=== PATIENT | female | born 1955 | race Caucasian/White ===

== ENCOUNTER → 2016-09-17 | Outpatient (CLI) | payer BC ==
[2016-09-17 15:25] LABS: CH 32.3; CHCM 33.4; HCT 36.3 % (34.0-46.0); HDW 2.37; Large Platelets Flag Moderate; MCH 32.2 pg (25.0-35.0); MCHC 33.1 g/dL (31.0-37.0); MCV 97.4 fL (80.0-100.0); RBC 3.72 m/uL (3.80-5.40); RDW 13.9 % (11.5-15.5); WBC 6.8 k/uL (3.8-10.6)
[2016-09-17 15:30] LABS: Appearance,Urine Cloudy (Clear); Bacteria,Urine Many /hpf; Bilirubin,Urine Negative (Negative); Glucose,Urine (UA) 1+ (Negative); Ketones,Urine Negative (Negative); Leukocyte Esterase,Urine Large (Negative); Nitrite,Urine Negative (Negative); Particle Count 1460; Protein,Urine Negative (Negative); RBC,Urine 1 /hpf (0-5); Specific Gravity,Urine 1.007 (1.001-1.035); Squamous Epithelial Cell,Urine 2 /hpf (0-4); UA Billing (MACRO vs. MICRO) MICRO; WBC,Urine 159 /hpf (0-5)
== END | disposition home or self-care (01) ==
LOC: LABWHC1 14:52
PROVIDERS: ATTEND Internal Medicine Endocrinology, Diabetes & Metabolism
DX: N30.00 Acute cystitis without hematuria (principal); E11.65 Type 2 diabetes mellitus with hyperglycemia
CPT/HCPCS: 36415; 81001; 85027; 87077; 87086; 87186

== ENCOUNTER 2016-09-21 14:11 | Emergency (ER) | payer BC ==
[2016-09-21 14:21] VITALS: PULSE 67; TEMP 97
[2016-09-21] MEDS ORDERED: SODIUM CHLORIDE 0.9% 500 ML IV STA (16:19)
[2016-09-21 16:46] LABS: Appearance,Urine Clear (Clear); Bilirubin,Urine 1+ (Negative); Glucose,Urine (UA) Negative (Negative); Ketones,Urine Negative (Negative); Leukocyte Esterase,Urine Negative (Negative); Nitrite,Urine Negative (Negative); Protein,Urine Negative (Negative); Specific Gravity,Urine 1.009 (1.001-1.035); UA Billing (MACRO vs. MICRO) CHEM
--- NOTE | 2016-09-21 16:54 | ED ---
Nausea/Vomiting/Diarrhea HPI - General Chief complaint: Nausea/Vomiting/Diarrhea Stated complaint: UTI Time Seen by Provider: 09/21/16 15:58 Source: patient, RN notes reviewed Mode of arrival: ambulatory Limitations: no limitations - History of Present Illness Initial comments: 61-year-old female presents emergency Department with multiple abdominal complaints. Patient states that the symptoms. She did this she was discharged on metformin which she was having diarrhea. Patient states that the point she was switched off the metformin and was black on her NovoLog. Patient states that recently she has been having some dysuria and was placed on ciprofloxacin for UTI. Patient states she seems there is no improvement this time she states she has abdominal discomfort and continue urination issues. Patient denies any fever, chills denies any nausea vomiting currently but states that she did have a few episodes other day no she saw her primary care physician for all this. Patient also complains of a cough which is slightly productive. - Related Data Home Medications Medication Instructions Recorded Confirmed Atenolol [Tenormin] 25 mg PO BID 01/14/15 09/21/16 Hydrochlorothiazide [Hydrodiuril] 25 mg PO DAILY 01/14/15 09/21/16 Insulin Aspart [Novolog Flexpen] 25 unit SQ AC-TID 01/14/15 09/21/16 Insulin Glargine,Hum.rec.anlog 115 unit SQ HS 01/14/15 09/21/16 [Lantus Solostar] Aspirin 81 mg PO DAILY 09/09/15 09/21/16 Insulin Glargine,Hum.rec.anlog 35 unit SQ QAM 09/09/15 09/21/16 [Lantus Solostar] Ciprofloxacin HCl [Cipro] 500 mg PO BID 09/21/16 09/21/16 Losartan Potassium 100 mg PO DAILY 09/21/16 09/21/16 Multivit-Min/Iron/Folic/Lutein 1 tab PO DAILY 09/21/16 09/21/16 [Centrum Silver Women Tablet] Previous Rx's Medication Instructions Recorded Benzonatate [Tessalon Perles] 100 mg PO TID PRN #15 capsule 09/21/16 Allergies Allergy/AdvReac Type Severity Reaction Status Date / Time Penicillins Allergy Unknown Verified 09/21/16 16:24 Childhood Review of Systems ROS Statement: Those systems with pertinent positive or pertinent negative responses have been documented in the HPI. ROS Other: All systems not noted in ROS Statement are negative. Past Medical History Past Medical History: Diabetes Mellitus, Hypertension, Skin Disorder Additional Past Medical History / Comment(s): Eczema, hx. kidney stone, neuropathy dewey feet and hands, occas lightheaded and dizziness, dewey charcot feet. History of Any Multi-Drug Resistant Organisms: None Reported Past Surgical History: Hysterectomy Additional Past Surgical History / Comment(s): kidney stone Past Anesthesia/Blood Transfusion Reactions: No Reported Reaction Past Psychological History: No Psychological Hx Reported Smoking Status: Never smoker - Past Family History Mother Family Medical History: No Reported History Father Family Medical History: No Reported History Sister(s) Family Medical History: Cancer Additional Family Medical History / Comment(s): Colon General Exam Limitations: no limitations General appearance: alert, in no apparent distress Head exam: Present: atraumatic, normocephalic, normal inspection Respiratory exam: Present: normal lung sounds bilaterally. Absent: respiratory distress, wheezes, rales, rhonchi, stridor Cardiovascular Exam: Present: regular rate, normal rhythm, normal heart sounds. Absent: systolic murmur, diastolic murmur, rubs, gallop, clicks GI/Abdominal exam: Present: soft, tenderness (Mild to moderate diffuse), normal bowel sounds. Absent: distended, guarding, rebound, rigid Back exam: Absent: CVA tenderness (R), CVA tenderness (L) Neurological exam: Present: alert, oriented X3, CN II-XII intact Skin exam: Present: warm, dry, intact, normal color. Absent: rash Course Vital Signs 09/21/16 09/21/16 14:17 18:20 Temperature 97.0 F L Pulse Rate 67 67 Respiratory 18 16 Rate Blood Pressure 101/60 130/57 O2 Sat by Pulse 98 97 Oximetry Medical Decision Making - Medical Decision Making 61-year-old female presented for multiple complaints. Patient urinalysis does not show any evidence DVT I she did have UTI a few days ago culture does show ciprofloxacin is susceptible. Patient did have mild elevation of her liver function ultrasound does not show an acute abnormality and looking through past medical history of her lab results it does show elevation of his liver functions. Patient complained of cough which x-ray does not show an acute abnormality. Patient has no evidence of leukocytosis no fever and vitals are stable. Patient be discharged with her symptoms for her cough advised follow- up with on-call GI doctor tomorrow for evaluation return parameters were discussed. - Lab Data Result diagrams: 09/21/16 17:00 09/21/16 17:00 Lab Results 09/21/16 09/21/16 09/21/16 Range/Units 16:43 17:00 17:00 WBC 7.7 (3.8-10.6) k/uL RBC 3.71 L (3.80-5.40) m/uL Hgb 12.2 (11.4-16.0) gm/dL Hct 35.8 (34.0-46.0) % MCV 96.5 (80.0-100.0) fL MCH 32.8 (25.0-35.0) pg MCHC 34.0 (31.0-37.0) g/dL RDW 14.6 (11.5-15.5) % Plt Count 125 L (150-450) k/uL Neutrophils % 75 % Lymphocytes % 14 % Monocytes % 6 % Eosinophils % 2 % Basophils % 0 % Neutrophils # 5.8 (1.3-7.7) k/uL Lymphocytes # 1.1 (1.0-4.8) k/uL Monocytes # 0.5 (0-1.0) k/uL Eosinophils # 0.2 (0-0.7) k/uL Basophils # 0.0 (0-0.2) k/uL Sodium 137 (137-145) mmol/L Potassium 3.9 (3.5-5.1) mmol/L Chloride 99 (98-107) mmol/L Carbon Dioxide 26 (22-30) mmol/L Anion Gap 12 mmol/L BUN 23 H (7-17) mg/dL Creatinine 1.00 (0.52-1.04) mg/dL Est GFR (MDRD) Af Amer >60 (>60 ml/min/1.73 sqM) Est GFR (MDRD) Non-Af 56 (>60 ml/min/1.73 sqM) Glucose 221 H (74-99) mg/dL Calcium 8.8 (8.4-10.2) mg/dL Total Bilirubin 3.1 H (0.2-1.3) mg/dL AST 75 H (14-36) U/L ALT 73 H (9-52) U/L Alkaline Phosphatase 315 H (38-126) U/L Total Protein 6.3 (6.3-8.2) g/dL Albumin 3.5 (3.5-5.0) g/dL Amylase <30 L (30-110) U/L Lipase 45 (23-300) U/L Urine Color Dark Yellow Urine Appearance Clear (Clear) Urine pH 5.0 (5.0-8.0) Ur Specific [place] 1.009 (1.001-1.035) Urine Protein Negative (Negative) Urine Glucose (UA) Negative (Negative) Urine Ketones Negative (Negative) Urine Blood Negative (Negative) Urine Nitrite Negative (Negative) Urine Bilirubin 1+ H (Negative) Urine Urobilinogen 3.0 (<2.0) mg/dL Ur Leukocyte Esterase Negative (Negative) Disposition Clinical Impression: Abdominal pain, Cough, Recent urinary tract infection Disposition: HOME SELF-CARE Condition: Stable Instructions: Abdominal Pain (ED) Additional Instructions: Please return to the Emergency Department if symptoms worsen or any other concerns. Prescriptions: Benzonatate [Tessalon Perles] 100 mg PO TID PRN #15 capsule PRN Reason: Cough Referrals: Matias Baron DO [Primary Care Provider] - 1-2 days Yolie Chahal MD [STAFF PHYSICIAN] - 1-2 days Time of Disposition: 18:33
[2016-09-21 17:16] LABS: Basophils % (A) 0 %; CH 32.6; Eosinophils # (A) 0.2 k/uL (0-0.7); Eosinophils % (A) 2 %; HCT 35.8 % (34.0-46.0); HDW 2.43; HGB 12.2 gm/dL (11.4-16.0); Large Platelets Flag Slight; Luc # (Auto) 0.13; Luc % (Auto) 2; Lymphocytes # (A) 1.1 k/uL (1.0-4.8); Lymphocytes % (A) 14 %; MCH 32.8 pg (25.0-35.0); MCV 96.5 fL (80.0-100.0); Mean Platelet Volume 11.7; Monocytes # (A) 0.5 k/uL (0-1.0); Monocytes % (A) 6 %; Neutrophils # (A) 5.8 k/uL (1.3-7.7); Neutrophils % (A) 75 %; RBC 3.71 m/uL (3.80-5.40); RDW 14.6 % (11.5-15.5); WBC 7.7 k/uL (3.8-10.6)
[2016-09-21 17:21] LABS: ALT 73 U/L (9-52); AST 75 U/L (14-36); Alkaline Phosphatase 315 U/L (38-126); Amylase <30 U/L (30-110); Anion Gap 12 mmol/L; Blood Urea Nitrogen 23 mg/dL (7-17); Calcium 8.8 mg/dL (8.4-10.2); Carbon Dioxide 26 mmol/L (22-30); Chloride 99 mmol/L (98-107); Glucose 221 mg/dL (74-99); Non-African American GFR(MDRD) 56 (>60 ml/min/1.73 sqM); Potassium 3.9 mmol/L (3.5-5.1); Sodium 137 mmol/L (137-145); Total Bilirubin 3.1 mg/dL (0.2-1.3); Total Protein 6.3 g/dL (6.3-8.2)
--- NOTE | 2016-09-21 17:34 | XR ---
EXAMINATION TYPE: XR KUB DATE OF EXAM: 09/21/2016 COMPARISON: NONE HISTORY: Vomiting TECHNIQUE: 2 views FINDINGS: There is no sign of intestinal obstruction or pneumoperitoneum. Fecal pattern is normal. Th ere are phleboliths in the pelvis. There are no pathologic calcifications over the kidneys. IMPRESSION: Nonacute abdomen.
--- NOTE | 2016-09-21 17:35 | XR ---
EXAMINATION TYPE: XR chest 2V DATE OF EXAM: 09/21/2016 COMPARISON: 01/14/2015 HISTORY: Difficulty urinating dizziness TECHNIQUE: Frontal and lateral views of the chest are obtained. FINDINGS: There is no heart failure nor confluent pneumonic infiltrate. Thoracic aorta is atheromato us. There are no hilar masses. There is no pleural effusion. Bony thorax appears intact. IMPRESSION: No active cardiopulmonary disease. There is improved inspiration compared to old exam.
[2016-09-21 18:21] VITALS: BP 130/57; RESP 16
--- NOTE | 2016-09-21 18:29 | US ---
EXAMINATION TYPE: US abdomen limited DATE OF EXAM: 09/21/2016 COMPARISON: NONE CLINICAL HISTORY: Nausea, vomiting. Difficult/limited exam due to large amount of overlying bowel gas and patient's inability to hold her breath due to her cough. EXAM MEASUREMENTS: Liver Length: 18.9 cm Gallbladder Wall: 0.2 cm CBD: 0.4 cm Right Kidney: 12.6 x 5.3 x 5.7 cm Pancreas: Obscured by bowel gas Liver: Limited visualization. Enlarged, heterogeneous Gallbladder: wnl Evidence for sonographic Preciado's sign: No CBD: wnl as visualized Right Kidney: No hydronephrosis or masses seen IMPRESSION: Negative exam. No gallstones or dilated ducts.
== END 2016-09-21 18:44 | disposition home or self-care (01) ==
LOC: EC 14:11
DX: N39.0 Urinary tract infection, site not specified (principal); R05 Cough; R19.7 Diarrhea, unspecified; I10 Essential (primary) hypertension; E11.9 Type 2 diabetes mellitus without complications; Z87.442 Personal history of urinary calculi; Z79.82 Long term (current) use of aspirin; Z79.4 Long term (current) use of insulin; Z79.899 Other long term (current) drug therapy; Z88.0 Allergy status to penicillin
CPT/HCPCS: 36415; 71020; 74000; 76705; 80053; 81003; 82150; 83690; 85025; 96360; 96361; 99284

== ENCOUNTER 2016-10-21 14:24 | Inpatient (IN) | payer BC ==
[2016-10-21] MEDS ORDERED: SODIUM CHLORIDE 0.9% 1,000 ML IV STA (15:25)
[2016-10-21] MEDS ORDERED: SODIUM CHLORIDE 0.9% 500 ML IV STA (15:25)
--- NOTE | 2016-10-21 15:37 | ED ---
Dizziness HPI - General Chief Complaint: Dizziness Stated Complaint: Dizziness. Brought from CT Time Seen by Provider: 10/21/16 14:36 Source: patient, RN notes reviewed Mode of arrival: wheelchair Limitations: no limitations - History of Present Illness Initial Comments: This is a 61-year-old female with brought in for evaluation with complaints of 2 months of nausea and vomiting. She occasionally will have bilious colored vomit. Chills weak lightheaded dizzy she also states she's been itchy. She was seen by her doctor today and sent here for evaluation. The CAT scan was performed the patient is showing nonspecific findings hepatic Jose disease is considered. Gallstones no evidence of any obstruction or gallbladder inflammation. MD Complaint: dizziness, lightheadedness, other - Related Data Home Medications Medication Instructions Recorded Confirmed Atenolol [Tenormin] 25 mg PO BID 01/14/15 10/21/16 Hydrochlorothiazide [Hydrodiuril] 25 mg PO DAILY 01/14/15 10/21/16 Insulin Aspart [Novolog Flexpen] 25 unit SQ AC-TID 01/14/15 10/21/16 Insulin Glargine,Hum.rec.anlog 80 unit SQ HS 01/14/15 10/21/16 [Lantus Solostar] Aspirin 81 mg PO DAILY 09/09/15 10/21/16 Insulin Glargine,Hum.rec.anlog 35 unit SQ QAM 09/09/15 10/21/16 [Lantus Solostar] Losartan Potassium 100 mg PO DAILY 09/21/16 10/21/16 Allergies Allergy/AdvReac Type Severity Reaction Status Date / Time Penicillins Allergy Unknown Verified 10/21/16 14:49 Childhood Review of Systems ROS Statement: Those systems with pertinent positive or pertinent negative responses have been documented in the HPI. ROS Other: All systems not noted in ROS Statement are negative. Past Medical History Past Medical History: Diabetes Mellitus, Hypertension, Skin Disorder Additional Past Medical History / Comment(s): Eczema, hx. kidney stone, neuropathy dewey feet and hands, occas lightheaded and dizziness, dewey charcot feet. History of Any Multi-Drug Resistant Organisms: None Reported Past Surgical History: Hysterectomy Additional Past Surgical History / Comment(s): kidney stone Past Anesthesia/Blood Transfusion Reactions: No Reported Reaction Past Psychological History: No Psychological Hx Reported Smoking Status: Never smoker Past Alcohol Use History: None Reported Past Drug Use History: None Reported - Past Family History Mother Family Medical History: No Reported History Father Family Medical History: No Reported History Sister(s) Family Medical History: Cancer Additional Family Medical History / Comment(s): Colon General Exam - General Exam Comments Initial Comments: This is a well-developed well-nourished awake alert oriented 3 female Limitations: no limitations General appearance: alert, in no apparent distress Head exam: Present: atraumatic, normocephalic, normal inspection Eye exam: Present: normal appearance, PERRL, EOMI. Absent: scleral icterus, conjunctival injection, periorbital swelling ENT exam: Present: mucous membranes dry Neck exam: Present: normal inspection. Absent: tenderness, meningismus, lymphadenopathy Respiratory exam: Present: normal lung sounds bilaterally. Absent: respiratory distress, wheezes, rales, rhonchi, stridor Cardiovascular Exam: Present: regular rate, normal rhythm, normal heart sounds. Absent: systolic murmur, diastolic murmur, rubs, gallop, clicks GI/Abdominal exam: Present: soft, normal bowel sounds. Absent: distended, tenderness, guarding, rebound, rigid Extremities exam: Present: normal inspection, full ROM, normal capillary refill. Absent: tenderness, pedal edema, joint swelling, calf tenderness Back exam: Present: normal inspection Neurological exam: Present: alert, oriented X3, CN II-XII intact Psychiatric exam: Present: normal affect, normal mood Skin exam: Present: warm, dry, intact, other (Icteric). Absent: rash Course Vital Signs 10/21/16 14:29 Temperature 99.0 F Pulse Rate 60 Respiratory 20 Rate Blood Pressure 128/60 O2 Sat by Pulse 98 Oximetry Medical Decision Making - Medical Decision Making I did discuss findings with patient family with Dr. Baron the patient will be admitted for evaluation of jaundice and dehydration. The GI service will be consulted. - Radiology Data Radiology results: report reviewed (I did review the imaging and report.), image reviewed Disposition Clinical Impression: Jaundice, Dehydration, Failure to thrive, Intractable vomiting Disposition: ADMITTED IP TO THIS [facility] Condition: Stable Referrals: Matias Baron DO [Primary Care Provider] - 1-2 days
[2016-10-21] MEDS ORDERED: NALOXONE 0.4 MG/ML 1 ML VIAL IV PRN (15:40)
[2016-10-21 15:58] LABS: Basophils % (A) 0 %; CH 32.3; CHCM 33.2; Eosinophils # (A) 0.2 k/uL (0-0.7); Eosinophils % (A) 2 %; HCT 34.3 % (34.0-46.0); HDW 2.26; HGB 11.8 gm/dL (11.4-16.0); Large Platelets Flag Moderate; Luc # (Auto) 0.15; Luc % (Auto) 2; Lymphocytes # (A) 1.4 k/uL (1.0-4.8); Lymphocytes % (A) 14 %; MCH 33.7 pg (25.0-35.0); MCHC 34.4 g/dL (31.0-37.0); MCV 97.8 fL (80.0-100.0); Mean Platelet Volume 11.4; Monocytes # (A) 0.5 k/uL (0-1.0); Monocytes % (A) 5 %; Neutrophils # (A) 7.4 k/uL (1.3-7.7); Neutrophils % (A) 77 %; WBC 9.7 k/uL (3.8-10.6); WBC (Perox) 9.89
[2016-10-21 16:13] LABS: ALT 99 U/L (9-52); AST 102 U/L (14-36); Alkaline Phosphatase 480 U/L (38-126); Amylase <30 U/L (30-110); Anion Gap 11 mmol/L; Blood Urea Nitrogen 18 mg/dL (7-17); Calcium 8.6 mg/dL (8.4-10.2); Carbon Dioxide 26 mmol/L (22-30); Chloride 99 mmol/L (98-107); Glucose 170 mg/dL (74-99); Non-African American GFR(MDRD) >60 (>60 ml/min/1.73 sqM); Sodium 136 mmol/L (137-145); Total Bilirubin 7.2 mg/dL (0.2-1.3); Total Protein 6.3 g/dL (6.3-8.2)
[2016-10-21 16:19] LABS: INR 1.3 (<1.2); Prothrombin Time 12.5 sec (9.0-12.0)
[2016-10-21 17:01] LABS: Hepatitis C Virus IgG Ab Negative (Negative); Hepatitis C Virus IgG Index 0.02
[2016-10-21 17:02] LABS: Hepatitis B Surface Ag Index 0.05
[2016-10-21 17:03] LABS: Hepatitis B Core IgM Index 0.01
[2016-10-21 17:30] LABS: Glucose,Whole Blood 124 mg/dL (75-99)
[2016-10-21] MEDS: INSULIN LISPRO (humaLOG) 300 UNIT/3 ML VIAL SQ SCH ×2 (17:58→22:24)
[2016-10-21] MEDS: 0.9% NACL WITH KCL 20 MEQ/L 1,000 ML IV SCH (18:00)
[2016-10-21] MEDS: ONDANSETRON 4 MG/2 ML VIAL IVP PRN (18:01)
[2016-10-21 18:08] LABS: Appearance,Urine Cloudy (Clear); Bacteria,Urine Occasional /hpf; Bilirubin,Urine 1+ (Negative); Glucose,Urine (UA) Negative (Negative); Ketones,Urine Negative (Negative); Leukocyte Esterase,Urine Large (Negative); Mucus,Urine Rare /hpf; Nitrite,Urine Negative (Negative); PH, Urine 5.5 (5.0-8.0); Particle Count 72739; Protein,Urine Negative (Negative); Specific Gravity,Urine 1.007 (1.001-1.035); Squamous Epithelial Cell,Urine 1 /hpf (0-4); UA Billing (MACRO vs. MICRO) MICRO; WBC,Urine 73 /hpf (0-5)
[2016-10-21] MEDS ORDERED: HYDROmorphone 1 MG/ML 1 ML SYRINGE IVP PRN (18:46)
[2016-10-21] MEDS: ATENOLOL 25 MG TAB PO SCH (20:28)
[2016-10-21 21:25] LABS: Glucose,Whole Blood 83 mg/dL (75-99)
[2016-10-22] MEDS: ONDANSETRON 4 MG/2 ML VIAL IVP PRN ×4 (04:51→21:54)
[2016-10-22] MEDS: 0.9% NACL WITH KCL 20 MEQ/L 1,000 ML IV SCH ×3 (04:55→21:55)
[2016-10-22 07:43] LABS: Glucose,Whole Blood 96 mg/dL (75-99)
[2016-10-22] MEDS: INSULIN LISPRO (humaLOG) 300 UNIT/3 ML VIAL SQ SCH ×6 (08:18→21:55)
[2016-10-22] MEDS: LEVOFLOXACIN 250MG-D5W PMX 250 MG in DEXTROSE/WATER 1 50ML.BAG IVPB SCH (08:39)
--- NOTE | 2016-10-22 09:51 | P.CONS ---
History of Present Illness - Reason for Consult Consult date: 10/22/16 jaundice nausea vomiting Requesting physician: Matias Baron - History of Present Illness 61-year-old female history of diabetes 35 years, hypertension eczema recent E. coli UTI August 2016 presents with pruritus, intractable nausea and nonbloody bilious vomiting 2 months with right-sided abdominal pain and new onset of jaundice. Consultation requested for jaundice nausea and vomiting. Admission total bilirubin 7.2. AST 102. ALT 99. Alkaline phosphates 480. Lipase 59. Amylase less than 30. INR 1.3. White count 9.7. Hemoglobin 11.8. Platelet 131. MCV 97. Hepatitis screen negative. Patient has noticed darker colored urine for the last 2 months but exacerbated over the last week. Noticed jaundice skin color over the last week. No changes in medications. No history of alcoholism, hepatitis or known liver disorders. Conjugated bilirubin 3.0. Unconjugated 1.3. Delta 3.3. Her chemistries 09/21/2016 total bilirubin 3.1. AST 75. ALT 73. Alkaline phosphatase 315. Liver enzymes normal February 2016. Iron indices June 2016; iron 192. TIBC to 212. Iron saturation 90%. Medications losartan, insulin, hydro-diarrheal, Tenormin, and aspirin. 10/21/16 CT abdomen and liver small in size lobulated and contour suspicious for underlying cirrhosis with gallstones/sludge. Pancreas spleen normal. No ascites. 09/21/16 ultrasound abdomen liver 18.9 cm. Gallbladder wall 0.2cm. CBD 0.4 cm with no evidence of gallstones or dilated ducts. Review of Systems Constitutional: Denies fever, chills, sweats, weight gain, or loss. HEENT: Negative for migraines, blurred vision or loss, earaches, drainage, tinnitus, oral mucosal lesions, dysphagia, or odynophagia. CARDIAC: Hypertension. Negative for chest pain, arrhythmias, or palpitation. RESPIRATORY: Negative for shortness of breath, hemoptysis, cough, or sputum production. GI: See HPI for pertinent findings. : Negative for hematuria, urgency, frequency, polyuria, or dysuria. GYNc: Denies possibility of . Negative vaginal discharge. MUSCULOSKELETAL: Negative for muscle aches, swelling, arthritis, and arthralgias. NEUROLOGIC: Negative for stroke or TIA. ENDOCRINE: Diabetes mellitus. Negative for thyroid problems. SKIN: Eczema. PSYCHIATRIC: Negative history for depression and anxiety All systems: negative (See HPI) Past Medical History Past Medical History: Diabetes Mellitus, Hypertension, Skin Disorder Additional Past Medical History / Comment(s): Eczema, hx. kidney stone, neuropathy dewey feet and hands, occas lightheaded and dizziness, dewey charcot feet.uti-ecoli 09-17-16, "iritis", had pne vaccine approx 2 years ago not sure of date History of Any Multi-Drug Resistant Organisms: None Reported Past Surgical History: Hysterectomy, Tubal Ligation Additional Past Surgical History / Comment(s): kidney stone, dewye cataracts Past Anesthesia/Blood Transfusion Reactions: No Reported Reaction Smoking Status: Never smoker - Past Family History Mother Family Medical History: No Reported History Father Family Medical History: No Reported History Sister(s) Family Medical History: Cancer Additional Family Medical History / Comment(s): Colon Medications and Allergies Home Medications Medication Instructions Recorded Confirmed Type Atenolol [Tenormin] 25 mg PO BID 01/14/15 10/21/16 History Hydrochlorothiazide [Hydrodiuril] 25 mg PO DAILY 01/14/15 10/21/16 History Insulin Aspart [Novolog Flexpen] 25 unit SQ AC-TID 01/14/15 10/21/16 History Insulin Glargine,Hum.rec.anlog 80 unit SQ HS 01/14/15 10/21/16 History [Lantus Solostar] Aspirin 81 mg PO DAILY 09/09/15 10/21/16 History Insulin Glargine,Hum.rec.anlog 35 unit SQ QAM 09/09/15 10/21/16 History [Lantus Solostar] Losartan Potassium 100 mg PO DAILY 09/21/16 10/21/16 History Allergies Allergy/AdvReac Type Severity Reaction Status Date / Time Penicillins Allergy Unknown Verified 10/21/16 14:49 Childhood Physical Exam Vitals: Vital Signs Temp Pulse Pulse Pulse Resp BP BP 10/21/16 23:00 97.6 F 77 20 114/60 10/21/16 20:27 66 136/63 10/21/16 18:57 98.4 F 67 18 143/62 10/21/16 16:37 98.4 F 64 18 145/78 10/21/16 15:39 63 16 144/64 10/21/16 14:29 99.0 F 60 20 128/60 Pulse Ox 10/21/16 23:00 93 L 10/21/16 20:27 95 10/21/16 18:57 97 10/21/16 16:37 98 10/21/16 15:39 97 10/21/16 14:29 98 Intake and Output 10/21/16 10/22/16 10/22/16 22:59 06:59 14:59 Intake Total 1000 100 Balance 1000 100 Intake: Oral 1000 100 Other: Voiding Method Bedside Commode Bedside Commode # Voids 1 1 General appearance: The patient is alert, oriented, in no acute distress. Jaundice. HET: Head is normocephalic and atraumatic. Pupils are equal and reactive. Sclerae icterus. Oropharynx is clear without lesions. Neck: Supple without lymphadenopathy. Trachea midline. Heart: S1 S2. Regular rate and rhythm. Lungs: No crackles or wheezes are heard. Abdomen: Soft, mild tenderness to the right mid quadrant, nondistended with bowel sounds. No peritoneal signs. No palpable organomegaly or masses. Extremities: Normal skin color and turgor. No cyanosis, rash, ulceration, clubbing, or edema. Radial and pedal pulses are 2/4 bilaterally. Neurological: No focal deficits. Strength and sensation are grossly intact. Results CBC & Chem 7: 10/23/16 07:59 10/23/16 07:59 Labs: Abnormal Lab Results - Last 24 Hours (Table) 10/21/16 10/21/16 10/21/16 Range/Units 15:40 15:40 15:40 RBC 3.50 L (3.80-5.40) m/uL Plt Count 131 L (150-450) k/uL PT 12.5 H (9.0-12.0) sec INR 1.3 H (<1.2) Sodium 136 L (137-145) mmol/L BUN 18 H (7-17) mg/dL Glucose 170 H (74-99) mg/dL POC Glucose (mg/dL) (75-99) mg/dL Hemoglobin A1c (4.2-6.1) % Total Bilirubin 7.2 H (0.2-1.3) mg/dL AST 102 H (14-36) U/L ALT 99 H (9-52) U/L Alkaline Phosphatase 480 H (38-126) U/L Albumin 3.1 L (3.5-5.0) g/dL Amylase <30 L (30-110) U/L Urine Appearance (Clear) Urine Bilirubin (Negative) Ur Leukocyte Esterase (Negative) Urine WBC (0-5) /hpf Urine Bacteria (None) /hpf Urine Mucus (None) /hpf 10/21/16 10/21/16 10/21/16 Range/Units 15:40 17:27 18:02 RBC (3.80-5.40) m/uL Plt Count (150-450) k/uL PT (9.0-12.0) sec INR (<1.2) Sodium (137-145) mmol/L BUN (7-17) mg/dL Glucose (74-99) mg/dL POC Glucose (mg/dL) 124 H (75-99) mg/dL Hemoglobin A1c 7.0 H (4.2-6.1) % Total Bilirubin (0.2-1.3) mg/dL AST (14-36) U/L ALT (9-52) U/L Alkaline Phosphatase (38-126) U/L Albumin (3.5-5.0) g/dL Amylase (30-110) U/L Urine Appearance Cloudy H (Clear) Urine Bilirubin 1+ H (Negative) Ur Leukocyte Esterase Large H (Negative) Urine WBC 73 H (0-5) /hpf Urine Bacteria Occasional H (None) /hpf Urine Mucus Rare H (None) /hpf CT scan - abdomen: report reviewed (Dr. Hansen) US - abdomen: report reviewed (Dr. Hansen) Assessment and Plan (1) Jaundice Narrative/Plan: Cholestatic jaundice. Possible extrahepatic jaundice. 61-year-old female with a history of right-sided abdominal pain new-onset of jaundice elevated LFTs radiographic imaging suggestive of gallstones and possible underlying cirrhosis suspect choledocholithiasis possible underlying chronic liver disease, infiltrative autoimmune liver disease. Status: Acute (2) Cholelithiasis Status: Acute (3) Cirrhosis of liver Narrative/Plan: Possible cirrhosis of the liver per CT imaging Status: Acute Plan: 1. ERCP. 2. Srologic workup for chronic liver disease. 3. Avoid hepatotoxic medications. The vacuum extractor operator has discussed the risks, benefits and alternative therapies for the above-mentioned procedure and for both sedation/analgesia as well as necessary blood product administration, if indicated, as they pertain to this patient. The patient has indicated understanding and acceptance of the risks and procedures discussed. Thank you for this kind referral and the opportunity to participate in the care of your patient. This consultation was discussed with Dr. Hansen. The impression and plan of care have been directed as dictated.
[2016-10-22 09:53] VITALS: BMI 36.0
[2016-10-22] MEDS: INSULIN GLARGINE 100 UNIT/ML 10 ML VIAL SQ SCH ×2 (10:36→21:54)
[2016-10-22] MEDS: ATENOLOL 25 MG TAB PO SCH ×2 (10:56→21:54)
[2016-10-22 12:17] LABS: Glucose,Whole Blood 110 mg/dL (75-99)
--- NOTE | 2016-10-22 12:35 | P.HPIM ---
History of Present Illness H&P Date: 10/22/16 Chief Complaint: Jaundice, Nausea 61-year-old female who originally presented to her primary care office on 2016 with a chief complaint jaundice, and 3 weeks of nausea and vomiting that is worsening. The patient was also feeling weak, lightheaded, and dizzy and also complained of itching. The patient is also been experiencing darker colored urine and jenifer-colored stools recently. The patient denies history of alcohol consumption. The patient has a history of essential hypertension and diabetes A CT of the abdomen was performed showed liver small in size lobulated and contour suspicious for underlying cirrhosis with gallstones and sludge. Pancreas and spleen was normal. No ascites was present. The patient was admitted to the hospital and started on IV hydration. GI service was consulted Review of Systems GENERAL: Patient denies fever, chills, weight gain, or weight loss. RESPIRATORY: Denies dyspnea, cough, sputum production, or hemoptysis. CARDIOVASCULAR: Denies chest pain, pressure, palpitations, claudication, or arrhythmias. GI: Positive for abdominal pain, jenifer-colored stools, nausea, vomiting. Denies any blood in the stool : positive for concentrated / dark urine. Denies urinary frequency, burning, dysuria, or cloudy urine. Denies blood in the urine. MUSCULOSKELETAL: Denies pain or tenderness. Denies cramps, swelling, or decreased range of motion. Past Medical History Past Medical History: Diabetes Mellitus, Hypertension, Skin Disorder Additional Past Medical History / Comment(s): Eczema, hx. kidney stone, neuropathy dewey feet and hands, occas lightheaded and dizziness, dewey charcot feet.uti-ecoli 09-17-16, "iritis", had pne vaccine approx 2 years ago not sure of date History of Any Multi-Drug Resistant Organisms: None Reported Past Surgical History: Hysterectomy, Tubal Ligation Additional Past Surgical History / Comment(s): kidney stone, dewey cataracts Past Anesthesia/Blood Transfusion Reactions: No Reported Reaction Past Psychological History: No Psychological Hx Reported Smoking Status: Never smoker Past Alcohol Use History: None Reported Additional Past Alcohol Use History / Comment(s): pt lives at home with her spouse samantha. pt uses cane/walker/w/c also has glucometer Past Drug Use History: None Reported - Past Family History Mother Family Medical History: No Reported History Father Family Medical History: No Reported History Sister(s) Family Medical History: Cancer Additional Family Medical History / Comment(s): Colon Medications and Allergies Home Medications Medication Instructions Recorded Confirmed Type Atenolol [Tenormin] 25 mg PO BID 01/14/15 10/21/16 History Hydrochlorothiazide [Hydrodiuril] 25 mg PO DAILY 01/14/15 10/21/16 History Insulin Aspart [Novolog Flexpen] 25 unit SQ AC-TID 01/14/15 10/21/16 History Insulin Glargine,Hum.rec.anlog 80 unit SQ HS 01/14/15 10/21/16 History [Lantus Solostar] Aspirin 81 mg PO DAILY 09/09/15 10/21/16 History Insulin Glargine,Hum.rec.anlog 35 unit SQ QAM 09/09/15 10/21/16 History [Lantus Solostar] Losartan Potassium 100 mg PO DAILY 09/21/16 10/21/16 History Allergies Allergy/AdvReac Type Severity Reaction Status Date / Time Penicillins Allergy Unknown Verified 10/21/16 14:49 Childhood Physical Exam Vitals: Vital Signs Temp Pulse Pulse Pulse Resp BP BP 10/22/16 09:27 97.9 F 77 16 132/83 10/22/16 08:00 20 10/22/16 07:00 97.9 F 77 16 132/83 10/21/16 23:00 97.6 F 77 20 114/60 10/21/16 20:27 66 136/63 10/21/16 18:57 98.4 F 67 18 143/62 10/21/16 16:37 98.4 F 64 18 145/78 10/21/16 15:39 63 16 144/64 10/21/16 14:29 99.0 F 60 20 128/60 Pulse Ox 10/22/16 09:27 95 10/22/16 08:00 10/22/16 07:00 97 10/21/16 23:00 93 L 10/21/16 20:27 95 10/21/16 18:57 97 10/21/16 16:37 98 10/21/16 15:39 97 10/21/16 14:29 98 Intake and Output 10/21/16 10/22/16 10/22/16 22:59 06:59 14:59 Intake Total 1000 100 Balance 1000 100 Intake: Oral 1000 100 Other: Voiding Method Bedside Commode Bedside Commode Bedside Commode # Voids 1 1 1 Weight 107.501 kg Patient Weight 10/23/16 06:59 Weight 107.501 kg GENERAL: Jaundiced, improving. Alert and oriented. Appears in no acute distress. Pleasant. RESPIRATORY: Lungs clear bilaterally, diminished at bases No use of accessory muscles. Patient maintaining oxygen saturation greater than 92%. CARDIOVASCULAR: S1 and S2 noted. No murmurs auscultated. No JVD noted. EXTREMITIES: No edema noted. Palpable pedal pulses +2. ABDOMEN: Obese, pain and tenderness noted upon palpation of right upper quadrant. Normal active bowel sounds auscultated 4 quadrants. Results CBC & Chem 7: 10/21/16 15:40 10/21/16 15:40 Labs: Abnormal Lab Results - Last 24 Hours (Table) 10/21/16 10/21/16 10/21/16 Range/Units 15:40 15:40 15:40 RBC 3.50 L (3.80-5.40) m/uL Plt Count 131 L (150-450) k/uL PT 12.5 H (9.0-12.0) sec INR 1.3 H (<1.2) Sodium 136 L (137-145) mmol/L BUN 18 H (7-17) mg/dL Glucose 170 H (74-99) mg/dL POC Glucose (mg/dL) (75-99) mg/dL Hemoglobin A1c (4.2-6.1) % Total Bilirubin 7.2 H (0.2-1.3) mg/dL AST 102 H (14-36) U/L ALT 99 H (9-52) U/L Alkaline Phosphatase 480 H (38-126) U/L Albumin 3.1 L (3.5-5.0) g/dL Amylase <30 L (30-110) U/L Urine Appearance (Clear) Urine Bilirubin (Negative) Ur Leukocyte Esterase (Negative) Urine WBC (0-5) /hpf Urine Bacteria (None) /hpf Urine Mucus (None) /hpf 10/21/16 10/21/16 10/21/16 Range/Units 15:40 17:27 18:02 RBC (3.80-5.40) m/uL Plt Count (150-450) k/uL PT (9.0-12.0) sec INR (<1.2) Sodium (137-145) mmol/L BUN (7-17) mg/dL Glucose (74-99) mg/dL POC Glucose (mg/dL) 124 H (75-99) mg/dL Hemoglobin A1c 7.0 H (4.2-6.1) % Total Bilirubin (0.2-1.3) mg/dL AST (14-36) U/L ALT (9-52) U/L Alkaline Phosphatase (38-126) U/L Albumin (3.5-5.0) g/dL Amylase (30-110) U/L Urine Appearance Cloudy H (Clear) Urine Bilirubin 1+ H (Negative) Ur Leukocyte Esterase Large H (Negative) Urine WBC 73 H (0-5) /hpf Urine Bacteria Occasional H (None) /hpf Urine Mucus Rare H (None) /hpf Thrombosis Risk Factor Assmnt - Choose All That Apply Any of the Below Risk Factors Present?: Yes Each Factor Represents 1 point: Obesity (BMI >25) Other Risk Factors: Yes Each Risk Factor Represents 2 Points: Age 61-74 years Other congenital or acquired thrombophilia - If yes, enter type in comment: No Thrombosis Risk Factor Assessment Total Risk Factor Score: 3 Thrombosis Risk Factor Assessment Level: Moderate Risk Assessment and Plan Plan: ASSESSMENT: 1. Abdominal pain, present on admission, possibly related to gallstones and possible liver cirrhosis 2. Jaundice, present on admission, related to elevated LFTs 3. Elevated LFTs, possibly related to gallstones and possible liver cirrhosis 4. History of essential hypertension 5. History of diabetes mellitus, type II 6. Urinary tract infection, present on admission, hemoglobin A1c 7.0 PLAN: -GI consulted, Await further recommendations from GI service -Continue levaquin for UTI -Continue IV hydration -Monitor labs -Resume home meds -Monitor capillary blood glucose and address as indicated -Monitor vital signs and address as appropriate -GI prophylaxis: Patient on Protonix 40 mg daily -DVT prophylaxis: on hold due to possible procedures to be performed by GI service The above impression and plan of care have been discussed and directed by signing physician. Faith Peña, nurse practitioner, acting as scribe for signing physician.
[2016-10-22] MEDS ORDERED: INDOMETHACIN 50MG SUPPOSITORY RECTAL ONE (13:00)
[2016-10-22] MEDS ORDERED: LEVOFLOXACIN 500MG-D5W PMX 500 MG in DEXTROSE/WATER 1 100ML.BAG IVPB ONE (13:00)
[2016-10-22] MEDS ORDERED: GLYCOPYRROLATE 0.2 MG/ML 2 ML VIAL ONE (16:07)
[2016-10-22] MEDS ORDERED: PROPOFOL 10 MG/ML 20 ML VIAL IV ONE (16:07)
[2016-10-22] MEDS ORDERED: LIDOCAINE 1% INJ 10MG/ML (20 ML MDV) ONE (16:07)
[2016-10-22] MEDS ORDERED: IV FLUID CONTINUATION 400 ML IV ONE (16:11)
[2016-10-22] MEDS ORDERED: LACTATED RINGERS 1,000 ML IV ONE (16:30)
[2016-10-22] MEDS ORDERED: IOHEXOL 300 MG/ML 50 ML BOTTLE MISCELLANE ONE (16:32)
--- NOTE | 2016-10-22 17:00 | P.PCN ---
Date of Procedure: 10/22/16 Preoperative Diagnosis: Postoperative Diagnosis: Procedure(s) Performed: Procedure: Endoscopic retrograde cholangiography. Preoperative diagnosis: Chronic nausea and vomiting, cholelithiasis and jaundice. Postoperative diagnosis: Normal cholangiogram with no evidence of retained common bile duct stone. Preparation sedation: Was provided by anesthesia. Brief clinical history: The patient is a 61-year-old female with history of diabetes 35 years, hypertension, eczema, recent E. coli UTI August 2016 who presented with pruritus, intractable nausea and nonbloody bilious vomiting 2 months with right-sided abdominal pain and new onset of jaundice. Admission total bilirubin 7.2. AST 102. ALT 99. Alkaline phosphates 480. Lipase 59. Amylase less than 30. INR 1.3. White count 9.7. Hemoglobin 11.8. Platelet 131. MCV 97. Hepatitis screen negative. Her chemistries 09/21/2016 showed total bilirubin 3.1. AST 75. ALT 73. Alkaline phosphatase 315. Liver enzymes normal February 2016. Medications losartan, insulin, hydro-diarrheal, Tenormin, and aspirin. 10/21/16 CT abdomen showed liver small in size lobulated in contour suspicious for underlying cirrhosis with gallstones/sludge. Pancreas spleen normal. No ascites. 09/21/16 ultrasound abdomen liver 18.9 cm. Gallbladder wall 0.2cm. CBD 0.4 cm with no evidence of gallstones or dilated ducts. The details are summarized in the history and physical and dictated consultation and progress notes. This evaluation is to assess for common bile duct stone. Procedure: With the patient in the prone position and after informed consent and adequate sedation, I passed the Olympus video duodenoscope down the esophagus into the stomach then I passed it through the pylorus into the duodenum and brought the papilla into view. No obvious abnormalities were seen in the distal esophagus stomach or duodenum. Initial cannulation and injection with dye resulted in opacification of the common bile duct and biliary tree. The cystic duct appeared patent. The common bile duct was slightly dilated but there were no filling defects to suggest retained common bile duct stone at this time. No sphincterotomy was performed then the endoscope was withdrawn. The patient tolerated the procedure well. Plan: The patient was reassured. Its possible that she passed a stone spontaneously. The other possibility would be that we are dealing with steatohepatitis or other cause of liver inflammation on top of chronic liver disease. We will follow her liver enzymes and plan accordingly. Contingency liver biopsy. Implants: Indications for Procedure: Operative Findings: Description of Procedure:
[2016-10-22 17:17] LABS: Glucose,Whole Blood 125 mg/dL (75-99)
[2016-10-22] MEDS: ASPIRIN 81 MG CHEW PO SCH (17:27)
[2016-10-22] MEDS: HYDROCHLOROTHIAZIDE 25 MG TAB PO SCH (17:27)
[2016-10-22] MEDS: LOSARTAN 50 MG TAB PO SCH (17:27)
[2016-10-22 21:01] LABS: Glucose,Whole Blood 120 mg/dL (75-99)
[2016-10-23] MEDS: ONDANSETRON 4 MG/2 ML VIAL IVP PRN ×2 (03:39→11:15)
--- NOTE | 2016-10-23 07:46 | FL ---
EXAMINATION TYPE: FL ERCP DATE OF EXAM: 10/22/2016 CLINICAL HISTORY: Jaundice TECHNIQUE: Fluoroscopy. COMPARISON: CT abdomen from yesterday FINDINGS: Fluoroscopic guidance was provided during ERCP procedure performed by Dr. Hansen. A total o f 1 minute 45 seconds of fluoroscopic time was utilized during the procedure and one spot image is ac quired. Single image acquired shows opacification of extrahepatic biliary system without suspicious d ilatation or focal defect. Please refer to procedure note for further details as I was not present no r performed procedure. IMPRESSION: As Above.
[2016-10-23 08:12] LABS: Glucose,Whole Blood 198 mg/dL (75-99)
[2016-10-23 08:14] LABS: CH 33.4; CHCM 32.9; HCT 34.1 % (34.0-46.0); HDW 2.29; HGB 11.2 gm/dL (11.4-16.0); MCH 33.6 pg (25.0-35.0); MCHC 32.8 g/dL (31.0-37.0); MCV 102.4 fL (80.0-100.0); Macrocytosis Slight; Mean Platelet Volume 11.6; RBC 3.33 m/uL (3.80-5.40); RDW 14.3 % (11.5-15.5)
[2016-10-23] MEDS: INSULIN LISPRO (humaLOG) 300 UNIT/3 ML VIAL SQ SCH ×7 (08:18→21:52)
[2016-10-23] MEDS: LEVOFLOXACIN 250MG-D5W PMX 250 MG in DEXTROSE/WATER 1 50ML.BAG IVPB SCH (08:19)
[2016-10-23] MEDS: ASPIRIN 81 MG CHEW PO SCH (08:24)
[2016-10-23] MEDS: INSULIN GLARGINE 100 UNIT/ML 10 ML VIAL SQ SCH ×2 (08:24→21:52)
[2016-10-23] MEDS: LOSARTAN 50 MG TAB PO SCH (08:24)
[2016-10-23] MEDS: ATENOLOL 25 MG TAB PO SCH ×2 (08:24→20:46)
[2016-10-23 08:27] LABS: INR 1.3 (<1.2); Partial Thromboplastin Time 23.8 sec (22.0-30.0); Prothrombin Time 12.9 sec (9.0-12.0)
[2016-10-23 09:18] LABS: Calcium 8.2 mg/dL (8.4-10.2); Potassium 4.3 mmol/L (3.5-5.1); Total Bilirubin 6.4 mg/dL (0.2-1.3); Total Protein 6.2 g/dL (6.3-8.2)
--- NOTE | 2016-10-23 09:24 | P.PN ---
Subjective Principal diagnosis: 61-year-old female seen examined this morning in rounds with Dr. Baron. The patient originally presented to her primary care office on 10/21/2016 with a chief complaint of jaundice and 3 weeks of nausea and vomiting and it was recommended the patient come to the hospital for evaluation. GI service was consulted. The patient underwent an ERCP on 10/22/2016 which reviewed a normal cholangiogram with no evidence of retained common bile duct stone. GI recommends to follow her liver enzymes in the patient may need a liver biopsy in the future. The patient states she is not feeling well this morning. The patient appears to be more jaundiced today. She continues to complain of nausea and vomiting and has been dry heaving this morning. She denies any shortness of breath or chest pain. Her vital signs have been stable and she remains afebrile. Objective - Vital Signs Vital signs: Vital Signs Temp 97.4 F L 10/23/16 07:00 Pulse 66 10/23/16 07:00 Resp 18 10/23/16 07:00 BP 123/64 10/23/16 07:00 Pulse Ox 93 L 10/23/16 07:00 Intake & Output 10/22/16 10/23/16 10/23/16 18:59 06:59 18:59 Intake Total 200 500 Output Total 400 Balance 200 100 Weight 107.501 kg Intake: IV 200 Oral 500 Output: Emesis 400 Other: Voiding Method Bedside Commode Toilet # Voids 1 2 1 # Emeses 1 - Exam GENERAL: Jaundiced. Alert and oriented. Appears in no acute distress. Pleasant. RESPIRATORY: Lungs clear bilaterally, diminished at bases No use of accessory muscles. Patient maintaining oxygen saturation greater than 92%. CARDIOVASCULAR: S1 and S2 noted. No murmurs auscultated. No JVD noted. EXTREMITIES: No edema noted. Palpable pedal pulses +2. ABDOMEN: Obese, pain and tenderness noted upon palpation of right upper quadrant. Normal active bowel sounds auscultated 4 quadrants. - Labs CBC & Chem 7: 10/23/16 07:59 10/21/16 15:40 Labs: Abnormal Lab Results - Last 24 Hours (Table) 10/22/16 10/22/16 10/22/16 Range/Units 11:58 17:15 20:55 RBC (3.80-5.40) m/uL Hgb (11.4-16.0) gm/dL MCV (80.0-100.0) fL Plt Count (150-450) k/uL PT (9.0-12.0) sec INR (<1.2) POC Glucose (mg/dL) 110 H 125 H 120 H (75-99) mg/dL 10/23/16 10/23/16 10/23/16 Range/Units 07:59 07:59 08:01 RBC 3.33 L (3.80-5.40) m/uL Hgb 11.2 L (11.4-16.0) gm/dL MCV 102.4 H (80.0-100.0) fL Plt Count 145 L (150-450) k/uL PT 12.9 H (9.0-12.0) sec INR 1.3 H (<1.2) POC Glucose (mg/dL) 198 H (75-99) mg/dL Assessment and Plan Plan: ASSESSMENT: 1. Abdominal pain, present on admission, ERCP ruled out gallstones, patient may need liver biopsy in the future 2. Jaundice, present on admission, related to elevated LFTs 3. Elevated LFTs, due to possible liver cirrhosis, trending downward 4. History of essential hypertension 5. History of diabetes mellitus, type II, hemoglobin A1c 7.0 6. Urinary tract infection, present on admission PLAN: -GI on consult. Appreciate recommendations and input. -Continue to monitor LFTs. Trending downward -Continue Zofran for nausea. Will add PO Compazine per Dr. Baron -Creatinine slightly increased this morning. Will increase IV fluids to 125cc/ hr -Continue levaquin for UTI -Monitor labs -Monitor capillary blood glucose and address as indicated -Monitor vital signs and address as appropriate -GI prophylaxis: Patient on Protonix 40 mg daily -DVT prophylaxis: heparin 5000 units q 12 hours The above impression and plan of care have been discussed and directed by signing physician. Faith Peña, nurse practitioner, acting as scribe for signing physician.
[2016-10-23] MEDS: 0.9% NACL WITH KCL 20 MEQ/L 1,000 ML IV SCH ×5 (09:32→21:52)
[2016-10-23] MEDS: PROCHLORPERAZINE 10 MG TAB PO PRN ×2 (09:33→18:11)
[2016-10-23] MEDS: HYDROCHLOROTHIAZIDE 25 MG TAB PO SCH (09:33)
--- NOTE | 2016-10-23 10:43 | P.PN ---
Subjective Principal diagnosis: Jaundice 61-year-old female admitted with 2 month history of nausea vomiting right-sided abdominal pain new-onset of jaundice and elevated liver enzymes. CT reported gallstones. She underwent ERCP yesterday with no evidence of filling defect. Total bilirubin slightly improved to 6 today. Hepatitis screen negative. Additional serologic workup for chronic liver disease still in process. 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 Presently still reporting nausea and right -sided discomfort. Tolerating small amounts of clear liquids. Afebrile. Objective - Vital Signs Vital signs: Vital Signs Temp 97.4 F L 10/23/16 07:00 Pulse 66 10/23/16 07:00 Resp 18 10/23/16 07:00 BP 123/64 10/23/16 07:00 Pulse Ox 93 L 10/23/16 07:00 Intake & Output 10/22/16 10/23/16 10/23/16 18:59 06:59 18:59 Intake Total 200 500 Output Total 400 Balance 200 100 Weight 107.501 kg Intake: IV 200 Oral 500 Output: Emesis 400 Other: Voiding Method Bedside Commode Toilet # Voids 1 2 1 # Emeses 1 - Exam General appearance: The patient is alert, oriented, in no acute distress. Jaundice. HET: Head is normocephalic and atraumatic. Pupils are equal and reactive. Sclerae icterus. Oropharynx is clear without lesions. Neck: Supple without lymphadenopathy. Trachea midline. Heart: S1 S2. Regular rate and rhythm. Lungs: No crackles or wheezes are heard. Abdomen: Soft, tenderness to the right upper quadrant, nondistended with bowel sounds. No peritoneal signs. No palpable organomegaly or masses. Extremities: Normal skin color and turgor. No cyanosis, rash, ulceration, clubbing, or edema. Radial and pedal pulses are 2/4 bilaterally. Neurological: No focal deficits. Strength and sensation are grossly intact. - Labs CBC & Chem 7: 10/23/16 07:59 10/23/16 07:59 Labs: Abnormal Lab Results - Last 24 Hours (Table) 10/22/16 10/22/16 10/22/16 Range/Units 11:58 17:15 20:55 RBC (3.80-5.40) m/uL Hgb (11.4-16.0) gm/dL MCV (80.0-100.0) fL Plt Count (150-450) k/uL PT (9.0-12.0) sec INR (<1.2) BUN (7-17) mg/dL Creatinine (0.52-1.04) mg/dL Glucose (74-99) mg/dL POC Glucose (mg/dL) 110 H 125 H 120 H (75-99) mg/dL Calcium (8.4-10.2) mg/dL Total Bilirubin (0.2-1.3) mg/dL AST (14-36) U/L ALT (9-52) U/L Alkaline Phosphatase (38-126) U/L Total Protein (6.3-8.2) g/dL Albumin (3.5-5.0) g/dL 10/23/16 10/23/16 10/23/16 Range/Units 07:59 07:59 07:59 RBC 3.33 L (3.80-5.40) m/uL Hgb 11.2 L (11.4-16.0) gm/dL MCV 102.4 H (80.0-100.0) fL Plt Count 145 L (150-450) k/uL PT 12.9 H (9.0-12.0) sec INR 1.3 H (<1.2) BUN 23 H (7-17) mg/dL Creatinine 1.16 H (0.52-1.04) mg/dL Glucose 218 H (74-99) mg/dL POC Glucose (mg/dL) (75-99) mg/dL Calcium 8.2 L (8.4-10.2) mg/dL Total Bilirubin 6.4 H (0.2-1.3) mg/dL AST 62 H (14-36) U/L ALT 67 H (9-52) U/L Alkaline Phosphatase 422 H (38-126) U/L Total Protein 6.2 L (6.3-8.2) g/dL Albumin 3.1 L (3.5-5.0) g/dL 10/23/16 Range/Units 08:01 RBC (3.80-5.40) m/uL Hgb (11.4-16.0) gm/dL MCV (80.0-100.0) fL Plt Count (150-450) k/uL PT (9.0-12.0) sec INR (<1.2) BUN (7-17) mg/dL Creatinine (0.52-1.04) mg/dL Glucose (74-99) mg/dL POC Glucose (mg/dL) 198 H (75-99) mg/dL Calcium (8.4-10.2) mg/dL Total Bilirubin (0.2-1.3) mg/dL AST (14-36) U/L ALT (9-52) U/L Alkaline Phosphatase (38-126) U/L Total Protein (6.3-8.2) g/dL Albumin (3.5-5.0) g/dL Assessment and Plan (1) Jaundice Narrative/Plan: Cholestatic jaundice. Status post ERCP with no evidence of filling defect which raises the possibility of underlying chronic liver disease autoimmune or infiltrative liver disease. Reported history of uveitis diagnosed more than 20 years ago with no further workup and familial history of lung sarcoidosis. Status: Acute (2) Cholelithiasis Status: Acute (3) Cirrhosis of liver Narrative/Plan: Possible cirrhosis of the liver per CT imaging Status: Acute Plan: 1. Recommend liver biopsy however patient received a dose of aspirin this morning therefore patient needs to be off of NSAIDs aspirin and blood thinners for 7 days. We'll schedule outpatient liver biopsy for Wednesday, November 03. 2. Continue supportive measures. Await additional results of serologic workup for chronic liver disease. We'll follow closely with you. Repeat liver chemistries PT/INR in the a.m. Assessment and plan a care discussed with Dr. Chahal
[2016-10-23 12:07] LABS: Glucose,Whole Blood 250 mg/dL (75-99)
[2016-10-23 13:39] LABS: % Iron Saturation 83.7 % (20-50)
[2016-10-23 16:56] LABS: Glucose,Whole Blood 51 mg/dL (75-99)
[2016-10-23 17:09] LABS: Glucose,Whole Blood 54 mg/dL (75-99)
[2016-10-23 17:27] LABS: Glucose,Whole Blood 80 mg/dL (75-99)
[2016-10-23] MEDS: HEPARIN SODIUM,PORCINE 5,000 UNIT/ML 1 ML VIAL SQ SCH (20:46)
[2016-10-23 21:02] LABS: Glucose,Whole Blood 198 mg/dL (75-99)
[2016-10-24 07:43] LABS: Glucose,Whole Blood 143 mg/dL (75-99)
[2016-10-24] MEDS: INSULIN GLARGINE 100 UNIT/ML 10 ML VIAL SQ SCH (08:27)
[2016-10-24] MEDS: 0.9% NACL WITH KCL 20 MEQ/L 1,000 ML IV SCH (08:28)
[2016-10-24] MEDS: INSULIN LISPRO (humaLOG) 300 UNIT/3 ML VIAL SQ SCH ×4 (08:28→13:08)
[2016-10-24] MEDS: ATENOLOL 25 MG TAB PO SCH (08:28)
[2016-10-24] MEDS: HEPARIN SODIUM,PORCINE 5,000 UNIT/ML 1 ML VIAL SQ SCH (08:28)
[2016-10-24] MEDS: LEVOFLOXACIN 250MG-D5W PMX 250 MG in DEXTROSE/WATER 1 50ML.BAG IVPB SCH (08:28)
[2016-10-24] MEDS: HYDROCHLOROTHIAZIDE 25 MG TAB PO SCH (08:29)
[2016-10-24] MEDS: LOSARTAN 50 MG TAB PO SCH (08:29)
[2016-10-24] MEDS: ONDANSETRON 4 MG/2 ML VIAL IVP PRN (11:54)
[2016-10-24 12:31] LABS: Glucose,Whole Blood 239 mg/dL (75-99)
[2016-10-24 14:09] VITALS: BP 128/60; PULSE 77; RESP 18; TEMP 98.7
--- NOTE | 2016-10-24 14:56 | PN ---
PROGRESS NOTE DATE OF SERVICE: 10/24/2016 The patient is a 51-year-old pleasant white female admitted to the hospital with abdominal pain, elevated LFTs and jaundice for the last few days duration. Upon initial presentation, she had a CT of the abdomen done that showed evidence of gallstones and she had an ERCP by Dr. Hansen three days ago that did not show any evidence of biliary ductal dilation or biliary stricture or any filling defects. She continued to have worsening bilirubin up to 7 with elevated serum transaminases. Hepatitis serology so far has been negative. Upon review of her records it appears that she has been having elevated LFTs since June of this year and since then has been having some vague right upper quadrant abdominal pain associated with nausea and vomiting. No recent new medications that she recalls except she was started on metformin by Dr. Ram, her slot operations manager. She denies any recent travel history. No fevers, chills or night sweats. She lost about 18 pounds in the last 6 months duration. Her sister was diagnosed with lung sarcoidosis. She does have diabetes mellitus for close to 30 years. Supposed to be. PHYSICAL EXAMINATION: She appears comfortable, in no apparent distress. VITAL SIGNS: Stable. Blood pressure is 107/53, pulse rate 58, temperature 98. HEENT: Unremarkable. Conjunctivae pink. Sclerae anicteric. Oral cavity, no lesions. NECK: No JVD or lymph node enlargement. CHEST: Clear to auscultation. HEART: Regular rate and rhythm. ABDOMEN: Soft.. She was obese. Bowl sounds are positive. No organomegaly. EXTREMITIES: No pedal edema. SKIN: No rashes. NEURO: She is alert and oriented x3. No focal deficits. LAB: Done yesterday: AST is 62, ALT 67, alkaline phosphatase 422, T bili 6.4. Serum iron 144, TIBC 172, iron saturation 93%, ferritin is 1093. Hepatitis serology for A, B, and C negative. Alpha fetoprotein is normal. ROXANN is negative. Repeat labs from this morning pending. IMPRESSION: This is a lady who presented with mild elevation in serum transaminase but elevated alkaline phosphatase and T bilirubin and the picture is consistent with intrahepatic cholestasis. Recent ERCP was negative. Hepatitis serology for A, B, and C are negative. ROXANN is negative. The rest of the workup is still pending. Serum ferritin is elevated most likely because of acute phase reactant. At this time most likely dealing with infiltrative liver disease such sarcoidosis or amyloidosis, lymphoma, etc and also primary biliary cirrhosis needs to be considered. RECOMMENDATIONS: 1. Await the rest of the workup. 2. We will schedule her for a liver biopsy but because the patient has been on aspirin this has been postponed to this coming Wednesday. 3. For now we will continue to follow her labs closely. The plan was discussed with the patient and she is agreeable to it. MMODL / IJN: [id number] /
--- NOTE | 2016-10-24 20:42 | DS ---
DISCHARGE SUMMARY HOSPITAL COURSE: This is a 61-year-old male female who comes in the hospital with losing a significant amount of weight over the last few months. The patient has a history of diabetes mellitus. The patient has been having intractable episodes of nausea, vomiting. The patient comes to the hospital, was noted to have elevated transaminases with alkaline phosphatase. The patient underwent an ERCP. However, there were no significant lesions that were noted. Thereafter, due to patient's symptomatology, a liver biopsy was recommended. The patient was on aspirin, hence was held off for further date on an outpatient basis. Today, patient was seen in cross coverage for Dr. Baron. The patient is concerned about her glucose levels, however, is well educated in regards to changing her basal insulin. The patient did have some immunological workup which so far has been negative. DISCHARGE DIAGNOSES: 1. Intractable nausea, vomiting, which is improved, he is tolerating some liquids. 2. Diabetes mellitus type 2. Labile. 3. Acute hepatitis of unknown etiology. Liver biopsy needs to be done. There is a ferritin elevation. Differential diagnosis including PBC with significant elevation in ferritin. 4. Other infiltrative disorders need to be evaluated. The patient's family member does have sarcoidosis. Hepatic sarcoid is to be evaluated. However, it is rare. The patient was anxious and stated she would like to diagnose. I did discuss at length regarding the timing of the biopsy being deferred according to the damage adjuster note. I did discuss once the biopsy is done it would take almost 7 days prior to obtaining an answer and thereafter needing treatment depending on underlying condition. The patient verbalized understanding of this and we did question the need for home care as well. Patient stated that she would have her sister stay with her and verbalized to go home. PHYSICAL EXAM: On the day of discharge: ABDOMEN: Soft, nontender. No organomegaly. Heart S1, S2 heard. No murmurs appreciated. No real change in her home medications except for metformin which was discontinued. also needs to be an additional differential diagnosis. The patient is discharged home. Recommend followup with Gastroenterology and Dr. Baron. If the patient's symptoms worsen, was recommended to come back to the hospital. MMODL / IJN: [id number] /
== END 2016-10-24 16:26 | disposition home or self-care (01) | DRG 392 ==
LOC: EC 14:24 → 4MS4W 15:40
PROVIDERS: ADMIT Family Medicine; ATTEND Family Medicine
PROC: 0FJB8ZZ Inspection of Hepatobiliary Duct, Via Natural or Artificial Opening Endoscopic (ICD-10-PCS; principal; 2016-10-21)
PROC: BF10YZZ Fluoroscopy of Bile Ducts using Other Contrast (ICD-10-PCS; 2016-10-21)
DX: R11.2 Nausea with vomiting, unspecified (principal); E11.610 Type 2 diabetes mellitus with diabetic neuropathic arthropathy; N39.0 Urinary tract infection, site not specified; R17 Unspecified jaundice; I10 Essential (primary) hypertension; L29.9 Pruritus, unspecified; E86.0 Dehydration; R62.7 Adult failure to thrive; R63.4 Abnormal weight loss; R74.0 Nonspecific elevation of levels of transaminase and lactic acid dehydrogenase [LDH]; Z87.2 Personal history of diseases of the skin and subcutaneous tissue; Z98.49 Cataract extraction status, unspecified eye; Z90.710 Acquired absence of both cervix and uterus; Z87.442 Personal history of urinary calculi; Z79.899 Other long term (current) drug therapy; Z79.82 Long term (current) use of aspirin; Z79.4 Long term (current) use of insulin; Z80.0 Family history of malignant neoplasm of digestive organs; Z88.0 Allergy status to penicillin
CPT/HCPCS: 36415; 43260; 74330; 80053; 80074; 81001; 82103; 82105; 82150; 82390; 82728; 83036; 83516; 83540; 83550; 83690; 84165; 85025; 85027; 85610; 85730; 86038; 96361; 96374; 99285

== ENCOUNTER → 2016-10-21 | Outpatient (CLI) | payer BC ==
--- NOTE | 2016-10-21 13:49 | CT ---
EXAMINATION TYPE: CT abdomen wo con DATE OF EXAM: 10/21/2016 HISTORY: Jaundice with vomiting since July 2016 CT DLP: 810 mGycm. Automated Exposure Control for Dose Reduction was Utilized. TECHNIQUE: CT scan of the abdomen is performed without oral or IV contrast. COMPARISON: NONE FINDINGS: Within the limitations of a non-contrast study, the following observations are made. LUNG BASES: No significant abnormality is appreciated. LIVER/GB: Liver is small in size and lobulated in contour suspicious for underlying cirrhosis. There is dependent 6 mm density in gallbladder on axial image 28 felt to reflect small stone. There is gloria tional small stones or sludge in gallbladder seen best coronal image 35. PANCREAS: No significant abnormality is seen. SPLEEN: Spleen is not enlarged. ADRENALS: Slight low dense thickening to left adrenal gland is felt to reflect benign hyperplasia, cl inical correlation advised. KIDNEYS: No renal stones or hydronephrosis is evident bilaterally. BOWEL: No significant abnormality is seen. LYMPH NODES: No greater than 1cm abdominal lymph nodes are appreciated. OSSEOUS STRUCTURES: Mild multilevel spurring in visualized thoracic spine is present. OTHER: No significant additional abnormality is seen. IMPRESSION: Slightly small lobulated liver suspicious for underlying cirrhosis. Clinical and liver la b correlation advised. Gallstones without CT evidence for acute cholecystitis. No ascites is present. No bowel obstruction is seen.
[2016-10-21 13:52] LABS: CH 32.3; CHCM 32.6; HCT 33.3 % (34.0-46.0); HDW 2.26; HGB 11.3 gm/dL (11.4-16.0); Large Platelets Flag Moderate; MCH 33.9 pg (25.0-35.0); MCV 99.6 fL (80.0-100.0); Mean Platelet Volume 11.7; RBC 3.34 m/uL (3.80-5.40); RDW 13.9 % (11.5-15.5); WBC 9.8 k/uL (3.8-10.6)
[2016-10-21 14:02] LABS: ALT 101 U/L (9-52); AST 107 U/L (14-36); Alkaline Phosphatase 500 U/L (38-126); Amylase <30 U/L (30-110); Anion Gap 11 mmol/L; Bilirubin, Delta 3.3 mg/dL (0.0-0.2); Blood Urea Nitrogen 18 mg/dL (7-17); Calcium 8.5 mg/dL (8.4-10.2); Carbon Dioxide 28 mmol/L (22-30); Chloride 98 mmol/L (98-107); Glucose 220 mg/dL (74-99); Non-African American GFR(MDRD) >60 (>60 ml/min/1.73 sqM); Potassium 3.9 mmol/L (3.5-5.1); Sodium 137 mmol/L (137-145); Total Bilirubin 7.6 mg/dL (0.2-1.3); Total Protein 6.4 g/dL (6.3-8.2)
== END | disposition home or self-care (01) ==
LOC: RADCTMAIN 13:03
PROVIDERS: ATTEND Family Medicine
DX: K80.20 Calculus of gallbladder without cholecystitis without obstruction (principal); K76.89 Other specified diseases of liver
CPT/HCPCS: 74150; 80053; 82150; 82248; 83690; 85027

== ENCOUNTER → 2016-11-03 | Day surgery (SDC) | payer BC ==
[~2016-11-03] MED LIST: ALPRAZolam 0.5 MG TAB PO STA; HYDROmorphone 1 MG/ML 1 ML SYRINGE IVP PRN
[2016-11-03 08:33] LABS: Large Platelets Flag Slight; Mean Platelet Volume 11.1
[2016-11-03 08:37] LABS: INR 1.2 (<1.2); Prothrombin Time 12.4 sec (9.0-12.0)
[2016-11-03 08:38] VITALS: TEMP 98.1
[2016-11-03 14:13] VITALS: BP 145/69; PULSE 94; RESP 18
--- NOTE | 2016-11-03 14:18 | US ---
EXAMINATION TYPE: US biopsy liver DATE OF EXAM: 11/03/2016 HISTORY: jaundice. PROCEDURE: Maximal barrier technique was utilized. After informed consent, the skin overlying a suit able path to the right lobe of liver was localized using ultrasound, the skin was prepped and draped . Ultrasound was utilized with sterile technique. Lidocaine was used for local anesthesia. A skin ni ck made with a scalpel. Under direct ultrasound guidance, an 18-gauge needle was advanced into the r ight lobe of the liver and core biopsy obtained. Hemostasis was achieved. There was no immediate co mplication and patient remained in stable condition. Specimen submitted in formalin to Pathology. IMPRESSION: STATUS POST ULTRASOUND GUIDED CORE BIOPSY OF THE LEFT LOBE OF THE LIVER, PATHOLOGY GELACIO Franklin PERFORMED BY THE UNDERSIGNED.
== END ==
LOC: RADPROMAIN 07:42
DX: K74.60 Unspecified cirrhosis of liver (principal); J63.4 Siderosis; K83.1 Obstruction of bile duct
CPT/HCPCS: 85049; 85610; 88313; 88307; 96374; 36415; 47000; 76942; J1170

== ENCOUNTER → 2016-11-09 | Outpatient (CLI) | payer BC ==
[2016-11-09 13:31] LABS: ALT 81 U/L (9-52); AST 94 U/L (14-36); Alkaline Phosphatase 452 U/L (38-126); Anion Gap 8 mmol/L; Bilirubin, Delta 2.3 mg/dL (0.0-0.2); Blood Urea Nitrogen 16 mg/dL (7-17); Carbon Dioxide 25 mmol/L (22-30); Chloride 100 mmol/L (98-107); Glucose 294 mg/dL (74-99); Non-African American GFR(MDRD) >60 (>60 ml/min/1.73 sqM); Potassium 4.4 mmol/L (3.5-5.1); Sodium 133 mmol/L (137-145); Total Protein 6.3 g/dL (6.3-8.2)
[2016-11-09 13:47] LABS: INR 1.2 (<1.2); Prothrombin Time 12.2 sec (9.0-12.0)
[2016-11-09 13:49] LABS: Basophils % (A) 1 %; CH 33.2; CHCM 32.8; Eosinophils # (A) 0.1 k/uL (0-0.7); Eosinophils % (A) 1 %; HCT 35.7 % (34.0-46.0); HDW 2.24; HGB 12.1 gm/dL (11.4-16.0); Large Platelets Flag Moderate; Luc # (Auto) 0.09; Luc % (Auto) 1; Lymphocytes # (A) 0.9 k/uL (1.0-4.8); Lymphocytes % (A) 13 %; MCH 34.2 pg (25.0-35.0); MCHC 33.7 g/dL (31.0-37.0); MCV 101.5 fL (80.0-100.0); Macrocytosis Slight; Mean Platelet Volume 12.1; Monocytes # (A) 0.3 k/uL (0-1.0); Monocytes % (A) 5 %; Neutrophils # (A) 5.3 k/uL (1.3-7.7); Neutrophils % (A) 79 %; RBC 3.52 m/uL (3.80-5.40); RDW 13.5 % (11.5-15.5); WBC 6.7 k/uL (3.8-10.6); WBC (Perox) 6.85
[2016-11-09 14:42] LABS: Polychromasia Present
== END | disposition home or self-care (01) ==
LOC: LABWHC1 11:34
PROVIDERS: ATTEND Physician Assistant
DX: K74.60 Unspecified cirrhosis of liver (principal)
CPT/HCPCS: 36415; 80053; 82105; 82248; 85025; 85610

== ENCOUNTER → 2016-11-25 | Outpatient (CLI) | payer BC ==
[2016-11-25 17:03] LABS: Basophils % (A) 0 %; CH 32.9; CHCM 31.2; Eosinophils # (A) 0.1 k/uL (0-0.7); Eosinophils % (A) 1 %; HCT 40.2 % (34.0-46.0); HDW 2.05; HGB 12.7 gm/dL (11.4-16.0); Large Platelets Flag Slight; Luc # (Auto) 0.16; Luc % (Auto) 2; Lymphocytes # (A) 0.9 k/uL (1.0-4.8); Lymphocytes % (A) 11 %; MCH 33.4 pg (25.0-35.0); MCHC 31.5 g/dL (31.0-37.0); Macrocytosis Moderate; Mean Platelet Volume 10.9; Monocytes # (A) 0.4 k/uL (0-1.0); Monocytes % (A) 5 %; Neutrophils # (A) 6.4 k/uL (1.3-7.7); Neutrophils % (A) 81 %; RBC 3.79 m/uL (3.80-5.40); RDW 13.1 % (11.5-15.5); WBC 7.9 k/uL (3.8-10.6); WBC (Perox) 8.07
[2016-11-26 01:32] LABS: Iron Saturation 77.07 (12.00-45.00)
== END | disposition home or self-care (01) ==
LOC: LABWHC1 16:07
PROVIDERS: ATTEND Internal Medicine Gastroenterology
DX: E83.110 Hereditary hemochromatosis (principal)
CPT/HCPCS: 36415; 82728; 83540; 83550; 85025

== ENCOUNTER 2016-12-04 07:18 | Day surgery (SDC) | payer BC ==
[2016-12-01 17:02] VITALS: BMI 34.9
[~2016-12-04 07:18] MED LIST changes: -ALPRAZolam 0.5 MG TAB PO STA; -HYDROmorphone 1 MG/ML 1 ML SYRINGE IVP PRN; +LACTATED RINGERS 1,000 ML IV SCH
[2016-12-04 07:32] VITALS: TEMP 98
[2016-12-04] MEDS ORDERED: LACTATED RINGERS 1,000 ML IV ONE (07:32)
[2016-12-04] MEDS ORDERED: LIDOCAINE 1% 20 ML VIAL (10MG/ML) FOR IV START INTRADERMA ONE (07:32)
[2016-12-04 07:44] LABS: Glucose,Whole Blood 152 mg/dL (75-99)
[2016-12-04] MEDS ORDERED: LIDOCAINE 1% INJ 10MG/ML (20 ML MDV) ONE (08:04)
[2016-12-04] MEDS ORDERED: PROPOFOL 10 MG/ML 20 ML VIAL IV ONE (08:04)
--- NOTE | 2016-12-04 08:15 | P.PCN ---
Date of Procedure: 12/04/16 Procedure(s) Performed: BRIEF HISTORY: Patient is a 61-year-old, pleasant, female, scheduled for an upper endoscopy as part of evaluation of chronic persistent nausea vomiting for the last 6 months duration. She has these episodes once or twice a week. He has associated epigastric discomfort. Has been on PPI with no relief. She was recently diagnosed with hereditary hemochromatosis/cirrhosis of the liver about 2 months ago. She is hence scheduled for an upper endoscopy to evaluate further PROCEDURE PERFORMED: Esophagogastroduodenoscopy with biopsy. PREOPERATIVE DIAGNOSIS: Chronic persistent nausea vomiting of 6 months duration , cirrhosis of the liver screening for esophageal varices. IV sedation per anesthesia. PROCEDURE: After informed consent was obtained, the patient was brought into the endoscopy unit. IV sedation was administered by Anesthesia under continuous monitoring. Initially the Olympus GIF-140 video endoscope was inserted into the mouth. Esophagus intubated without any difficulty. It was gradually advanced into the stomach and duodenum and carefully examined. The bulb and the second part of the duodenum appeared normal. The scope at this time was withdrawn to the stomach, adequately insufflated with air, and upon careful examination, mucosa of the antrum had scattered erosions seen and biopsies were done from this area. The body, cardia and the fundus had mild changes of portal hypertensive gastropathy The scope was then withdrawn into the esophagus. The GE junction was located at 39 cm from the incisors. There were small esophageal varices seen. The mucosa of esophagus appeared normal. There were no erosions or ulcerations seen and the patient tolerated the procedure well. IMPRESSION: 1. Small esophageal varices but no evidence of gastric varices. 2. Mild portal hypertensive gastropathy 3. Scattered erosions in the antrum. RECOMMENDATIONS: The findings of this examination were discussed with the patient as well as a family. She was advised to follow with the biopsy results. She will continue Zofran as needed. Given the presence of small esophageal varices, I recommended her to have a repeat screening colonoscopy in 3 years.
[2016-12-04 08:57] VITALS: BP 128/63; PULSE 85; RESP 18
== END 2016-12-04 09:09 | disposition home or self-care (01) ==
LOC: ORWHC2ENDO 07:18
PROVIDERS: ATTEND Internal Medicine Gastroenterology
DX: K29.50 Unspecified chronic gastritis without bleeding (principal); B96.81 Helicobacter pylori [H. pylori] as the cause of diseases classified elsewhere; I85.00 Esophageal varices without bleeding; K74.60 Unspecified cirrhosis of liver; K76.6 Portal hypertension; K31.89 Other diseases of stomach and duodenum; E83.119 Hemochromatosis, unspecified; K25.9 Gastric ulcer, unspecified as acute or chronic, without hemorrhage or perforation; I10 Essential (primary) hypertension; E11.9 Type 2 diabetes mellitus without complications; Z79.4 Long term (current) use of insulin; Z87.442 Personal history of urinary calculi; Z79.82 Long term (current) use of aspirin; Z79.899 Other long term (current) drug therapy; Z88.0 Allergy status to penicillin
CPT/HCPCS: 88305; 88342; 43239; J2001; J2704

== ENCOUNTER 2017-04-16 16:54 | Emergency (ER) | payer BC ==
[2017-04-16] MEDS ORDERED: SODIUM CHLORIDE 0.9% 1,000 ML IV STA (17:33)
--- NOTE | 2017-04-16 17:35 | ED ---
General Adult HPI - General Chief complaint: Weakness Stated complaint: SOB, Weakness Time Seen by Provider: 04/16/17 17:12 Source: patient, family, RN notes reviewed, old records reviewed Mode of arrival: wheelchair Limitations: no limitations - History of Present Illness Initial comments: 61-year-old female history of hemochromatosis currently in liver failure presents with chief complaint of generalized weakness. Patient also reports some moderate dyspnea. Denies current cough. Denies current fever, states she did have a fever several weeks ago. Patient does report some constipation, she has not been moving her bowels normally. Denies any hematochezia. Denies nausea or vomiting. Denies chest pain. Patient is currently on the liver transplant list at [facility]. She was encouraged by her transplant physician to present to the emergency department for evaluation. Denies focal weakness. Denies headache or vision changes. - Related Data Home Medications Medication Instructions Recorded Confirmed Insulin Aspart [NovoLOG Flexpen] See Protocol SQ AC-TID 01/14/15 04/16/17 Aspirin 81 mg PO DAILY 09/09/15 04/16/17 Insulin Glargine,Hum.rec.anlog 30 unit SQ BID 10/28/16 04/16/17 [Lantus Solostar] Ondansetron [Zofran] 4 mg PO Q6HR PRN 11/03/16 04/16/17 Furosemide [Lasix] 80 mg PO DAILY 04/16/17 04/16/17 Omeprazole 20 mg PO DAILY 04/16/17 04/16/17 Spironolactone 100 mg PO DAILY 04/16/17 04/16/17 Allergies Allergy/AdvReac Type Severity Reaction Status Date / Time Penicillins Allergy Unknown Verified 04/16/17 17:35 Childhood Review of Systems ROS Statement: Those systems with pertinent positive or pertinent negative responses have been documented in the HPI. ROS Other: All systems not noted in ROS Statement are negative. Past Medical History Past Medical History: Blood Disorder, Diabetes Mellitus, Hypertension, Skin Disorder Additional Past Medical History / Comment(s): Eczema, hx. kidney stone, neuropathy dewey feet and hands, occas lightheaded and dizziness, dewey charcot feet.uti-ecoli 7-27-17, , jaundice, nausea and vomiting,. Hemochromatosis, liver failure History of Any Multi-Drug Resistant Organisms: None Reported Past Surgical History: Heart Catheterization, Hysterectomy, Tubal Ligation Additional Past Surgical History / Comment(s): kidney stone, dewey cataracts, ERCP Past Anesthesia/Blood Transfusion Reactions: No Reported Reaction Past Psychological History: No Psychological Hx Reported Smoking Status: Never smoker Past Alcohol Use History: None Reported Past Drug Use History: None Reported - Past Family History Mother Family Medical History: No Reported History Father Family Medical History: No Reported History Sister(s) Family Medical History: Cancer Additional Family Medical History / Comment(s): Colon General Exam Limitations: no limitations General appearance: alert, in no apparent distress Head exam: Present: atraumatic, normocephalic Eye exam: Present: normal appearance, PERRL. Absent: scleral icterus ENT exam: Present: mucous membranes dry Neck exam: Present: normal inspection. Absent: tenderness, meningismus Respiratory exam: Present: decreased breath sounds (At the lung bases). Absent : respiratory distress Cardiovascular Exam: Present: regular rate, normal rhythm GI/Abdominal exam: Present: soft, distended. Absent: tenderness Extremities exam: Present: normal inspection, normal capillary refill, pedal edema (trace) Neurological exam: Present: alert, oriented X3. Absent: motor sensory deficit Psychiatric exam: Present: normal affect, normal mood Skin exam: Present: warm, dry, intact. Absent: cyanosis, diaphoretic Course Vital Signs 04/16/17 04/16/17 17:03 19:08 Temperature 97.9 F Pulse Rate 83 82 Respiratory 18 20 Rate Blood Pressure 131/61 133/56 O2 Sat by Pulse 98 99 Oximetry EKG Findings - EKG Comments: EKG Findings:: EKG shows normal sinus rhythm, no signs of ischemia, ventricular rate 87, AK interval 146, castration 86, QTC 452 Medical Decision Making - Medical Decision Making 61-year-old female history of hemachromatosis presenting with generalized weakness. Chest x-rays obtained, negative for acute disease. Laboratory studies reveal normal white blood cell count, stable hemoglobin, INR mildly elevated 1.2, sodium 135, magnesium 1.5, normal lactic acid, glucose elevated AST and LTR within normal limits. Troponin negative, EKG nonischemic. Ammonia is pending. Patient has no signs of encephalopathy. While in the emergency department, her transplant physicians staff does contact her with a trial of 2 medications for increased ammonia including lactulose. Patient is comfortable initiating these medications today and following up as an outpatient. She will return with any worsening or changing symptoms. She is offered observation, she declined stating she would rather be discharged home. - Lab Data Result diagrams: 04/16/17 18:00 04/16/17 18:00 Lab Results 04/16/17 04/16/17 04/16/17 Range/Units 18:00 18:00 18:00 WBC 8.4 (3.8-10.6) k/uL RBC 4.01 (3.80-5.40) m/uL Hgb 12.2 (11.4-16.0) gm/dL Hct 37.8 (34.0-46.0) % MCV 94.1 (80.0-100.0) fL MCH 30.3 (25.0-35.0) pg MCHC 32.2 (31.0-37.0) g/dL RDW 13.5 (11.5-15.5) % Plt Count 142 L (150-450) k/uL Neutrophils % 81 % Lymphocytes % 10 % Monocytes % 7 % Eosinophils % 1 % Basophils % 0 % Neutrophils # 6.8 (1.3-7.7) k/uL Lymphocytes # 0.9 L (1.0-4.8) k/uL Monocytes # 0.6 (0-1.0) k/uL Eosinophils # 0.1 (0-0.7) k/uL Basophils # 0.0 (0-0.2) k/uL PT (9.0-12.0) sec INR (<1.2) APTT (22.0-30.0) sec Sodium 135 L (137-145) mmol/L Potassium 4.7 (3.5-5.1) mmol/L Chloride 94 L (98-107) mmol/L Carbon Dioxide 28 (22-30) mmol/L Anion Gap 13 mmol/L BUN 19 H (7-17) mg/dL Creatinine 0.80 (0.52-1.04) mg/dL Est GFR (MDRD) Af Amer >60 (>60 ml/min/1.73 sqM) Est GFR (MDRD) Non-Af >60 (>60 ml/min/1.73 sqM) Glucose 282 H (74-99) mg/dL Plasma Lactic Acid Gilbert (0.7-2.0) mmol/L Calcium 9.7 (8.4-10.2) mg/dL Magnesium 1.5 L (1.6-2.3) mg/dL Total Bilirubin 1.2 (0.2-1.3) mg/dL AST 24 (14-36) U/L ALT 20 (9-52) U/L Alkaline Phosphatase 114 (38-126) U/L Total Creatine Kinase 25 L (30-135) U/L CK-MB (CK-2) 0.5 (0.0-2.4) ng/mL CK-MB (CK-2) Rel Index 2.0 Troponin I <0.012 (0.000-0.034) ng/mL Total Protein 6.9 (6.3-8.2) g/dL Albumin 3.6 (3.5-5.0) g/dL 04/16/17 04/16/17 Range/Units 18:00 18:00 WBC (3.8-10.6) k/uL RBC (3.80-5.40) m/uL Hgb (11.4-16.0) gm/dL Hct (34.0-46.0) % MCV (80.0-100.0) fL MCH (25.0-35.0) pg MCHC (31.0-37.0) g/dL RDW (11.5-15.5) % Plt Count (150-450) k/uL Neutrophils % % Lymphocytes % % Monocytes % % Eosinophils % % Basophils % % Neutrophils # (1.3-7.7) k/uL Lymphocytes # (1.0-4.8) k/uL Monocytes # (0-1.0) k/uL Eosinophils # (0-0.7) k/uL Basophils # (0-0.2) k/uL PT 11.9 (9.0-12.0) sec INR 1.2 H (<1.2) APTT 24.7 (22.0-30.0) sec Sodium (137-145) mmol/L Potassium (3.5-5.1) mmol/L Chloride (98-107) mmol/L Carbon Dioxide (22-30) mmol/L Anion Gap mmol/L BUN (7-17) mg/dL Creatinine (0.52-1.04) mg/dL Est GFR (MDRD) Af Amer (>60 ml/min/1.73 sqM) Est GFR (MDRD) Non-Af (>60 ml/min/1.73 sqM) Glucose (74-99) mg/dL Plasma Lactic Acid Gilbert 2.0 (0.7-2.0) mmol/L Calcium (8.4-10.2) mg/dL Magnesium (1.6-2.3) mg/dL Total Bilirubin (0.2-1.3) mg/dL AST (14-36) U/L ALT (9-52) U/L Alkaline Phosphatase (38-126) U/L Total Creatine Kinase (30-135) U/L CK-MB (CK-2) (0.0-2.4) ng/mL CK-MB (CK-2) Rel Index Troponin I (0.000-0.034) ng/mL Total Protein (6.3-8.2) g/dL Albumin (3.5-5.0) g/dL Disposition Clinical Impression: Cirrhosis of liver, Liver failure Disposition: HOME SELF-CARE Condition: Fair Instructions: Cirrhosis (ED) Additional Instructions: Please follow up with your transplant physician, return with any worsening or changing symptoms. Referrals: Matias Baron DO [Primary Care Provider] - 1-2 days Time of Disposition: 19:30
[2017-04-16 18:17] LABS: Basophils % (A) 0 %; Eosinophils # (A) 0.1 k/uL (0-0.7); Eosinophils % (A) 1 %; HCT 37.8 % (34.0-46.0); HGB 12.2 gm/dL (11.4-16.0); Lymphocytes # (A) 0.9 k/uL (1.0-4.8); Lymphocytes % (A) 10 %; MCH 30.3 pg (25.0-35.0); MCHC 32.2 g/dL (31.0-37.0); MCV 94.1 fL (80.0-100.0); Mean Platelet Volume 8.6; Monocytes # (A) 0.6 k/uL (0-1.0); Monocytes % (A) 7 %; Neutrophils # (A) 6.8 k/uL (1.3-7.7); Neutrophils % (A) 81 %; Platelet Count 142 k/uL (150-450); RBC 4.01 m/uL (3.80-5.40); RDW 13.5 % (11.5-15.5); WBC 8.4 k/uL (3.8-10.6)
[2017-04-16 18:26] LABS: INR 1.2 (<1.2); Partial Thromboplastin Time 24.7 sec (22.0-30.0); Prothrombin Time 11.9 sec (9.0-12.0)
[2017-04-16 18:29] LABS: ALT 20 U/L (9-52); AST 24 U/L (14-36); Albumin 3.6 g/dL (3.5-5.0); Alkaline Phosphatase 114 U/L (38-126); Anion Gap 13 mmol/L; Blood Urea Nitrogen 19 mg/dL (7-17); Calcium 9.7 mg/dL (8.4-10.2); Carbon Dioxide 28 mmol/L (22-30); Chloride 94 mmol/L (98-107); Glucose 282 mg/dL (74-99); Magnesium 1.5 mg/dL (1.6-2.3); Potassium 4.7 mmol/L (3.5-5.1); Sodium 135 mmol/L (137-145); Total Bilirubin 1.2 mg/dL (0.2-1.3); Total Protein 6.9 g/dL (6.3-8.2)
--- NOTE | 2017-04-16 18:29 | XR ---
EXAMINATION: XR chest 2V DATE AND TIME: 04/16/2017 6:22 PM ORDERING PROVIDER: Syd Bello MD CLINICAL INDICATION: Weakness . Dyspnea. Fall last night. TECHNIQUE: PA and lateral COMPARISON: 09/21/2016 DESCRIPTION: The lungs are clear. The pleural spaces are negative. The cardiac silhouette is not enlarged. The mediastinal and pleural silhouettes are unremarkable. The skeletal structures are intact without focal findings. The soft tissues are unremarkable. IMPRESSION: NO ACUTE PROCESS.
[2017-04-16 18:31] LABS: Creatine Kinase 25 U/L (30-135)
[2017-04-16 18:44] LABS: Creatine Kinase MB 0.5 ng/mL (0.0-2.4); Troponin I <0.012 ng/mL (0.000-0.034)
[2017-04-16 19:16] VITALS: BP 133/56; RESP 20
[2017-04-16 20:06] VITALS: PULSE 92; TEMP 98
== END 2017-04-16 20:00 | disposition home or self-care (01) ==
LOC: EC 16:54
DX: K74.60 Unspecified cirrhosis of liver (principal); K72.90 Hepatic failure, unspecified without coma; E11.40 Type 2 diabetes mellitus with diabetic neuropathy, unspecified; I10 Essential (primary) hypertension; Z88.0 Allergy status to penicillin; Z79.4 Long term (current) use of insulin; Z79.82 Long term (current) use of aspirin; Z79.899 Other long term (current) drug therapy
CPT/HCPCS: 36415; 71046; 80053; 82140; 82550; 82553; 83605; 83735; 84484; 85025; 85610; 85730; 93005; 99285

== ENCOUNTER 2017-06-09 16:45 | Emergency (ER) | payer BC ==
[2017-06-09] MEDS ORDERED: SODIUM CHLORIDE 0.9% 500 ML IV ONE (19:15)
--- NOTE | 2017-06-09 19:37 | ED ---
General Adult HPI - General Chief complaint: Abdominal Pain Stated complaint: CONSTIPATION X 8 DAYS, HAS LIVER DISEASE Time Seen by Provider: 06/09/17 18:57 Source: patient, family Mode of arrival: wheelchair Limitations: no limitations - History of Present Illness Initial comments: 61-year-old female patient with a past medical history significant for liver disease currently awaiting transplant presents to the emergency department today for complaints of abdominal discomfort and constipation. Patient states that she has not had a bowel movement for the last 8 days. States that she does take lactulose and MiraLAX for this however it is not helping. Patient states also that she has been very fatigued and sleeping more than usual. States that she is feeling generally weak. States that she has decreased appetite but has been able to tolerate small meals and fluids. Patient denies any recent rash, fever, chills, shortness breath, chest pain, nausea, vomiting, back pain, numbness, tingling, dizziness, weakness, hematuria, dysuria, urinary urgency, urinary frequency, headache, visual changes, or any other complaints. - Related Data Home Medications Medication Instructions Recorded Confirmed Insulin Aspart [NovoLOG Flexpen] See Protocol SQ AC-TID 01/14/15 04/16/17 Aspirin 81 mg PO DAILY 09/09/15 04/16/17 Insulin Glargine,Hum.rec.anlog 30 unit SQ BID 10/28/16 04/16/17 [Lantus Solostar] Ondansetron [Zofran] 4 mg PO Q6HR PRN 11/03/16 04/16/17 Furosemide [Lasix] 80 mg PO DAILY 04/16/17 04/16/17 Omeprazole 20 mg PO DAILY 04/16/17 04/16/17 Spironolactone 100 mg PO DAILY 04/16/17 04/16/17 Allergies Allergy/AdvReac Type Severity Reaction Status Date / Time Penicillins Allergy Unknown Verified 06/09/17 17:29 Childhood Review of Systems ROS Statement: Those systems with pertinent positive or pertinent negative responses have been documented in the HPI. ROS Other: All systems not noted in ROS Statement are negative. Past Medical History Past Medical History: Blood Disorder, Diabetes Mellitus, Hypertension, Skin Disorder Additional Past Medical History / Comment(s): Eczema, hx. kidney stone, neuropathy dewey feet and hands, occas lightheaded and dizziness, dewey charcot feet.uti-ecoli 7-27-17, , jaundice, nausea and vomiting,. Hemochromatosis, liver failure History of Any Multi-Drug Resistant Organisms: None Reported Past Surgical History: Heart Catheterization, Hysterectomy, Tubal Ligation Additional Past Surgical History / Comment(s): kidney stone, dewey cataracts, ERCP Past Anesthesia/Blood Transfusion Reactions: No Reported Reaction Past Psychological History: No Psychological Hx Reported Smoking Status: Never smoker Past Alcohol Use History: None Reported Past Drug Use History: None Reported - Past Family History Mother Family Medical History: No Reported History Father Family Medical History: No Reported History Sister(s) Family Medical History: Cancer Additional Family Medical History / Comment(s): Colon General Exam Limitations: no limitations General appearance: alert, in no apparent distress, other (This is a well- developed, thin appearing adult female patient in no acute distress. Vital signs upon presentation are temperature 98.6F, pulse 82, respirations 20, blood pressure 132/60, pulse ox 98% on room air.) Eye exam: Present: normal appearance, PERRL, EOMI. Absent: scleral icterus, conjunctival injection, periorbital swelling ENT exam: Present: normal exam, normal oropharynx, mucous membranes moist Respiratory exam: Present: normal lung sounds bilaterally. Absent: respiratory distress, wheezes, rales, rhonchi, stridor Cardiovascular Exam: Present: regular rate, normal rhythm, normal heart sounds. Absent: systolic murmur, diastolic murmur, rubs, gallop, clicks GI/Abdominal exam: Present: soft, distended (Ascites), normal bowel sounds. Absent: tenderness, guarding, rebound, rigid Neurological exam: Present: alert, oriented X3, CN II-XII intact Psychiatric exam: Present: normal affect, normal mood Skin exam: Present: warm, dry, intact, normal color. Absent: rash Course Vital Signs 06/09/17 06/09/17 06/09/17 17:27 20:25 22:39 Temperature 98.6 F 98.0 F 96.7 F L Pulse Rate 82 95 92 Respiratory 20 18 16 Rate Blood Pressure 132/60 149/68 133/68 O2 Sat by Pulse 98 99 97 Oximetry Medical Decision Making - Medical Decision Making 62-year-old female patient presented to the emergency department today for complaints of generalized abdominal discomfort and constipation. Patient reported having a bowel movement for the last 8 days. Labs reviewed and showed a platelet count of 146, sodium 132, chloride 93. Blood glucose was 332. Urinalysis showed a cloudy appearance with trace protein, trace glucose, trace ketones. There is moderate leukocyte esterase, 45 white blood cells, 19 squamous epithelial cells, many bacteria, 25 hyaline casts, and many urine mucus. This was sent for culture. KUB x-ray of the abdomen was obtained and showed overall nonobstructive bowel gas pattern. I did discuss findings with the patient. She did agree to have an enema. She did receive a milk and molasses enema which did produce good results. Patient is feeling better upon reevaluation. We did discuss follow-up with her primary care physician. She is also instructed to follow-up with her liver specialist for different methods of constipation relief. She is instructed to return here immediately for any new, worsening, or concerning symptoms. She verbalizes understanding and agrees with this plan. - Lab Data Result diagrams: 06/09/17 19:40 06/09/17 19:40 Lab Results 06/09/17 06/09/17 06/09/17 Range/Units 19:40 19:40 19:40 WBC (3.8-10.6) k/uL RBC (3.80-5.40) m/uL Hgb (11.4-16.0) gm/dL Hct (34.0-46.0) % MCV (80.0-100.0) fL MCH (25.0-35.0) pg MCHC (31.0-37.0) g/dL RDW (11.5-15.5) % Plt Count (150-450) k/uL Neutrophils % % Lymphocytes % % Monocytes % % Eosinophils % % Basophils % % Neutrophils # (1.3-7.7) k/uL Lymphocytes # (1.0-4.8) k/uL Monocytes # (0-1.0) k/uL Eosinophils # (0-0.7) k/uL Basophils # (0-0.2) k/uL Sodium 132 L (137-145) mmol/L Potassium 4.2 (3.5-5.1) mmol/L Chloride 93 L (98-107) mmol/L Carbon Dioxide 24 (22-30) mmol/L Anion Gap 15 mmol/L BUN 12 (7-17) mg/dL Creatinine 0.60 (0.52-1.04) mg/dL Est GFR (CKD-EPI)AfAm >90 (>60 ml/min/1.73 sqM) Est GFR (CKD-EPI)NonAf >90 (>60 ml/min/1.73 sqM) Glucose 332 H (74-99) mg/dL POC Glucose (mg/dL) (75-99) mg/dL POC Glu Leather Grainer ID Calcium 9.2 (8.4-10.2) mg/dL Total Bilirubin 1.2 (0.2-1.3) mg/dL AST 18 (14-36) U/L ALT 19 (9-52) U/L Alkaline Phosphatase 102 (38-126) U/L Ammonia 31 H (<30) umol/L Total Creatine Kinase 24 L (30-135) U/L CK-MB (CK-2) 0.6 (0.0-2.4) ng/mL CK-MB (CK-2) Rel Index 2.5 Troponin I <0.012 (0.000-0.034) ng/mL Total Protein 6.4 (6.3-8.2) g/dL Albumin 3.6 (3.5-5.0) g/dL Amylase <30 L (30-110) U/L Lipase 51 (23-300) U/L Urine Color Urine Appearance (Clear) Urine pH (5.0-8.0) Ur Specific [place] (1.001-1.035) Urine Protein (Negative) Urine Glucose (UA) (Negative) Urine Ketones (Negative) Urine Blood (Negative) Urine Nitrite (Negative) Urine Bilirubin (Negative) Urine Urobilinogen (<2.0) mg/dL Ur Leukocyte Esterase (Negative) Urine RBC (0-5) /hpf Urine WBC (0-5) /hpf Ur Squamous Epith Cells (0-4) /hpf Urine Bacteria (None) /hpf Hyaline Casts (0-2) /lpf Urine Mucus (None) /hpf 06/09/17 06/09/17 06/09/17 Range/Units 19:40 20:37 22:22 WBC 8.2 (3.8-10.6) k/uL RBC 4.39 (3.80-5.40) m/uL Hgb 13.6 (11.4-16.0) gm/dL Hct 40.2 (34.0-46.0) % MCV 91.6 (80.0-100.0) fL MCH 30.9 (25.0-35.0) pg MCHC 33.8 (31.0-37.0) g/dL RDW 13.3 (11.5-15.5) % Plt Count 146 L (150-450) k/uL Neutrophils % 80 % Lymphocytes % 11 % Monocytes % 6 % Eosinophils % 1 % Basophils % 0 % Neutrophils # 6.5 (1.3-7.7) k/uL Lymphocytes # 0.9 L (1.0-4.8) k/uL Monocytes # 0.5 (0-1.0) k/uL Eosinophils # 0.1 (0-0.7) k/uL Basophils # 0.0 (0-0.2) k/uL Sodium (137-145) mmol/L Potassium (3.5-5.1) mmol/L Chloride (98-107) mmol/L Carbon Dioxide (22-30) mmol/L Anion Gap mmol/L BUN (7-17) mg/dL Creatinine (0.52-1.04) mg/dL Est GFR (CKD-EPI)AfAm (>60 ml/min/1.73 sqM) Est GFR (CKD-EPI)NonAf (>60 ml/min/1.73 sqM) Glucose (74-99) mg/dL POC Glucose (mg/dL) 276 H (75-99) mg/dL POC Glu Leather Grainer ID Garry Franz Calcium (8.4-10.2) mg/dL Total Bilirubin (0.2-1.3) mg/dL AST (14-36) U/L ALT (9-52) U/L Alkaline Phosphatase (38-126) U/L Ammonia (<30) umol/L Total Creatine Kinase (30-135) U/L CK-MB (CK-2) (0.0-2.4) ng/mL CK-MB (CK-2) Rel Index Troponin I (0.000-0.034) ng/mL Total Protein (6.3-8.2) g/dL Albumin (3.5-5.0) g/dL Amylase (30-110) U/L Lipase (23-300) U/L Urine Color Yellow Urine Appearance Cloudy H (Clear) Urine pH 5.5 (5.0-8.0) Ur Specific [place] 1.018 (1.001-1.035) Urine Protein Trace H (Negative) Urine Glucose (UA) Trace H (Negative) Urine Ketones Trace H (Negative) Urine Blood Negative (Negative) Urine Nitrite Negative (Negative) Urine Bilirubin Negative (Negative) Urine Urobilinogen 3.0 (<2.0) mg/dL Ur Leukocyte Esterase Moderate H (Negative) Urine RBC 2 (0-5) /hpf Urine WBC 45 H (0-5) /hpf Ur Squamous Epith Cells 19 H (0-4) /hpf Urine Bacteria Many H (None) /hpf Hyaline Casts 25 H (0-2) /lpf Urine Mucus Many H (None) /hpf - Radiology Data Radiology results: report reviewed, image reviewed Two-view x-ray of the abdomen is obtained. Exam is suboptimal secondary to patient's large body habitus. Scattered gas is seen in nondistended small bowel loops. Gas and fecal material seen in the nondistended colon. Scattered pelvic phleboliths are redemonstrated. Visualized lung bases are clear. No pneumoperitoneum is present. Impression by Dr. gambino shows overall nonobstructive bowel gas pattern. Disposition Clinical Impression: Abdominal pain Disposition: HOME SELF-CARE Condition: Good Instructions: Constipation (ED), Abdominal Pain (ED) Additional Instructions: Follow-up with your liver specialist and her primary care physician for recheck as soon as possible. Continue all medications as directed. Return here immediately for any new, worsening, or concerning symptoms. Is patient prescribed a controlled substance at discharge?: No Referrals: Matias Baron DO [Primary Care Provider] - 1-2 days Time of Disposition: 22:25
[2017-06-09 19:50] LABS: Basophils % (A) 0 %; Eosinophils # (A) 0.1 k/uL (0-0.7); Eosinophils % (A) 1 %; HCT 40.2 % (34.0-46.0); HGB 13.6 gm/dL (11.4-16.0); Lymphocytes # (A) 0.9 k/uL (1.0-4.8); Lymphocytes % (A) 11 %; MCH 30.9 pg (25.0-35.0); MCHC 33.8 g/dL (31.0-37.0); MCV 91.6 fL (80.0-100.0); Mean Platelet Volume 8.7; Monocytes # (A) 0.5 k/uL (0-1.0); Monocytes % (A) 6 %; Neutrophils # (A) 6.5 k/uL (1.3-7.7); Neutrophils % (A) 80 %; Platelet Count 146 k/uL (150-450); RBC 4.39 m/uL (3.80-5.40); RDW 13.3 % (11.5-15.5); WBC 8.2 k/uL (3.8-10.6)
[2017-06-09 20:00] LABS: ALT 19 U/L (9-52); AST 18 U/L (14-36); Albumin 3.6 g/dL (3.5-5.0); Alkaline Phosphatase 102 U/L (38-126); Amylase <30 U/L (30-110); Anion Gap 15 mmol/L; Blood Urea Nitrogen 12 mg/dL (7-17); Calcium 9.2 mg/dL (8.4-10.2); Carbon Dioxide 24 mmol/L (22-30); Chloride 93 mmol/L (98-107); Glucose 332 mg/dL (74-99); Lipase 51 U/L (23-300); Potassium 4.2 mmol/L (3.5-5.1); Sodium 132 mmol/L (137-145); Total Bilirubin 1.2 mg/dL (0.2-1.3); Total Protein 6.4 g/dL (6.3-8.2)
[2017-06-09 20:07] LABS: Creatine Kinase 24 U/L (30-135)
[2017-06-09 20:20] LABS: Creatine Kinase MB 0.6 ng/mL (0.0-2.4); Troponin I <0.012 ng/mL (0.000-0.034)
--- NOTE | 2017-06-09 20:20 | XR ---
EXAMINATION TYPE: XR KUB DATE OF EXAM: 06/09/2017 8:03 PM CLINICAL HISTORY: Abdominal pain and bloating. TECHNIQUE: Supine and upright views of the abdomen are obtained. COMPARISON: Abdominal x-ray September 21, 2016. CT abdomen October 21, 2016. FINDINGS: Exam is suboptimal secondary to patient's large body habitus. Scattered gas is seen in nond istended small bowel loops. Gas and fecal material is seen in nondistended colon. Scattered pelvic ph leboliths are redemonstrated. Visualized lung bases are clear. No pneumoperitoneum is present. IMPRESSION: Overall nonobstructive bowel gas pattern.
[2017-06-09 20:52] LABS: Appearance,Urine Cloudy (Clear); Bacteria,Urine Many /hpf; Bilirubin,Urine Negative (Negative); Blood,Urine Negative (Negative); Color,Urine Yellow; Glucose,Urine (UA) Trace (Negative); Hyaline Casts,Urine 25 /lpf (0-2); Ketones,Urine Trace (Negative); Leukocyte Esterase,Urine Moderate (Negative); Mucus,Urine Many /hpf; Nitrite,Urine Negative (Negative); PH, Urine 5.5 (5.0-8.0); Protein,Urine Trace (Negative); RBC,Urine 2 /hpf (0-5); Specific Gravity,Urine 1.018 (1.001-1.035); Squamous Epithelial Cell,Urine 19 /hpf (0-4); WBC,Urine 45 /hpf (0-5)
[2017-06-09] MEDS ORDERED: INSULIN ASPART 100 UNIT/ML 1 ML 10 ML VIAL SQ ONE (21:00)
[2017-06-09] MEDS ORDERED: INSULIN DETEMIR 100 UNIT/ML 10 ML VIAL SQ STA (21:02)
[2017-06-09 22:24] LABS: Glucose,Whole Blood 276 mg/dL (75-99)
[2017-06-09 22:40] VITALS: BP 133/68; PULSE 92; RESP 16; TEMP 96.7
== END 2017-06-09 22:40 | disposition home or self-care (01) ==
LOC: EC 16:45
DX: R10.12 Left upper quadrant pain (principal); K59.00 Constipation, unspecified; E11.9 Type 2 diabetes mellitus without complications; I10 Essential (primary) hypertension; Z95.818 Presence of other cardiac implants and grafts; Z79.4 Long term (current) use of insulin; Z79.82 Long term (current) use of aspirin; Z79.899 Other long term (current) drug therapy; Z88.0 Allergy status to penicillin
CPT/HCPCS: 36415; 74018; 80053; 81001; 82140; 82150; 82550; 82553; 83690; 84484; 85025; 87086; 99284

== ENCOUNTER 2017-12-17 23:00 | Inpatient (IN) | payer BC ==
--- NOTE | 2017-12-18 00:45 | XR ---
EXAMINATION TYPE: XR chest 2V DATE OF EXAM: 12/18/2017 COMPARISON: 04/16/2017 HISTORY: Nausea and vomiting TECHNIQUE: Frontal and lateral views of the chest are obtained. FINDINGS: There is some linear density in the mid and lower lung carballo. There is no heart failure. Heart size is normal. Thoracic aorta is atheromatous. There is no pleural effusion. IMPRESSION: Subsegmental atelectasis is new compared to old exam. No heart failure. Normal heart.
[2017-12-18 00:54] LABS: Basophils % (A) 0 %; Eosinophils % (A) 0 %; HCT 40.4 % (34.0-46.0); HGB 12.9 gm/dL (11.4-16.0); Lymphocytes # (A) 0.4 k/uL (1.0-4.8); Lymphocytes % (A) 4 %; MCHC 31.8 g/dL (31.0-37.0); MCV 100.5 fL (80.0-100.0); Mean Platelet Volume 8.6; Monocytes # (A) 0.4 k/uL (0-1.0); Monocytes % (A) 4 %; Neutrophils # (A) 7.6 k/uL (1.3-7.7); Neutrophils % (A) 91 %; Platelet Count 164 k/uL (150-450); RBC 4.02 m/uL (3.80-5.40); RDW 12.4 % (11.5-15.5); WBC 8.4 k/uL (3.8-10.6)
[2017-12-18 01:01] LABS: ALT 30 U/L (9-52); AST 51 U/L (14-36); Albumin 2.9 g/dL (3.5-5.0); Alkaline Phosphatase 230 U/L (38-126); Amylase 36 U/L (30-110); Anion Gap 11 mmol/L; Blood Urea Nitrogen 21 mg/dL (7-17); Calcium 8.8 mg/dL (8.4-10.2); Carbon Dioxide 24 mmol/L (22-30); Chloride 99 mmol/L (98-107); Glucose 146 mg/dL (74-99); Lipase 32 U/L (23-300); Potassium 4.9 mmol/L (3.5-5.1); Sodium 134 mmol/L (137-145); Total Protein 5.8 g/dL (6.3-8.2)
[2017-12-18 01:02] LABS: INR 1.3 (<1.2); Prothrombin Time 12.5 sec (9.0-12.0)
[2017-12-18 01:20] LABS: Creatine Kinase MB 0.7 ng/mL (0.0-2.4); Troponin I 0.032 ng/mL (0.000-0.034)
[2017-12-18] MEDS ORDERED: ONDANSETRON 4 MG/2 ML VIAL IVP STA (02:15)
[2017-12-18] MEDS ORDERED: HYDROmorphone 1 MG/ML 1 ML SYRINGE IVP STA ×2 (02:15→18:06)
[2017-12-18 02:54] LABS: Appearance,Urine Clear (Clear); Bacteria,Urine Many /hpf; Bilirubin,Urine Negative (Negative); Blood,Urine Negative (Negative); Color,Urine Yellow; Glucose,Urine (UA) Negative (Negative); Hyaline Casts,Urine 39 /lpf (0-2); Ketones,Urine Negative (Negative); Leukocyte Esterase,Urine Trace (Negative); Mucus,Urine Rare /hpf; Nitrite,Urine Negative (Negative); Protein,Urine Negative (Negative); RBC,Urine <1 /hpf (0-5); Specific Gravity,Urine 1.017 (1.001-1.035); Squamous Epithelial Cell,Urine <1 /hpf (0-4); Urobilinogen,Urine <2.0 mg/dL (<2.0); WBC,Urine 1 /hpf (0-5)
[2017-12-18] MEDS ORDERED: LORazepam 2 MG/ML INJ IV STA (03:16)
[2017-12-18] MEDS ORDERED: FAMOTIDINE 20 MG/2 ML VIAL IV STA (03:20)
--- NOTE | 2017-12-18 03:44 | ED ---
Abdominal Pain HPI - General Source: patient Mode of arrival: wheelchair Limitations: no limitations <Denia Pérez - Last Filed: 12/18/17 04:14> <Lester Martino - Last Filed: 12/18/17 20:11> - General Chief Complaint: Abdominal Pain Stated Complaint: Abdominal Pain Time Seen by Provider: 12/17/17 23:27 - History of Present Illness Initial Comments: 62-year-old female patient presents to the emergency department today for complaints of increased abdominal distention, shortness of breath, chest pressure. Patient does have a history of end-stage liver failure, awaiting liver transplant. Patient had her last paracentesis 2 weeks ago with her physician at [facility]. Patient states that she has been slowly having increased abdominal pressure and swelling. Patient denies any fevers or chills with this. States that she is generally uncomfortable. She denies any specific area of abdominal pain. Denies any dizziness or weakness. States that she is having dark colored urine output. Patient states that she has been very nauseated and has had no appetite. She states that she does have chronic constipation and does have to perform enemas frequently. Patient denies any recent rash, back pain, numbness, tingling, dizziness, weakness, dysuria, urinary urgency, urinary frequency, headache, visual changes, or any other complaints. (Denia Pérez) - Related Data Home Medications Medication Instructions Recorded Confirmed Insulin Aspart [NovoLOG Flexpen] See Protocol SQ AC-TID 01/14/15 12/17/17 Insulin Glargine,Hum.rec.anlog 30 unit SQ BID 10/28/16 12/17/17 [Lantus Solostar] Ondansetron [Zofran] 4 mg PO BID 11/03/16 12/17/17 Furosemide [Lasix] 80 mg PO DAILY 04/16/17 12/17/17 Spironolactone 100 mg PO Q48H 04/16/17 12/17/17 Aspirin EC [Ecotrin Low Dose] 81 mg PO DAILY 12/17/17 12/17/17 Colace 50mg 50 mg PO DAILY 12/17/17 12/17/17 Furosemide [Lasix] 40 mg PO DAILY 12/17/17 12/17/17 Lactulose 20 gm PO QID 12/17/17 12/17/17 Multivitamins, Thera [Multivitamin 1 tab PO DAILY 12/17/17 12/17/17 (formulary)] Neomycin 1,000 mg PO BID 12/17/17 12/17/17 Sennosides/Docusate Sodium 1 tab PO BID 12/17/17 12/17/17 [Senna-S Laxative Tablet] Spironolactone 50 mg PO DAILY 12/17/17 12/17/17 diphenhydrAMINE [Benadryl] 50 mg PO Q4H 12/17/17 12/17/17 metroNIDAZOLE [Flagyl] 500 mg PO TID 12/17/17 12/17/17 Allergies Allergy/AdvReac Type Severity Reaction Status Date / Time Penicillins Allergy Unknown Verified 12/17/17 23:20 Childhood Review of Systems ROS Other: All systems not noted in ROS Statement are negative. <Denia Pérez - Last Filed: 12/18/17 04:14> ROS Other: All systems not noted in ROS Statement are negative. <Lester Martino - Last Filed: 12/18/17 20:11> ROS Statement: Those systems with pertinent positive or pertinent negative responses have been documented in the HPI. Past Medical History Past Medical History: Blood Disorder, Diabetes Mellitus, Hypertension, Skin Disorder Additional Past Medical History / Comment(s): Eczema, hx. kidney stone, neuropathy dewey feet and hands, occas lightheaded and dizziness, dewey charcot feet.uti-ecoli 09-17-16, , jaundice, nausea and vomiting,. Hemochromatosis, liver failure History of Any Multi-Drug Resistant Organisms: None Reported Past Surgical History: Heart Catheterization, Hysterectomy, Tubal Ligation Additional Past Surgical History / Comment(s): kidney stone, dewey cataracts, ERCP Past Anesthesia/Blood Transfusion Reactions: No Reported Reaction Past Psychological History: No Psychological Hx Reported Smoking Status: Never smoker Past Alcohol Use History: None Reported Past Drug Use History: None Reported - Past Family History Mother Family Medical History: No Reported History Father Family Medical History: No Reported History Sister(s) Family Medical History: Cancer Additional Family Medical History / Comment(s): Colon <Denia Pérez - Last Filed: 12/18/17 04:14> General Exam Limitations: no limitations General appearance: alert, in no apparent distress, other (Vital signs upon presentation Temperature 97.4 degrees F, Pulse 112, Respirations 16, BP 132/75, Pulse Ox 100) Eye exam: Present: normal appearance, PERRL, EOMI. Absent: scleral icterus, conjunctival injection, periorbital swelling ENT exam: Present: normal exam, normal oropharynx, mucous membranes moist Respiratory exam: Present: normal lung sounds bilaterally. Absent: respiratory distress, wheezes, rales, rhonchi, stridor Cardiovascular Exam: Present: normal rhythm, tachycardia, normal heart sounds. Absent: systolic murmur, diastolic murmur, rubs, gallop, clicks GI/Abdominal exam: Present: soft, distended, normal bowel sounds, other (Rounded , ascitic). Absent: tenderness, guarding, rebound, rigid Neurological exam: Present: alert, oriented X3, CN II-XII intact Psychiatric exam: Present: normal affect, normal mood Skin exam: Present: warm, dry, intact, normal color. Absent: rash <Denia Pérez - Last Filed: 12/18/17 04:14> Vital Signs 12/17/17 12/18/17 12/18/17 23:11 02:30 03:30 Temperature 97.4 F L Pulse Rate 112 H 170 H 114 H Respiratory 16 17 18 Rate Blood Pressure 132/75 153/83 158/86 O2 Sat by Pulse 100 98 98 Oximetry 12/18/17 04:00 Temperature Pulse Rate 101 H Respiratory 17 Rate Blood Pressure 121/68 O2 Sat by Pulse 96 Oximetry Medical Decision Making - Lab Data Result diagrams: 12/17/17 23:59 12/17/17 23:59 - EKG Data -: EKG Interpreted by Il - Radiology Data Radiology results: report reviewed, image reviewed <Denia Pérez - Last Filed: 12/18/17 04:14> - Lab Data Result diagrams: 12/17/17 23:59 12/17/17 23:59 <Lester Martino - Last Filed: 12/18/17 20:11> - Medical Decision Making 62-year-old female patient presented to the emergency department today for evaluation of increased abdominal swelling, shortness of breath, abdominal pain. Physical examination did reveal an ascitic abdomen. Labs reviewed and are relatively unremarkable. Patient is saturating well at 100% on room air. Chest x-ray showed no pulmonary vascular congestion or other acute abnormalities. Patient did have elevated heart rate in the department up to 161 , EKG showed sinus tachycardia. We did treat patient with Ativan, pain medication, nausea medication ascitic improve her symptoms heart rate came back down to around 100 bpm. The patient remains quite uncomfortable and does not feel comfortable being discharged without paracentesis. We'll admit for observation for further evaluation of her heart rate and for possible paracentesis with the interventional radiologist. Did discuss plan with patient and daughter, they're agreeable. (Denia Pérez) I saw this patient in conjunction with the physician assistant teacher primary. I performed independent history and physical exam. Agree with case management. (Lester Martino) - Lab Data Lab Results 12/17/17 12/17/17 12/17/17 Range/Units 23:59 23:59 23:59 WBC 8.4 (3.8-10.6) k/uL RBC 4.02 (3.80-5.40) m/uL Hgb 12.9 (11.4-16.0) gm/dL Hct 40.4 (34.0-46.0) % MCV 100.5 H (80.0-100.0) fL MCH 32.0 (25.0-35.0) pg MCHC 31.8 (31.0-37.0) g/dL RDW 12.4 (11.5-15.5) % Plt Count 164 (150-450) k/uL Neutrophils % 91 % Lymphocytes % 4 % Monocytes % 4 % Eosinophils % 0 % Basophils % 0 % Neutrophils # 7.6 (1.3-7.7) k/uL Lymphocytes # 0.4 L (1.0-4.8) k/uL Monocytes # 0.4 (0-1.0) k/uL Eosinophils # 0.0 (0-0.7) k/uL Basophils # 0.0 (0-0.2) k/uL PT (9.0-12.0) sec INR (<1.2) APTT (22.0-30.0) sec Sodium 134 L (137-145) mmol/L Potassium 4.9 (3.5-5.1) mmol/L Chloride 99 (98-107) mmol/L Carbon Dioxide 24 (22-30) mmol/L Anion Gap 11 mmol/L BUN 21 H (7-17) mg/dL Creatinine 0.78 (0.52-1.04) mg/dL Est GFR (CKD-EPI)AfAm >90 (>60 ml/min/1.73 sqM) Est GFR (CKD-EPI)NonAf 82 (>60 ml/min/1.73 sqM) Glucose 146 H (74-99) mg/dL Estimated Ave Glu mg/dL Hemoglobin A1c (4.0-6.0) % Calcium 8.8 (8.4-10.2) mg/dL Magnesium (1.6-2.3) mg/dL Total Bilirubin 1.0 (0.2-1.3) mg/dL AST 51 H (14-36) U/L ALT 30 (9-52) U/L Alkaline Phosphatase 230 H (38-126) U/L Ammonia (<30) umol/L Total Creatine Kinase 22 L (30-135) U/L CK-MB (CK-2) 0.7 (0.0-2.4) ng/mL CK-MB (CK-2) Rel Index 3.2 Troponin I 0.032 (0.000-0.034) ng/mL Total Protein 5.8 L (6.3-8.2) g/dL Albumin 2.9 L (3.5-5.0) g/dL Amylase 36 (30-110) U/L Lipase 32 (23-300) U/L TSH (0.465-4.680) mIU/L Urine Color Urine Appearance (Clear) Urine pH (5.0-8.0) Ur Specific [place] (1.001-1.035) Urine Protein (Negative) Urine Glucose (UA) (Negative) Urine Ketones (Negative) Urine Blood (Negative) Urine Nitrite (Negative) Urine Bilirubin (Negative) Urine Urobilinogen (<2.0) mg/dL Ur Leukocyte Esterase (Negative) Urine RBC (0-5) /hpf Urine WBC (0-5) /hpf Ur Squamous Epith Cells (0-4) /hpf Urine Bacteria (None) /hpf Hyaline Casts (0-2) /lpf Urine Mucus (None) /hpf 12/17/17 12/18/17 12/18/17 Range/Units 23:59 00:01 00:10 WBC (3.8-10.6) k/uL RBC (3.80-5.40) m/uL Hgb (11.4-16.0) gm/dL Hct (34.0-46.0) % MCV (80.0-100.0) fL MCH (25.0-35.0) pg MCHC (31.0-37.0) g/dL RDW (11.5-15.5) % Plt Count (150-450) k/uL Neutrophils % % Lymphocytes % % Monocytes % % Eosinophils % % Basophils % % Neutrophils # (1.3-7.7) k/uL Lymphocytes # (1.0-4.8) k/uL Monocytes # (0-1.0) k/uL Eosinophils # (0-0.7) k/uL Basophils # (0-0.2) k/uL PT 12.5 H (9.0-12.0) sec INR 1.3 H (<1.2) APTT 24.0 (22.0-30.0) sec Sodium (137-145) mmol/L Potassium (3.5-5.1) mmol/L Chloride (98-107) mmol/L Carbon Dioxide (22-30) mmol/L Anion Gap mmol/L BUN (7-17) mg/dL Creatinine (0.52-1.04) mg/dL Est GFR (CKD-EPI)AfAm (>60 ml/min/1.73 sqM) Est GFR (CKD-EPI)NonAf (>60 ml/min/1.73 sqM) Glucose (74-99) mg/dL Estimated Ave Glu mg/dL 94 Hemoglobin A1c 4.9 (4.0-6.0) % Calcium (8.4-10.2) mg/dL Magnesium (1.6-2.3) mg/dL Total Bilirubin (0.2-1.3) mg/dL AST (14-36) U/L ALT (9-52) U/L Alkaline Phosphatase (38-126) U/L Ammonia 24 (<30) umol/L Total Creatine Kinase (30-135) U/L CK-MB (CK-2) (0.0-2.4) ng/mL CK-MB (CK-2) Rel Index Troponin I (0.000-0.034) ng/mL Total Protein (6.3-8.2) g/dL Albumin (3.5-5.0) g/dL Amylase (30-110) U/L Lipase (23-300) U/L TSH (0.465-4.680) mIU/L Urine Color Urine Appearance (Clear) Urine pH (5.0-8.0) Ur Specific [place] (1.001-1.035) Urine Protein (Negative) Urine Glucose (UA) (Negative) Urine Ketones (Negative) Urine Blood (Negative) Urine Nitrite (Negative) Urine Bilirubin (Negative) Urine Urobilinogen (<2.0) mg/dL Ur Leukocyte Esterase (Negative) Urine RBC (0-5) /hpf Urine WBC (0-5) /hpf Ur Squamous Epith Cells (0-4) /hpf Urine Bacteria (None) /hpf Hyaline Casts (0-2) /lpf Urine Mucus (None) /hpf 12/18/17 12/18/17 Range/Units 00:10 02:30 WBC (3.8-10.6) k/uL RBC (3.80-5.40) m/uL Hgb (11.4-16.0) gm/dL Hct (34.0-46.0) % MCV (80.0-100.0) fL MCH (25.0-35.0) pg MCHC (31.0-37.0) g/dL RDW (11.5-15.5) % Plt Count (150-450) k/uL Neutrophils % % Lymphocytes % % Monocytes % % Eosinophils % % Basophils % % Neutrophils # (1.3-7.7) k/uL Lymphocytes # (1.0-4.8) k/uL Monocytes # (0-1.0) k/uL Eosinophils # (0-0.7) k/uL Basophils # (0-0.2) k/uL PT (9.0-12.0) sec INR (<1.2) APTT (22.0-30.0) sec Sodium (137-145) mmol/L Potassium (3.5-5.1) mmol/L Chloride (98-107) mmol/L Carbon Dioxide (22-30) mmol/L Anion Gap mmol/L BUN (7-17) mg/dL Creatinine (0.52-1.04) mg/dL Est GFR (CKD-EPI)AfAm (>60 ml/min/1.73 sqM) Est GFR (CKD-EPI)NonAf (>60 ml/min/1.73 sqM) Glucose (74-99) mg/dL Estimated Ave Glu mg/dL Hemoglobin A1c (4.0-6.0) % Calcium (8.4-10.2) mg/dL Magnesium 1.8 (1.6-2.3) mg/dL Total Bilirubin (0.2-1.3) mg/dL AST (14-36) U/L ALT (9-52) U/L Alkaline Phosphatase (38-126) U/L Ammonia (<30) umol/L Total Creatine Kinase (30-135) U/L CK-MB (CK-2) (0.0-2.4) ng/mL CK-MB (CK-2) Rel Index Troponin I (0.000-0.034) ng/mL Total Protein (6.3-8.2) g/dL Albumin (3.5-5.0) g/dL Amylase (30-110) U/L Lipase (23-300) U/L TSH 2.930 (0.465-4.680) mIU/L Urine Color Yellow Urine Appearance Clear (Clear) Urine pH 5.0 (5.0-8.0) Ur Specific [place] 1.017 (1.001-1.035) Urine Protein Negative (Negative) Urine Glucose (UA) Negative (Negative) Urine Ketones Negative (Negative) Urine Blood Negative (Negative) Urine Nitrite Negative (Negative) Urine Bilirubin Negative (Negative) Urine Urobilinogen <2.0 (<2.0) mg/dL Ur Leukocyte Esterase Trace H (Negative) Urine RBC <1 (0-5) /hpf Urine WBC 1 (0-5) /hpf Ur Squamous Epith Cells <1 (0-4) /hpf Urine Bacteria Many H (None) /hpf Hyaline Casts 39 H (0-2) /lpf Urine Mucus Rare H (None) /hpf - EKG Data EKG Comments: EKG #1 obtained at 0001 shows sinus tachycardia with a heart rate at 101, QRS duration 56, QT 334, QTC 433. No evidence of ST elevation. Exam is somewhat limited due to artifact. EKG #2 was obtained at 02 54 shows sinus tachycardia with a ventricular rate of 161, IA interval 114, QRS duration 84, QT 274, QTC 448. No evidence of ST elevation or depression. (Denia Pérez) - Radiology Data Two-view x-ray of the chest is obtained. There is some linear density in the mid and lower lung carballo. There is no heart failure. Heart size is normal. Thoracic aorta is atheromatous. There is no pleural effusion. Impression by Dr. Mak shows subsegmental atelectasis new compared to old exam. No heart failure. Normal heart. (Denia Pérez) Disposition Decision to Admit Reason: Admit from EC Decision Date: 12/18/17 Decision Time: 04:14 <Denia Pérez - Last Filed: 12/18/17 04:14> <Lester Martino - Last Filed: 12/18/17 20:11> Clinical Impression: Ascites, Abdominal pain, Tachycardia Disposition: ADMITTED IP TO THIS [facility] Condition: Serious
[2017-12-18 03:51] LABS: Magnesium 1.8 mg/dL (1.6-2.3)
[2017-12-18] MEDS ORDERED: NALOXONE 0.4 MG/ML 1 ML VIAL IV PRN (04:07)
[2017-12-18] MEDS ORDERED: ONDANSETRON 4 MG/2 ML VIAL IVP PRN (04:07)
--- NOTE | 2017-12-18 04:14 | CDI ---
Documentation Clarification OP Dear Denia TINAJERO, [facility] Please do addendum to ED report for Clinical impression. Thank you, Maria Luisa Arroyo Friction Saw Operator If you have any question, Please contact chronic manager at [phone] [facility]
[2017-12-18 04:57] VITALS: BMI 28.8
[2017-12-18] MEDS: diphenhydrAMINE 25 MG CAP PO SCH ×5 (05:18→21:18)
[2017-12-18 07:35] LABS: Glucose,Whole Blood 128 mg/dL (75-99)
[2017-12-18] MEDS ORDERED: COLACE PO SCH (09:00)
[2017-12-18] MEDS ORDERED: FUROSEMIDE 80 MG TAB PO SCH (09:00)
[2017-12-18] MEDS: INSULIN DETEMIR 100 UNIT/ML 10 ML VIAL SQ SCH ×2 (09:25→21:19)
[2017-12-18] MEDS: metroNIDAZOLE 500 MG TAB PO SCH ×3 (09:31→21:20)
[2017-12-18] MEDS: FUROSEMIDE 40 MG TAB PO SCH (09:32)
[2017-12-18] MEDS: SPIRONOLACTONE 25 MG TAB PO SCH (09:32)
[2017-12-18] MEDS: NEOMYCIN 500 MG TAB PO SCH ×2 (09:32→21:20)
[2017-12-18] MEDS: LACTULOSE 20 GM/30 ML CUP PO SCH ×4 (09:32→21:20)
[2017-12-18] MEDS: SENNOSIDES-DOCUSATE SODIUM 1 EACH TAB PO SCH ×2 (09:33→21:20)
[2017-12-18 12:08] LABS: Glucose,Whole Blood 111 mg/dL (75-99)
[2017-12-18 12:30] LABS: Hemoglobin A1C 4.9 % (4.0-6.0)
--- NOTE | 2017-12-18 12:38 | P.HPIM ---
History of Present Illness On-call hospitalist covering for Dr. Baron over the weekend This is a pleasant 62 years old female with past medical history of diabetes mellitus, hypertension, kidney stone peripheral neuropathy, mostly diabetic neuropathy, hemachromatosis , she is a status post paracentesis about 2 weeks and [address] [facility]. She follow up with the gastroenterology team at [facility]. coronary artery disease status post cardiac cath. She presents because of abdominal discomfort and distention a few days duration. Patient she had paracentesis twice in the last month about 2 on 4 weeks ago. Now her abdominal distention is becoming more severe and causing her associated with abdominal pain generalized radiating to the back about 8/10 in severity however patient does not look in distress and pain can be controlled by Tylenol. Associated with nausea and vomiting so many times that patient cannot specify yesterday. However patient has no change in her bowel habits which is chronic constipation, as per patient and daughter at bedside usually she has to go by enema. In the emergency room her CBC and BMP were unremarkable except for mild hyponatremia at 134, INR 1.3, LFTs showing normal ALT, mildly elevated AST at 51 and alkaline phosphatase is days at 2:30. Bilirubin is normal at 1.0. Amylase and lipase are within normal limits. UA is nonsuspicious for infection. Vitals are stable and patient is afebrile however she wasn't tachycardic, currently at 102. Chest x-ray shows atelectasis with no heart failure. EKG shows sinus tachycardia at 161 with QTC [address] deviation, other EKG shows accelerated junctional rhythm. Of note patient's follow-up with Dr. Cervantes the neurologist at [facility] for her generalized weakness and tremor, the do not of investigation for her neuropathy with no specific diagnosis as per daughter and if the investigation will not show much she might be considered for hospice care by the patient and her daughter Review of Systems CONSTITUTIONAL: No fever, no malaise, no fatigue. HEENT: No recent visual problems or hearing problems. Denied any sore throat. CARDIOVASCULAR: No orthopnea, PND, no palpitations, no syncope. PULMONARY: No shortness of breath, no cough, no hemoptysis. GASTROINTESTINAL: No diarrhea, no nausea, no vomiting, no abdominal pain. Normoactive bowel sounds. NEUROLOGICAL: No headaches, no weakness, no numbness. HEMATOLOGICAL: Denies any bleeding or petechiae. GENITOURINARY: Denies any burning micturition, frequency, or urgency. MUSCULOSKELETAL/RHEUMATOLOGICAL: Denies any joint pain, swelling, or any muscle pain. ENDOCRINE: Denies any polyuria or polydipsia. Past Medical History Past Medical History: Blood Disorder, Diabetes Mellitus, Hypertension, Skin Disorder Additional Past Medical History / Comment(s): Eczema, hx. kidney stone, neuropathy dewey feet and hands, occas lightheaded and dizziness, dewey charcot feet.uti-ecoli 09-17-16, , jaundice, nausea and vomiting,. Hemochromatosis, liver failure History of Any Multi-Drug Resistant Organisms: None Reported Past Surgical History: Heart Catheterization, Hysterectomy, Tubal Ligation Additional Past Surgical History / Comment(s): kidney stone, dewey cataracts, ERCP Past Anesthesia/Blood Transfusion Reactions: No Reported Reaction Past Psychological History: No Psychological Hx Reported Smoking Status: Never smoker Past Alcohol Use History: None Reported Additional Past Alcohol Use History / Comment(s): pt lives at home with her spouse samantha. pt uses cane/walker/w/c also has glucometer Past Drug Use History: None Reported - Past Family History Mother Family Medical History: No Reported History Father Family Medical History: No Reported History Sister(s) Family Medical History: Cancer Additional Family Medical History / Comment(s): Colon Medications and Allergies Home Medications Medication Instructions Recorded Confirmed Type Insulin Aspart [NovoLOG Flexpen] See Protocol SQ AC-TID 01/14/15 12/17/17 History Insulin Glargine,Hum.rec.anlog 30 unit SQ BID 10/28/16 12/17/17 History [Lantus Solostar] Ondansetron [Zofran] 4 mg PO BID 11/03/16 12/17/17 History Furosemide [Lasix] 80 mg PO DAILY 04/16/17 12/17/17 History Spironolactone 100 mg PO Q48H 04/16/17 12/17/17 History Aspirin EC [Ecotrin Low Dose] 81 mg PO DAILY 12/17/17 12/17/17 History Colace 50mg 50 mg PO DAILY 12/17/17 12/17/17 History Furosemide [Lasix] 40 mg PO DAILY 12/17/17 12/17/17 History Lactulose 20 gm PO QID 12/17/17 12/17/17 History Multivitamins, Thera [Multivitamin 1 tab PO DAILY 12/17/17 12/17/17 History (formulary)] Neomycin 1,000 mg PO BID 12/17/17 12/17/17 History Sennosides/Docusate Sodium 1 tab PO BID 12/17/17 12/17/17 History [Senna-S Laxative Tablet] Spironolactone 50 mg PO DAILY 12/17/17 12/17/17 History diphenhydrAMINE [Benadryl] 50 mg PO Q4H 12/17/17 12/17/17 History metroNIDAZOLE [Flagyl] 500 mg PO TID 12/17/17 12/17/17 History Allergies Allergy/AdvReac Type Severity Reaction Status Date / Time Penicillins Allergy Unknown Verified 12/17/17 23:20 Childhood Physical Exam Vitals: Vital Signs Temp Pulse Pulse Resp BP BP Pulse Ox 12/18/17 08:06 98.3 F 102 H 16 147/77 95 12/18/17 04:30 97.7 F 12/18/17 04:00 101 H 17 121/68 96 12/18/17 03:30 114 H 18 158/86 98 12/18/17 02:30 170 H 17 153/83 98 12/17/17 23:11 97.4 F L 112 H 16 132/75 100 Intake and Output 12/17/17 12/18/17 12/18/17 22:59 06:59 14:59 Other: Weight 86.183 kg GENERAL: The patient is alert and oriented x3, not in any acute distress. Well developed, well nourished. HEENT: Pupils are round and equally reacting to light. EOMI. No scleral icterus. No conjunctival pallor. Normocephalic, atraumatic. No pharyngeal erythema. No thyromegaly. CARDIOVASCULAR: S1 and S2 present. No murmurs, rubs, or gallops. PULMONARY: Chest is clear to auscultation, no wheezing or crackles. -ABDOMEN: Soft, lysed abdominal tenderness with no rebound tenderness, abdominal distention, normoactive bowel sounds. No palpable organomegaly. MUSCULOSKELETAL: No joint swelling or deformity. EXTREMITIES: No cyanosis, clubbing, or pedal edema. NEUROLOGICAL: Gross neurological examination did not reveal any focal deficits. SKIN: No rashes. Results CBC & Chem 7: 12/17/17 23:59 12/17/17 23:59 Labs: Abnormal Lab Results - Last 24 Hours (Table) 12/17/17 12/17/17 12/17/17 Range/Units 23:59 23:59 23:59 MCV 100.5 H (80.0-100.0) fL Lymphocytes # 0.4 L (1.0-4.8) k/uL PT (9.0-12.0) sec INR (<1.2) Sodium 134 L (137-145) mmol/L BUN 21 H (7-17) mg/dL Glucose 146 H (74-99) mg/dL POC Glucose (mg/dL) (75-99) mg/dL AST 51 H (14-36) U/L Alkaline Phosphatase 230 H (38-126) U/L Total Creatine Kinase 22 L (30-135) U/L Total Protein 5.8 L (6.3-8.2) g/dL Albumin 2.9 L (3.5-5.0) g/dL Ur Leukocyte Esterase (Negative) Urine Bacteria (None) /hpf Hyaline Casts (0-2) /lpf Urine Mucus (None) /hpf 12/17/17 12/18/17 12/18/17 Range/Units 23:59 02:30 07:06 MCV (80.0-100.0) fL Lymphocytes # (1.0-4.8) k/uL PT 12.5 H (9.0-12.0) sec INR 1.3 H (<1.2) Sodium (137-145) mmol/L BUN (7-17) mg/dL Glucose (74-99) mg/dL POC Glucose (mg/dL) 128 H (75-99) mg/dL AST (14-36) U/L Alkaline Phosphatase (38-126) U/L Total Creatine Kinase (30-135) U/L Total Protein (6.3-8.2) g/dL Albumin (3.5-5.0) g/dL Ur Leukocyte Esterase Trace H (Negative) Urine Bacteria Many H (None) /hpf Hyaline Casts 39 H (0-2) /lpf Urine Mucus Rare H (None) /hpf Microbiology - Last 24 Hours (Table) 12/18/17 02:30 Urine Culture - Preliminary Urine,Catheterized Thrombosis Risk Factor Assmnt - Choose All That Apply Any of the Below Risk Factors Present?: No Other Risk Factors: Yes Each Risk Factor Represents 2 Points: Age 61-74 years Other congenital or acquired thrombophilia - If yes, enter type in comment: No Thrombosis Risk Factor Assessment Total Risk Factor Score: 2 Thrombosis Risk Factor Assessment Level: Low Risk Assessment and Plan Assessment: Acute decompensated liver failure, with ascites History of hemachromatosis, not awaiting liver transplant as per daughter at bedside Diabetes mellitus, on insulin neuropathy under investigation by neurologist outpatient Essential hypertension History of kidney stone History of coronary artery disease status post CABG Plan: This is a pleasant 62 years old female who presents with abdominal discomfort and worsening ascites. Continue with gentle hydration, continue with antibiotic. Resume insulin and follow-up insulin sliding scale. follow-up input and output. GI consult.Labs and medication were resumed. Continue same treatment. Continue with symptomatic treatment. Resume home medication. Monitor lytes and vitals. DVT and GI prophylaxis. Further recommendationsof the clinical course of the patient DVT prophylaxis: Subcutaneous heparin GI Prophylaxis: Pepcid PT/OT: Pending Prognosis is guarded
[2017-12-18] MEDS: ASPIRIN 81 MG PO SCH (12:45)
[2017-12-18] MEDS: MULTIVITAMINS, THERA 1 EACH TAB PO SCH (13:12)
[2017-12-18] MEDS: ACETAMINOPHEN TAB 325 MG TAB PO PRN (13:38)
[2017-12-18 13:42] LABS: Appearance,Urine Clear (Clear); Bilirubin,Urine Negative (Negative); Blood,Urine Negative (Negative); Color,Urine Yellow; Glucose,Urine (UA) Negative (Negative); Ketones,Urine Negative (Negative); Leukocyte Esterase,Urine Negative (Negative); Nitrite,Urine Negative (Negative); Protein,Urine Negative (Negative); Specific Gravity,Urine 1.016 (1.001-1.035); Urobilinogen,Urine <2.0 mg/dL (<2.0)
[2017-12-18 17:16] LABS: Glucose,Whole Blood 149 mg/dL (75-99)
[2017-12-18] MEDS: SODIUM CHLORIDE 0.9% 250 ML IV SCH ×2 (17:54→17:55)
[2017-12-18 19:57] LABS: Glucose,Whole Blood 142 mg/dL (75-99)
[2017-12-18] MEDS: FAMOTIDINE 20 MG/2 ML VIAL IV SCH (21:18)
[2017-12-18] MEDS: HEPARIN SODIUM,PORCINE 5,000 UNIT/ML 1 ML VIAL SQ SCH (21:19)
[2017-12-18] MEDS ORDERED: FUROSEMIDE 10 MG/ML 4 ML VIAL IV STA (21:53)
[2017-12-19] MEDS: ACETAMINOPHEN TAB 325 MG TAB PO PRN (00:10)
[2017-12-19] MEDS: diphenhydrAMINE 25 MG CAP PO SCH ×6 (00:10→20:12)
[2017-12-19] MEDS: HYDROmorphone 1 MG/ML 1 ML SYRINGE IVP PRN ×3 (01:36→20:57)
[2017-12-19 07:13] LABS: Basophils % (A) 0 %; Eosinophils % (A) 0 %; HCT 38.9 % (34.0-46.0); Lymphocytes # (A) 0.8 k/uL (1.0-4.8); Lymphocytes % (A) 8 %; MCH 32.9 pg (25.0-35.0); MCHC 33.3 g/dL (31.0-37.0); MCV 98.7 fL (80.0-100.0); Mean Platelet Volume 7.8; Monocytes # (A) 0.5 k/uL (0-1.0); Monocytes % (A) 5 %; Neutrophils # (A) 8.6 k/uL (1.3-7.7); Neutrophils % (A) 86 %; Platelet Count 157 k/uL (150-450); RBC 3.94 m/uL (3.80-5.40); RDW 12.4 % (11.5-15.5); WBC 10.1 k/uL (3.8-10.6)
[2017-12-19 07:36] LABS: Albumin 2.7 g/dL (3.5-5.0); Calcium 8.7 mg/dL (8.4-10.2); Potassium 4.8 mmol/L (3.5-5.1); Total Protein 5.8 g/dL (6.3-8.2)
[2017-12-19] MEDS ORDERED: SPIRONOLACTONE 25 MG TAB PO SCH (09:00)
[2017-12-19] MEDS ORDERED: traMADol 50 MG TAB PO PRN (10:25)
[2017-12-19] MEDS ORDERED: FUROSEMIDE 10 MG/ML 4 ML VIAL IV STA (10:26)
--- NOTE | 2017-12-19 10:27 | P.PN ---
Subjective On-call hospitalist covering for Dr. Baron over the weekend This is a pleasant 62 years old female with past medical history of diabetes mellitus, hypertension, kidney stone peripheral neuropathy, mostly diabetic neuropathy, hemachromatosis , she is a status post paracentesis about 2 weeks and 4 weeks ago at [facility]. She follow up with the gastroenterology team at [facility]. coronary artery disease status post cardiac cath. She presents because of abdominal discomfort and distention a few days duration. Patient she had paracentesis twice in the last month about 2 on 4 weeks ago. Now her abdominal distention is becoming more severe and causing her associated with abdominal pain generalized radiating to the back about 8/10 in severity however patient does not look in distress and pain can be controlled by Tylenol. Associated with nausea and vomiting so many times that patient cannot specify yesterday. However patient has no change in her bowel habits which is chronic constipation, as per patient and daughter at bedside usually she has to go by enema. In the emergency room her CBC and BMP were unremarkable except for mild hyponatremia at 134, INR 1.3, LFTs showing normal ALT, mildly elevated AST at 51 and alkaline phosphatase is days at 2:30. Bilirubin is normal at 1.0. Amylase and lipase are within normal limits. UA is nonsuspicious for infection. Vitals are stable and patient is afebrile however she wasn't tachycardic, currently at 102. Chest x-ray shows atelectasis with no heart failure. EKG shows sinus tachycardia at 161 with QTC [address] deviation, other EKG shows accelerated junctional rhythm. Of note patient's follow-up with Dr. Cervantes the neurologist at [facility] for her generalized weakness and tremor, the do not of investigation for her neuropathy with no specific diagnosis as per daughter and if the investigation will not show much she might be considered for hospice care by the patient and her daughter 12/19/2014 Patient still has ascites although it looks a little bit less today. She had stopped still about 3 bouts of vomiting since yesterday with no blood. However her breathing looks better and is pain is mildly controlled this coming down from 8 to 7/10 in severity. Will add Ultram when necessary. GI team will see the patient for recurrent ascites, as this is the third one in one month. Patient had Jhaveri catheter placed yesterday. And she looks fluid overload so give more diuresis. Objective - Vital Signs Vital signs: Vital Signs Temp 97.8 F 12/19/17 07:00 Pulse 95 12/19/17 07:00 Resp 14 12/19/17 07:00 BP 124/75 12/19/17 07:00 Pulse Ox 96 12/19/17 07:00 Intake & Output 12/18/17 12/19/17 12/19/17 18:59 06:59 18:59 Intake Total 900 Output Total 190 725 Balance 710 -725 Intake: IV 250 Sodium Chloride 0.9% 250 250 ml @ 999 mls/hr IV .Q16M [facility] Rx#:[id number] Oral 650 Output: Urine 190 725 Straight 200 - Exam GENERAL: The patient is alert and oriented x3, not in any acute distress. Well developed, well nourished. HEENT: Pupils are round and equally reacting to light. EOMI. No scleral icterus. No conjunctival pallor. Normocephalic, atraumatic. No pharyngeal erythema. No thyromegaly. CARDIOVASCULAR: S1 and S2 present. No murmurs, rubs, or gallops. PULMONARY: Chest is clear to auscultation, no wheezing or crackles. -ABDOMEN: Soft, ,mild abdominal tenderness on the right middle side with no rebound tenderness, with abdominal distention, normoactive bowel sounds. No palpable organomegaly. MUSCULOSKELETAL: No joint swelling or deformity. EXTREMITIES: No cyanosis, clubbing, or pedal edema. NEUROLOGICAL: Gross neurological examination did not reveal any focal deficits. SKIN: No rashes. - Labs CBC & Chem 7: 12/19/17 06:47 12/19/17 06:47 Labs: Abnormal Lab Results - Last 24 Hours (Table) 12/18/17 12/18/17 12/18/17 Range/Units 12:01 16:59 19:55 Neutrophils # (1.3-7.7) k/uL Lymphocytes # (1.0-4.8) k/uL Sodium (137-145) mmol/L BUN (7-17) mg/dL POC Glucose (mg/dL) 111 H 149 H 142 H (75-99) mg/dL AST (14-36) U/L Alkaline Phosphatase (38-126) U/L Total Protein (6.3-8.2) g/dL Albumin (3.5-5.0) g/dL 12/19/17 12/19/17 Range/Units 06:47 06:47 Neutrophils # 8.6 H (1.3-7.7) k/uL Lymphocytes # 0.8 L (1.0-4.8) k/uL Sodium 134 L (137-145) mmol/L BUN 23 H (7-17) mg/dL POC Glucose (mg/dL) (75-99) mg/dL AST 50 H (14-36) U/L Alkaline Phosphatase 244 H (38-126) U/L Total Protein 5.8 L (6.3-8.2) g/dL Albumin 2.7 L (3.5-5.0) g/dL Microbiology - Last 24 Hours (Table) 12/18/17 02:30 Urine Culture - Preliminary Urine,Catheterized Assessment and Plan Assessment: Acute decompensated liver failure, with ascites History of hemachromatosis, not awaiting liver transplant as per daughter at bedside Diabetes mellitus, on insulin neuropathy under investigation by neurologist outpatient Essential hypertension History of kidney stone History of coronary artery disease status post CABG Plan: This is a pleasant 62 years old female who presents with abdominal discomfort and worsening ascites. Continue with gentle hydration, continue with antibiotic. Resume insulin and follow-up insulin sliding scale. follow-up input and output. GI consult.Labs and medication were resumed. Continue same treatment. Continue with symptomatic treatment. Resume home medication. Monitor lytes and vitals. DVT and GI prophylaxis. Further recommendationsof the clinical course of the patient DVT prophylaxis: Subcutaneous heparin GI Prophylaxis: Pepcid PT/OT: Pending Prognosis is guarded
[2017-12-19] MEDS: LACTULOSE 20 GM/30 ML CUP PO SCH ×4 (10:30→20:57)
[2017-12-19] MEDS: ASPIRIN 81 MG PO SCH (10:30)
[2017-12-19] MEDS: FUROSEMIDE 40 MG TAB PO SCH (10:30)
[2017-12-19] MEDS: NEOMYCIN 500 MG TAB PO SCH ×2 (10:30→20:12)
[2017-12-19] MEDS: SENNOSIDES-DOCUSATE SODIUM 1 EACH TAB PO SCH ×2 (10:30→20:12)
[2017-12-19] MEDS: HEPARIN SODIUM,PORCINE 5,000 UNIT/ML 1 ML VIAL SQ SCH ×2 (10:31→20:12)
[2017-12-19] MEDS: SPIRONOLACTONE 25 MG TAB PO SCH (10:31)
[2017-12-19] MEDS: INSULIN DETEMIR 100 UNIT/ML 10 ML VIAL SQ SCH ×2 (10:31→20:03)
[2017-12-19] MEDS: FAMOTIDINE 20 MG/2 ML VIAL IV SCH ×2 (10:31→20:12)
[2017-12-19] MEDS: metroNIDAZOLE 500 MG TAB PO SCH ×3 (10:31→20:57)
[2017-12-19 11:50] LABS: Glucose,Whole Blood 80 mg/dL (75-99)
[2017-12-19] MEDS: MULTIVITAMINS, THERA 1 EACH TAB PO SCH (11:57)
--- NOTE | 2017-12-19 13:27 | CONS ---
CONSULTATION DATE OF CONSULTATION: 12/19/2017 REASON FOR CONSULTATION: Liver cirrhosis and ascites. HISTORY OF PRESENT ILLNESS: The patient is a 62-year-old pleasant white female who is known to me from her previous hospitalization. She was diagnosed with cirrhosis of the liver secondary to hereditary hemochromatosis approximately a year ago and she has been followed by Dr. Melgar at [facility] and has been liver transplant since December of last year. Recently she started developing significant ascites requiring large volume paracentesis on a frequent basis. She had 5 of these done in the last 3 months. The last 1 was 2 weeks ago at [facility] and 13 L of fluid was removed. She started having abdominal distention, abdominal discomfort for the last few days, and hence came to the emergency room and subsequently admitted to the hospital for further evaluation. She does complain of diffuse abdominal discomfort, some nausea, vomiting. She also has generalized weakness and some tremors for which she is followed by Dr. Cervantes at [facility]. PAST MEDICAL HISTORY: Significant for longstanding history of diabetes mellitus, hypertension, chronic skin eczema, cirrhosis of the liver/hemochromatosis. PAST SURGICAL HISTORY: Hysterectomy, tubal ligation, bilateral cataract surgery, multiple large volume paracentesis for the last 3 months. SOCIAL HISTORY: No smoking. No alcohol use. FAMILY HISTORY: Mother and father unremarkable. MEDICATIONS: At home include NovoLog, Lantus, Zofran, Lasix and Spironolactone, aspirin, Colace, multivitamin, Benadryl. ALLERGIES: PENICILLIN. REVIEW OF SYSTEMS: Cardiopulmonary: No chest pain, shortness of breath. Genitourinary: No dysuria or hematuria. Musculoskeletal: Generalized weakness. Neurology unremarkable. Psychiatric unremarkable. ENT/vision unremarkable. Constitutional: Weight loss of 15 pounds. No fever, chills, night sweats. Endocrine: Unremarkable. Hematology: Unremarkable. Gastrointestinal: As mentioned earlier. PHYSICAL EXAMINATION: She appears comfortable. No apparent distress. VITAL SIGNS: Stable. Blood pressure is 138/71, pulse rate 104, temperature 97.6. HEENT examination unremarkable. Conjunctivae pink. Sclerae anicteric. Oral cavity no lesions. Neck: No jugular venous distention or lymph node enlargement. The chest was clear to auscultation. HEART: Regular rate and rhythm. ABDOMEN: Obese. Liver and spleen not palpable. Some free fluid noted. Extremities: 1+ pedal edema. Skin: No rashes. Neuro: She is alert and oriented x3. No focal deficits. LABS: From today WBC 10.1, hemoglobin 13, platelets normal. Basic metabolic panel is within normal limits. AST 50, ALT 29, alkaline phosphatase 244, T-bilirubin 1. IMPRESSION: 1. Cirrhosis of the liver with gradual decompensation related to heredity hemochromatosis diagnosed in November of 2016. She follows with Dr. Melgar at [facility]. Presently on liver transplant list, but on hold for the last one month because of gradual decompensation. 2. Refractory ascites requiring large volume paracentesis every 2 weeks. Last one was done at [facility] 2 weeks ago. Presently on Lasix 40 mg daily and Aldactone 50 mg daily. 3. Generalized weakness. 4. Mild coagulopathy secondary to underlying liver disease. RECOMMENDATIONS: 1. Continue the current diuretic regimen, Lasix 40 mg daily and Aldactone 50 mg daily. 2. Low-salt diet. 3. We will schedule her for a large volume paracentesis tomorrow and in fact, schedule her for a paracentesis every 2 weeks on an outpatient basis. 4. Continue with neomycin for prevention of hepatic encephalopathy along with lactulose. Thank you for this consultation. We will follow the patient closely during her hospital stay. MMODL / IJN: [id number] /
[2017-12-19 17:23] LABS: Glucose,Whole Blood 95 mg/dL (75-99)
[2017-12-19] MEDS ORDERED: ONDANSETRON 4 MG/2 ML VIAL IVP PRN (17:32)
[2017-12-19 20:00] LABS: Glucose,Whole Blood 107 mg/dL (75-99)
[2017-12-20] MEDS: HYDROmorphone 1 MG/ML 1 ML SYRINGE IVP PRN ×3 (05:12→20:34)
[2017-12-20 07:30] LABS: Glucose,Whole Blood 170 mg/dL (75-99)
[2017-12-20] MEDS: ASPIRIN 81 MG PO SCH (07:43)
[2017-12-20] MEDS ORDERED: NA PHOS,M-B/NA PHOS,DI-BA 133 ML ENEMA RECTAL ONE (08:34)
[2017-12-20] MEDS ORDERED: ONDANSETRON 4 MG/2 ML VIAL IVP PRN (08:35)
--- NOTE | 2017-12-20 10:02 | P.PN ---
Subjective Progress Note Date: 12/20/17 Principal diagnosis: Ascites history of liver cirrhosis hereditary hemochromatosis Admitted with worsening ascites. Paracentesis scheduled today. Status post paracentesis 1-2 weeks ago at [facility] 13 L removed. Objective - Vital Signs Vital signs: Vital Signs Temp 98.3 F 12/20/17 07:00 Pulse 94 12/20/17 07:00 Resp 16 12/20/17 07:00 BP 127/74 12/20/17 07:00 Pulse Ox 96 12/20/17 07:00 Intake & Output 12/19/17 12/20/17 12/20/17 18:59 06:59 18:59 Intake Total 240 50 Output Total 500 525 Balance -260 -475 Intake: Oral 240 50 Output: Urine 500 525 Straight 500 Other: Voiding Method Indwelling Catheter Indwelling Catheter - Exam General appearance: The patient is alert, oriented, in no acute distress. HET: Head is normocephalic and atraumatic. Pupils are equal and reactive. Oropharynx is clear without lesions. Neck: Supple without lymphadenopathy. Trachea midline. Heart: S1 S2. Regular rate and rhythm. Lungs: No crackles or wheezes are heard. Abdomen: Soft, nontender, grossly distended with severe ascites with bowel sounds. No peritoneal signs. No palpable organomegaly or masses. Extremities: Normal skin color and turgor. No cyanosis, rash, ulceration, clubbing, or edema. Radial and pedal pulses are 2/4 bilaterally. Neurological: No focal deficits. Strength and sensation are grossly intact. - Labs CBC & Chem 7: 12/19/17 06:47 12/19/17 06:47 Labs: Abnormal Lab Results - Last 24 Hours (Table) 12/19/17 12/20/17 Range/Units 19:56 07:18 POC Glucose (mg/dL) 107 H 170 H (75-99) mg/dL Microbiology - Last 24 Hours (Table) 12/18/17 02:30 Urine Culture - Preliminary Urine,Catheterized Group D Enterococcus Assessment and Plan (1) Ascites Current Visit: Yes Status: Acute Code(s): R18.8 - OTHER ASCITES SNOMED Code(s): 939407254 (2) Liver cirrhosis Current Visit: Yes Status: Acute Code(s): K74.60 - UNSPECIFIED CIRRHOSIS OF LIVER SNOMED Code(s): 24627011 (3) Portal hypertension Current Visit: Yes Status: Acute Code(s): K76.6 - PORTAL HYPERTENSION SNOMED Code(s): 00391083 (4) Hereditary hemochromatosis Current Visit: Yes Status: Acute Code(s): E83.110 - HEREDITARY HEMOCHROMATOSIS SNOMED Code(s): 89137289 Plan: 1. Lasix 40 mg daily. Aldactone 50 mg daily. Low-salt diet. Paracentesis today. Continue lactulose Flagyl and neomycin; hepatic encephalopathy prophylaxis. Assessment and plan a care discussed with Dr. Murguia
[2017-12-20 10:17] LABS: Albumin 2.6 g/dL (3.5-5.0); Calcium 8.4 mg/dL (8.4-10.2); Potassium 4.7 mmol/L (3.5-5.1); Total Protein 5.5 g/dL (6.3-8.2)
[2017-12-20 10:34] LABS: Basophils % (A) 0 %; Eosinophils % (A) 0 %; HCT 37.2 % (34.0-46.0); HGB 12.5 gm/dL (11.4-16.0); Lymphocytes # (A) 0.8 k/uL (1.0-4.8); Lymphocytes % (A) 9 %; MCH 33.2 pg (25.0-35.0); MCHC 33.6 g/dL (31.0-37.0); MCV 98.8 fL (80.0-100.0); Mean Platelet Volume 8.1; Monocytes # (A) 0.6 k/uL (0-1.0); Monocytes % (A) 7 %; Neutrophils % (A) 82 %; Platelet Count 136 k/uL (150-450); RBC 3.76 m/uL (3.80-5.40); RDW 12.4 % (11.5-15.5); WBC 8.6 k/uL (3.8-10.6)
--- NOTE | 2017-12-20 11:02 | P.PN ---
Subjective Progress Note Date: 12/20/17 On-call hospitalist covering for Dr. Baron over the weekend This is a pleasant 62 years old female with past medical history of diabetes mellitus, hypertension, kidney stone peripheral neuropathy, mostly diabetic neuropathy, hemachromatosis , she is a status post paracentesis about 2 weeks and 4 weeks ago at [facility]. She follow up with the gastroenterology team at [facility]. coronary artery disease status post cardiac cath. She presents because of abdominal discomfort and distention a few days duration. Patient she had paracentesis twice in the last month about 2 on 4 weeks ago. Now her abdominal distention is becoming more severe and causing her associated with abdominal pain generalized radiating to the back about 8/10 in severity however patient does not look in distress and pain can be controlled by Tylenol. Associated with nausea and vomiting so many times that patient cannot specify yesterday. However patient has no change in her bowel habits which is chronic constipation, as per patient and daughter at bedside usually she has to go by enema. In the emergency room her CBC and BMP were unremarkable except for mild hyponatremia at 134, INR 1.3, LFTs showing normal ALT, mildly elevated AST at 51 and alkaline phosphatase is days at 2:30. Bilirubin is normal at 1.0. Amylase and lipase are within normal limits. UA is nonsuspicious for infection. Vitals are stable and patient is afebrile however she wasn't tachycardic, currently at 102. Chest x-ray shows atelectasis with no heart failure. EKG shows sinus tachycardia at 161 with QTC [address] deviation, other EKG shows accelerated junctional rhythm. Of note patient's follow-up with Dr. Cervantes the neurologist at [facility] for her generalized weakness and tremor, the do not of investigation for her neuropathy with no specific diagnosis as per daughter and if the investigation will not show much she might be considered for hospice care by the patient and her daughter 12/19/2014 Patient still has ascites although it looks a little bit less today. She had stopped still about 3 bouts of vomiting since yesterday with no blood. However her breathing looks better and is pain is mildly controlled this coming down from 8 to 7/10 in severity. Will add Ultram when necessary. GI team will see the patient for recurrent ascites, as this is the third one in one month. Patient had Jhaveri catheter placed yesterday. And she looks fluid overload so give more diuresis. Above per Dr. Mesa (covering for Dr. Baron) 12/20/2017 Patient seen and examined at the bedside. Patient complains of generalized pain , but states most of her pain is in her abdomen and her back. Patient is scheduled for paracentesis today. Patient states she usually has paracentesis performed every 2 weeks with greater than 10 L of fluid removal. Patient states she has been worked up outpatient by neurology for her weakness and neuropathy. Patient denies vomiting this morning. She does report some nausea. She is afebrile. Heart rate is in the 90s. Blood pressure 127/74. WBC 8.6. Hemoglobin 12.5. Sodium 132. BUN 23. Creatinine 0.89. Indwelling urinary catheter is intact with clear margaux urine. health manager contacted [facility] [employer] who states patients daughter is inquiring about hospice. Dr. Baron feels hospice is appropriate at this time given the patients history and current condition. health manager to order hospice consult. Objective - Vital Signs Vital signs: Vital Signs Temp 98.3 F 12/20/17 07:00 Pulse 94 12/20/17 07:00 Resp 16 12/20/17 07:00 BP 127/74 12/20/17 07:00 Pulse Ox 96 12/20/17 07:00 Intake & Output 12/19/17 12/20/17 12/20/17 18:59 06:59 18:59 Intake Total 240 50 Output Total 500 525 Balance -260 -475 Intake: Oral 240 50 Output: Urine 500 525 Straight 500 Other: Voiding Method Indwelling Catheter Indwelling Catheter - Exam GENERAL: This is a 62-year-old female in no apparent distress at the time of examination. HEENT: Head is atraumatic, normocephalic. Pupils are equal, round, and reactive to light. Mucus membranes of the mouth are moist. Neck is supple. RESPIRATORY: Clear to ausculation, diminished. No wheezes, rales, or rhonchi. No use of accessory muscles. Patient maintaining oxygen saturation greater than 92%. CARDIOVASCULAR: Regular rate and rhythm. S1 and S2 noted. No JVD noted. No S3 or S4 noted. GASTROINTESTINAL: Distended with severe ascites present. Bowel sounds auscultated x 4 quadrants. INTEGUMENTARY: No cyanosis. No jaundice. No rashes noted. No cellulitis noted. EXTREMITIES: 2+ peripheral pulses. No evidence of peripheral edema. No calf tenderness noted. NEUROLOGIC: Cranial nerves II-XII intact. Generalized weakness. PSYCHIATRIC: Awake, alert, and oriented X 3. Appropriate affect. Intact judgement and insight. - Labs CBC & Chem 7: 12/20/17 09:11 12/20/17 09:11 Labs: Abnormal Lab Results - Last 24 Hours (Table) 12/19/17 12/20/17 12/20/17 Range/Units 19:56 07:18 09:11 RBC 3.76 L (3.80-5.40) m/uL Plt Count 136 L (150-450) k/uL Lymphocytes # 0.8 L (1.0-4.8) k/uL Sodium (137-145) mmol/L BUN (7-17) mg/dL Glucose (74-99) mg/dL POC Glucose (mg/dL) 107 H 170 H (75-99) mg/dL AST (14-36) U/L Alkaline Phosphatase (38-126) U/L Total Protein (6.3-8.2) g/dL Albumin (3.5-5.0) g/dL 12/20/17 Range/Units 09:11 RBC (3.80-5.40) m/uL Plt Count (150-450) k/uL Lymphocytes # (1.0-4.8) k/uL Sodium 132 L (137-145) mmol/L BUN 23 H (7-17) mg/dL Glucose 153 H (74-99) mg/dL POC Glucose (mg/dL) (75-99) mg/dL AST 50 H (14-36) U/L Alkaline Phosphatase 271 H (38-126) U/L Total Protein 5.5 L (6.3-8.2) g/dL Albumin 2.6 L (3.5-5.0) g/dL Microbiology - Last 24 Hours (Table) 12/18/17 02:30 Urine Culture - Preliminary Urine,Catheterized Group D Enterococcus Assessment and Plan Plan: ASSESSMENT: Acute decompensated liver failure with ascites History of hereditary hemachromatosis, not awaiting liver transplant as per daughter Diabetes mellitus, on insulin Neuropathy under investigation by neurologist outpatient Hypertension History of kidney stone History of coronary artery disease status post CABG PLAN: GI on consult. Appreciate recommendations and input Patient scheduled for paracentesis today Continue Zofran for nausea and vomiting Fleets enema 1. Patient reports she receives an enema every Wednesday for constipation Continue indwelling urinary catheter Home meds as appropriate Monitor labs Possible hospice consult GI prophylaxis: Pepcid 20 mg IV every 12 hours DVT prophylaxis: Heparin 5000 units subcu every 12 hours Monitor vital signs and address as appropriate Discharge planning: Dependent on patient condition and clinical course Further recommendations pending patient's course Nurse practitioner note has been reviewed by physician. Signing provider agrees with the documented findings, assessment, and plan of care.
[2017-12-20] MEDS: FAMOTIDINE 20 MG/2 ML VIAL IV SCH ×2 (11:08→20:12)
[2017-12-20] MEDS: HEPARIN SODIUM,PORCINE 5,000 UNIT/ML 1 ML VIAL SQ SCH ×2 (11:08→20:12)
[2017-12-20] MEDS: INSULIN DETEMIR 100 UNIT/ML 10 ML VIAL SQ SCH ×2 (11:09→20:33)
[2017-12-20] MEDS: LACTULOSE 20 GM/30 ML CUP PO SCH ×4 (11:09→20:14)
[2017-12-20] MEDS: metroNIDAZOLE 500 MG TAB PO SCH ×3 (11:09→20:13)
[2017-12-20] MEDS: SENNOSIDES-DOCUSATE SODIUM 1 EACH TAB PO SCH ×2 (11:09→20:13)
[2017-12-20] MEDS: NEOMYCIN 500 MG TAB PO SCH ×2 (11:09→22:57)
[2017-12-20 11:47] LABS: Glucose,Whole Blood 156 mg/dL (75-99)
[2017-12-20] MEDS: MULTIVITAMINS, THERA 1 EACH TAB PO SCH (12:35)
--- NOTE | 2017-12-20 16:35 | US ---
EXAMINATION TYPE: US paracentesis abd w/image DATE OF EXAM: 12/20/2017 COMPARISON: NONE HISTORY: Ascites. PROCEDURE: Maximal barrier technique was utilized. The skin overlying a suitable pocket of fluid was localized with ultrasound and the overlying skin was prepped and draped. Ultrasound was utilized with sterile technique. Lidocaine was used for local anesthesia and a skin cr made with a scalpel. Catheter was advanced under direct ultrasound guidance into a suitable pocket of fluid and approximately 12.8 lite rs of serous fluid were removed. Catheter was withdrawn and hemostasis achieved. There is no immedi ate complication; the patient is discharged in stable condition. IMPRESSION: STATUS POST ULTRASOUND GUIDED PARACENTESIS FOR PALLIATION OF ASCITES. THIS PROCEDURE WA S PERFORMED BY THE UNDERSIGNED. Specimen sent for laboratory analysis.
[2017-12-20] MEDS: LEVOFLOXACIN 500MG-D5W PMX 500 MG in DEXTROSE/WATER 1 100ML.BAG IVPB SCH (17:30)
[2017-12-20] MEDS: FUROSEMIDE 40 MG TAB PO SCH (17:30)
[2017-12-20] MEDS: SPIRONOLACTONE 25 MG TAB PO SCH (17:31)
[2017-12-20 17:33] LABS: Glucose,Whole Blood 161 mg/dL (75-99)
[2017-12-20] MEDS: ALBUMIN HUMAN 25% 50 ML in EMPTY BAG 1 BAG IVPB SCH ×4 (19:06→22:56)
[2017-12-20] MEDS: diphenhydrAMINE 25 MG CAP PO SCH (20:13)
[2017-12-20 20:42] LABS: Glucose,Whole Blood 175 mg/dL (75-99)
[2017-12-21] MEDS: ALBUMIN HUMAN 25% 50 ML in EMPTY BAG 1 BAG IVPB SCH ×2 (00:58→02:37)
[2017-12-21] MEDS: HYDROmorphone 1 MG/ML 1 ML SYRINGE IVP PRN ×2 (02:52→09:03)
[2017-12-21 08:14] LABS: Basophils % (A) 0 %; Eosinophils # (A) 0.1 k/uL (0-0.7); Eosinophils % (A) 1 %; HGB 11.5 gm/dL (11.4-16.0); Lymphocytes # (A) 0.8 k/uL (1.0-4.8); Lymphocytes % (A) 12 %; MCH 33.9 pg (25.0-35.0); MCHC 34.9 g/dL (31.0-37.0); MCV 97.3 fL (80.0-100.0); Mean Platelet Volume 7.8; Monocytes # (A) 0.6 k/uL (0-1.0); Monocytes % (A) 9 %; Neutrophils # (A) 5.1 k/uL (1.3-7.7); Neutrophils % (A) 76 %; Platelet Count 114 k/uL (150-450); RBC 3.39 m/uL (3.80-5.40); RDW 12.3 % (11.5-15.5); WBC 6.7 k/uL (3.8-10.6)
[2017-12-21 08:15] LABS: Glucose,Whole Blood 61 mg/dL (75-99)
--- NOTE | 2017-12-21 08:18 | US ---
Limited abdomen ultrasound HISTORY: Ascites, preprocedure planning Limited abdomen ultrasound performed. There is large amount of ascites present. IMPRESSIONS: Ascites
[2017-12-21 08:29] LABS: Potassium 4.2 mmol/L (3.5-5.1)
[2017-12-21 08:30] LABS: ALT 28 U/L (9-52); AST 34 U/L (14-36); Albumin 2.9 g/dL (3.5-5.0); Alkaline Phosphatase 186 U/L (38-126); Anion Gap 8 mmol/L; Blood Urea Nitrogen 18 mg/dL (7-17); Calcium 8.6 mg/dL (8.4-10.2); Carbon Dioxide 28 mmol/L (22-30); Chloride 99 mmol/L (98-107); Glucose 57 mg/dL (74-99); Sodium 135 mmol/L (137-145); Total Bilirubin 1.2 mg/dL (0.2-1.3); Total Protein 5.2 g/dL (6.3-8.2)
[2017-12-21 08:47] LABS: Glucose,Whole Blood 83 mg/dL (75-99)
[2017-12-21] MEDS: INSULIN DETEMIR 100 UNIT/ML 10 ML VIAL SQ SCH ×2 (08:52→21:44)
[2017-12-21] MEDS: LACTULOSE 20 GM/30 ML CUP PO SCH ×4 (09:04→21:45)
[2017-12-21] MEDS: NEOMYCIN 500 MG TAB PO SCH ×2 (09:04→21:44)
[2017-12-21] MEDS: MULTIVITAMINS, THERA 1 EACH TAB PO SCH (09:04)
[2017-12-21] MEDS: SENNOSIDES-DOCUSATE SODIUM 1 EACH TAB PO SCH ×2 (09:04→21:44)
[2017-12-21] MEDS: metroNIDAZOLE 500 MG TAB PO SCH ×3 (09:04→21:44)
[2017-12-21] MEDS: ASPIRIN 81 MG PO SCH (09:04)
[2017-12-21] MEDS: FUROSEMIDE 40 MG TAB PO SCH (09:04)
[2017-12-21] MEDS: HEPARIN SODIUM,PORCINE 5,000 UNIT/ML 1 ML VIAL SQ SCH ×2 (09:04→21:45)
[2017-12-21] MEDS: FAMOTIDINE 20 MG/2 ML VIAL IV SCH (09:04)
[2017-12-21] MEDS: SPIRONOLACTONE 25 MG TAB PO SCH (09:04)
--- NOTE | 2017-12-21 09:45 | P.PN ---
Subjective Progress Note Date: 12/21/17 Principal diagnosis: Ascites history of liver cirrhosis hereditary hemochromatosis Status post paracentesis yesterday 12 liters removed received post-paracentesis albumin. Feels better this morning. Afebrile. BUN 18. Creatinine 0.7. Objective - Vital Signs Vital signs: Vital Signs Temp 98.7 F 12/21/17 07:30 Pulse 98 12/21/17 07:30 Resp 16 12/21/17 07:30 BP 133/75 12/21/17 07:30 Pulse Ox 96 12/21/17 07:30 Intake & Output 12/20/17 12/21/17 12/21/17 18:59 06:59 18:59 Intake Total 0 520 Output Total 1050 Balance 0 -1050 520 Intake: Oral 0 520 Output: Urine 1050 Other: Voiding Method Indwelling Catheter Indwelling Catheter # Bowel Movements 1 - Exam General appearance: The patient is alert, oriented, in no acute distress. HET: Head is normocephalic and atraumatic. Pupils are equal and reactive. Oropharynx is clear without lesions. Neck: Supple without lymphadenopathy. Trachea midline. Heart: S1 S2. Regular rate and rhythm. Lungs: No crackles or wheezes are heard. Abdomen: Soft, nontender, mildly distended with mild ascites with bowel sounds. No peritoneal signs. No palpable organomegaly or masses. Extremities: Normal skin color and turgor. No cyanosis, rash, ulceration, clubbing, or edema. Radial and pedal pulses are 2/4 bilaterally. Neurological: No focal deficits. Strength and sensation are grossly intact. - Labs CBC & Chem 7: 12/21/17 07:17 12/21/17 07:17 Labs: Abnormal Lab Results - Last 24 Hours (Table) 12/20/17 12/20/17 12/20/17 Range/Units 09:11 09:11 11:35 RBC 3.76 L (3.80-5.40) m/uL Hct (34.0-46.0) % Plt Count 136 L (150-450) k/uL Lymphocytes # 0.8 L (1.0-4.8) k/uL Sodium 132 L (137-145) mmol/L BUN 23 H (7-17) mg/dL Glucose 153 H (74-99) mg/dL POC Glucose (mg/dL) 156 H (75-99) mg/dL AST 50 H (14-36) U/L Alkaline Phosphatase 271 H (38-126) U/L Total Protein 5.5 L (6.3-8.2) g/dL Albumin 2.6 L (3.5-5.0) g/dL 12/20/17 12/20/17 12/21/17 Range/Units 17:19 20:33 07:17 RBC 3.39 L (3.80-5.40) m/uL Hct 33.0 L (34.0-46.0) % Plt Count 114 L (150-450) k/uL Lymphocytes # 0.8 L (1.0-4.8) k/uL Sodium (137-145) mmol/L BUN (7-17) mg/dL Glucose (74-99) mg/dL POC Glucose (mg/dL) 161 H 175 H (75-99) mg/dL AST (14-36) U/L Alkaline Phosphatase (38-126) U/L Total Protein (6.3-8.2) g/dL Albumin (3.5-5.0) g/dL 12/21/17 12/21/17 Range/Units 07:17 07:55 RBC (3.80-5.40) m/uL Hct (34.0-46.0) % Plt Count (150-450) k/uL Lymphocytes # (1.0-4.8) k/uL Sodium 135 L (137-145) mmol/L BUN 18 H (7-17) mg/dL Glucose 57 L (74-99) mg/dL POC Glucose (mg/dL) 61 L (75-99) mg/dL AST (14-36) U/L Alkaline Phosphatase 186 H (38-126) U/L Total Protein 5.2 L (6.3-8.2) g/dL Albumin 2.9 L (3.5-5.0) g/dL Microbiology - Last 24 Hours (Table) 12/18/17 02:30 Urine Culture - Final Urine,Catheterized Enterococcus faecalis Assessment and Plan (1) Ascites Current Visit: Yes Status: Acute Code(s): R18.8 - OTHER ASCITES SNOMED Code(s): 125242710 (2) Liver cirrhosis Current Visit: Yes Status: Acute Code(s): K74.60 - UNSPECIFIED CIRRHOSIS OF LIVER SNOMED Code(s): 37751872 (3) Portal hypertension Current Visit: Yes Status: Acute Code(s): K76.6 - PORTAL HYPERTENSION SNOMED Code(s): 77358973 (4) Hereditary hemochromatosis Current Visit: Yes Status: Acute Code(s): E83.110 - HEREDITARY HEMOCHROMATOSIS SNOMED Code(s): 31776308 Plan: 1. Lasix 40 mg daily. Aldactone 50 mg daily. Neomycin 1 g twice daily. Flagyl 500 mg 3 times a day. Low-salt diet. Paracentesis scheduled every 2 weeks however patient needs to be off of aspirin 7 days prior to paracentesis if it's to be continued after discharge. Assessment and plan a care discussed with Dr. Murguia
--- NOTE | 2017-12-21 10:01 | P.PN ---
Subjective Progress Note Date: 12/21/17 On-call hospitalist covering for Dr. Baron over the weekend This is a pleasant 62 years old female with past medical history of diabetes mellitus, hypertension, kidney stone peripheral neuropathy, mostly diabetic neuropathy, hemachromatosis , she is a status post paracentesis about 2 weeks and 4 weeks ago at [facility]. She follow up with the gastroenterology team at [facility]. coronary artery disease status post cardiac cath. She presents because of abdominal discomfort and distention a few days duration. Patient she had paracentesis twice in the last month about 2 on 4 weeks ago. Now her abdominal distention is becoming more severe and causing her associated with abdominal pain generalized radiating to the back about 8/10 in severity however patient does not look in distress and pain can be controlled by Tylenol. Associated with nausea and vomiting so many times that patient cannot specify yesterday. However patient has no change in her bowel habits which is chronic constipation, as per patient and daughter at bedside usually she has to go by enema. In the emergency room her CBC and BMP were unremarkable except for mild hyponatremia at 134, INR 1.3, LFTs showing normal ALT, mildly elevated AST at 51 and alkaline phosphatase is days at 2:30. Bilirubin is normal at 1.0. Amylase and lipase are within normal limits. UA is nonsuspicious for infection. Vitals are stable and patient is afebrile however she wasn't tachycardic, currently at 102. Chest x-ray shows atelectasis with no heart failure. EKG shows sinus tachycardia at 161 with QTC [address] deviation, other EKG shows accelerated junctional rhythm. Of note patient's follow-up with Dr. Cervantes the neurologist at [facility] for her generalized weakness and tremor, the do not of investigation for her neuropathy with no specific diagnosis as per daughter and if the investigation will not show much she might be considered for hospice care by the patient and her daughter 12/19/2014 Patient still has ascites although it looks a little bit less today. She had stopped still about 3 bouts of vomiting since yesterday with no blood. However her breathing looks better and is pain is mildly controlled this coming down from 8 to 7/10 in severity. Will add Ultram when necessary. GI team will see the patient for recurrent ascites, as this is the third one in one month. Patient had Jhaveri catheter placed yesterday. And she looks fluid overload so give more diuresis. Above per Dr. Mesa (covering for Dr. Baron) 12/20/2017 Patient seen and examined at the bedside. Patient complains of generalized pain , but states most of her pain is in her abdomen and her back. Patient is scheduled for paracentesis today. Patient states she usually has paracentesis performed every 2 weeks with greater than 10 L of fluid removal. Patient states she has been worked up outpatient by neurology for her weakness and neuropathy. Patient denies vomiting this morning. She does report some nausea. She is afebrile. Heart rate is in the 90s. Blood pressure 127/74. WBC 8.6. Hemoglobin 12.5. Sodium 132. BUN 23. Creatinine 0.89. Indwelling urinary catheter is intact with clear margaux urine. sales communications manager contacted [employer] who states patients daughter is inquiring about hospice. Dr. Baron feels hospice is appropriate at this time given the patients history and current condition. sales communications manager to order hospice consult. 12/21/2017 Patient seen and examined at the bedside on rounds with Dr. Baron. Patient is awake and alert. She underwent paracentesis yesterday with removal of 12 L of fluid. Patient's abdomen remains distended but is much softer today. Patients urine culture is positive for Enterococcus faecalis. The patient was started on Levaquin. Dr. Baron discussed possibility of hospice with the patient at the bedside. Patient states she would like to discuss her condition with Dr. Cervantes, her neurologist at [facility]. She is open to speaking with hospice today. We will order hospice consult. Objective - Vital Signs Vital signs: Vital Signs Temp 98.7 F 12/21/17 07:30 Pulse 98 12/21/17 07:30 Resp 16 12/21/17 07:30 BP 133/75 12/21/17 07:30 Pulse Ox 96 12/21/17 07:30 Intake & Output 12/20/17 12/21/17 12/21/17 18:59 06:59 18:59 Intake Total 0 520 Output Total 1050 Balance 0 -1050 520 Intake: Oral 0 520 Output: Urine 1050 Other: Voiding Method Indwelling Catheter Indwelling Catheter # Bowel Movements 1 - Exam GENERAL: This is a 62-year-old female in no apparent distress at the time of examination. HEENT: Head is atraumatic, normocephalic. Pupils are equal, round, and reactive to light. Mucus membranes of the mouth are moist. Neck is supple. RESPIRATORY: Clear to ausculation, diminished. No wheezes, rales, or rhonchi. No use of accessory muscles. Patient maintaining oxygen saturation greater than 92%. CARDIOVASCULAR: Regular rate and rhythm. S1 and S2 noted. No JVD noted. No S3 or S4 noted. GASTROINTESTINAL: Distended ascites present, improved from yesterday. Abdomen soft. Bowel sounds auscultated x 4 quadrants. INTEGUMENTARY: No cyanosis. No jaundice. No rashes noted. No cellulitis noted. EXTREMITIES: 2+ peripheral pulses. No evidence of peripheral edema. No calf tenderness noted. NEUROLOGIC: Cranial nerves II-XII intact. Generalized weakness. PSYCHIATRIC: Awake, alert, and oriented X 3. Appropriate affect. - Labs CBC & Chem 7: 12/21/17 07:17 12/21/17 07:17 Labs: Abnormal Lab Results - Last 24 Hours (Table) 12/20/17 12/20/17 12/20/17 Range/Units 09:11 09:11 11:35 RBC 3.76 L (3.80-5.40) m/uL Hct (34.0-46.0) % Plt Count 136 L (150-450) k/uL Lymphocytes # 0.8 L (1.0-4.8) k/uL Sodium 132 L (137-145) mmol/L BUN 23 H (7-17) mg/dL Glucose 153 H (74-99) mg/dL POC Glucose (mg/dL) 156 H (75-99) mg/dL AST 50 H (14-36) U/L Alkaline Phosphatase 271 H (38-126) U/L Total Protein 5.5 L (6.3-8.2) g/dL Albumin 2.6 L (3.5-5.0) g/dL 12/20/17 12/20/17 12/21/17 Range/Units 17:19 20:33 07:17 RBC 3.39 L (3.80-5.40) m/uL Hct 33.0 L (34.0-46.0) % Plt Count 114 L (150-450) k/uL Lymphocytes # 0.8 L (1.0-4.8) k/uL Sodium (137-145) mmol/L BUN (7-17) mg/dL Glucose (74-99) mg/dL POC Glucose (mg/dL) 161 H 175 H (75-99) mg/dL AST (14-36) U/L Alkaline Phosphatase (38-126) U/L Total Protein (6.3-8.2) g/dL Albumin (3.5-5.0) g/dL 12/21/17 12/21/17 Range/Units 07:17 07:55 RBC (3.80-5.40) m/uL Hct (34.0-46.0) % Plt Count (150-450) k/uL Lymphocytes # (1.0-4.8) k/uL Sodium 135 L (137-145) mmol/L BUN 18 H (7-17) mg/dL Glucose 57 L (74-99) mg/dL POC Glucose (mg/dL) 61 L (75-99) mg/dL AST (14-36) U/L Alkaline Phosphatase 186 H (38-126) U/L Total Protein 5.2 L (6.3-8.2) g/dL Albumin 2.9 L (3.5-5.0) g/dL Microbiology - Last 24 Hours (Table) 12/18/17 02:30 Urine Culture - Final Urine,Catheterized Enterococcus faecalis Assessment and Plan Plan: ASSESSMENT: Acute decompensated liver failure Ascites, secondary to above, status post paracentesis with removal of 12 L fluid History of hereditary hemachromatosis, not awaiting liver transplant as per daughter Urinary tract infection, present on admission, culture positive for Enterococcus faecalis Diabetes mellitus, on insulin Neuropathy under investigation by neurologist outpatient Hypertension History of kidney stone History of coronary artery disease status post CABG PLAN: GI on consult. Appreciate recommendations and input Patient scheduled for paracentesis every 2 weeks per GI. Patient must be off aspirin for 7 days prior to paracentesis per GI service. Continue Zofran for nausea and vomiting Continue indwelling urinary catheter Continue Levaquin Home meds as appropriate Monitor labs GI prophylaxis: Pepcid 20 mg IV every 12 hours DVT prophylaxis: Heparin 5000 units subcu every 12 hours Monitor vital signs and address as appropriate Discharge planning: Dependent on patient condition and clinical course Will place order for hospice consult Further recommendations pending patient's course Nurse practitioner note has been reviewed by physician. Signing provider agrees with the documented findings, assessment, and plan of care.
[2017-12-21 12:31] LABS: Glucose,Whole Blood 132 mg/dL (75-99)
[2017-12-21] MEDS: traMADol 50 MG TAB PO SCH ×3 (13:37→21:45)
[2017-12-21] MEDS: LEVOFLOXACIN 500MG-D5W PMX 500 MG in DEXTROSE/WATER 1 100ML.BAG IVPB SCH (16:41)
[2017-12-21 17:22] LABS: Glucose,Whole Blood 215 mg/dL (75-99)
[2017-12-21 20:10] LABS: Glucose,Whole Blood 225 mg/dL (75-99)
[2017-12-21] MEDS: diphenhydrAMINE 25 MG CAP PO SCH (21:44)
[2017-12-21] MEDS: FAMOTIDINE 20 MG TAB PO SCH (21:45)
[2017-12-22] MEDS: ACETAMINOPHEN TAB 325 MG TAB PO PRN (02:17)
[2017-12-22 07:01] LABS: Glucose,Whole Blood 157 mg/dL (75-99)
[2017-12-22] MEDS: FUROSEMIDE 40 MG TAB PO SCH (08:54)
[2017-12-22] MEDS: NEOMYCIN 500 MG TAB PO SCH ×2 (08:54→20:38)
[2017-12-22] MEDS: ASPIRIN 81 MG PO SCH (08:54)
[2017-12-22] MEDS: SENNOSIDES-DOCUSATE SODIUM 1 EACH TAB PO SCH ×2 (08:54→20:37)
[2017-12-22] MEDS: MULTIVITAMINS, THERA 1 EACH TAB PO SCH (08:54)
[2017-12-22] MEDS: metroNIDAZOLE 500 MG TAB PO SCH ×3 (08:54→20:37)
[2017-12-22] MEDS: traMADol 50 MG TAB PO SCH ×4 (08:55→20:37)
[2017-12-22] MEDS: SPIRONOLACTONE 25 MG TAB PO SCH (08:55)
[2017-12-22] MEDS: HEPARIN SODIUM,PORCINE 5,000 UNIT/ML 1 ML VIAL SQ SCH ×2 (08:56→20:37)
[2017-12-22] MEDS: INSULIN DETEMIR 100 UNIT/ML 10 ML VIAL SQ SCH ×3 (08:56→20:38)
[2017-12-22] MEDS: FAMOTIDINE 20 MG TAB PO SCH ×2 (08:56→20:37)
[2017-12-22] MEDS: LACTULOSE 20 GM/30 ML CUP PO SCH ×4 (08:56→20:38)
--- NOTE | 2017-12-22 09:02 | P.PN ---
Subjective Progress Note Date: 12/22/17 Principal diagnosis: Ascites history of liver cirrhosis hereditary hemochromatosis Status post paracentesis 12 liters removed received post-paracentesis albumin. Reports mild right-sided abdominal pain. Afebrile. Hospice consulted. Objective - Vital Signs Vital signs: Vital Signs Temp 98.2 F 12/22/17 07:00 Pulse 89 12/22/17 07:00 Resp 14 12/22/17 07:00 BP 100/60 12/22/17 07:00 Pulse Ox 95 12/22/17 07:00 Intake & Output 12/21/17 12/22/17 12/22/17 18:59 06:59 18:59 Intake Total 1062 500 Output Total 500 Balance 562 500 Weight 86.183 kg Intake: Oral 1062 500 Output: Urine 500 Other: Voiding Method Indwelling Catheter Indwelling Catheter # Voids 500 - Exam General appearance: The patient is alert, oriented, in no acute distress. HET: Head is normocephalic and atraumatic. Pupils are equal and reactive. Oropharynx is clear without lesions. Neck: Supple without lymphadenopathy. Trachea midline. Heart: S1 S2. Regular rate and rhythm. Lungs: No crackles or wheezes are heard. Abdomen: Soft, mildly distended with mild ascites with bowel sounds. Mild tenderness to the right side of the abdomen. No peritoneal signs. No palpable organomegaly or masses. Extremities: Normal skin color and turgor. No cyanosis, rash, ulceration, clubbing, or edema. Radial and pedal pulses are 2/4 bilaterally. Neurological: No focal deficits. Strength and sensation are grossly intact. - Labs CBC & Chem 7: 12/21/17 07:17 12/21/17 07:17 Labs: Abnormal Lab Results - Last 24 Hours (Table) 12/21/17 12/21/17 12/21/17 Range/Units 12:19 17:11 19:58 POC Glucose (mg/dL) 132 H 215 H 225 H (75-99) mg/dL 12/22/17 Range/Units 06:44 POC Glucose (mg/dL) 157 H (75-99) mg/dL Assessment and Plan (1) Ascites Current Visit: Yes Status: Acute Code(s): R18.8 - OTHER ASCITES SNOMED Code(s): 480886869 (2) Liver cirrhosis Current Visit: Yes Status: Acute Code(s): K74.60 - UNSPECIFIED CIRRHOSIS OF LIVER SNOMED Code(s): 35778481 (3) Portal hypertension Current Visit: Yes Status: Acute Code(s): K76.6 - PORTAL HYPERTENSION SNOMED Code(s): 41835692 (4) Hereditary hemochromatosis Current Visit: Yes Status: Acute Code(s): E83.110 - HEREDITARY HEMOCHROMATOSIS SNOMED Code(s): 39608949 Plan: 1. Lasix 40 mg daily. Aldactone 50 mg daily. Neomycin 1 g twice daily. Flagyl 500 mg 3 times a day. Low-salt diet. Paracentesis scheduled every 2 weeks however patient needs to be off of aspirin 7 days prior to paracentesis if it's to be continued after discharge. Hospice consult. Follow up in GI office in 3 weeks. Assessment and plan a care discussed with Dr. Murguia
--- NOTE | 2017-12-22 09:30 | P.PN ---
Subjective Progress Note Date: 12/22/17 On-call hospitalist covering for Dr. Baron over the weekend This is a pleasant 62 years old female with past medical history of diabetes mellitus, hypertension, kidney stone peripheral neuropathy, mostly diabetic neuropathy, hemachromatosis , she is a status post paracentesis about 2 weeks and 4 weeks ago at [facility]. She follow up with the gastroenterology team at [facility]. coronary artery disease status post cardiac cath. She presents because of abdominal discomfort and distention a few days duration. Patient she had paracentesis twice in the last month about 2 on 4 weeks ago. Now her abdominal distention is becoming more severe and causing her associated with abdominal pain generalized radiating to the back about 8/10 in severity however patient does not look in distress and pain can be controlled by Tylenol. Associated with nausea and vomiting so many times that patient cannot specify yesterday. However patient has no change in her bowel habits which is chronic constipation, as per patient and daughter at bedside usually she has to go by enema. In the emergency room her CBC and BMP were unremarkable except for mild hyponatremia at 134, INR 1.3, LFTs showing normal ALT, mildly elevated AST at 51 and alkaline phosphatase is days at 2:30. Bilirubin is normal at 1.0. Amylase and lipase are within normal limits. UA is nonsuspicious for infection. Vitals are stable and patient is afebrile however she wasn't tachycardic, currently at 102. Chest x-ray shows atelectasis with no heart failure. EKG shows sinus tachycardia at 161 with QTC [address] deviation, other EKG shows accelerated junctional rhythm. Of note patient's follow-up with Dr. Cervantes the neurologist at [facility] for her generalized weakness and tremor, the do not of investigation for her neuropathy with no specific diagnosis as per daughter and if the investigation will not show much she might be considered for hospice care by the patient and her daughter 12/19/2014 Patient still has ascites although it looks a little bit less today. She had stopped still about 3 bouts of vomiting since yesterday with no blood. However her breathing looks better and is pain is mildly controlled this coming down from 8 to 7/10 in severity. Will add Ultram when necessary. GI team will see the patient for recurrent ascites, as this is the third one in one month. Patient had Jhaveri catheter placed yesterday. And she looks fluid overload so give more diuresis. Above per Dr. Mesa (covering for Dr. Baron) 12/20/2017 Patient seen and examined at the bedside. Patient complains of generalized pain , but states most of her pain is in her abdomen and her back. Patient is scheduled for paracentesis today. Patient states she usually has paracentesis performed every 2 weeks with greater than 10 L of fluid removal. Patient states she has been worked up outpatient by neurology for her weakness and neuropathy. Patient denies vomiting this morning. She does report some nausea. She is afebrile. Heart rate is in the 90s. Blood pressure 127/74. WBC 8.6. Hemoglobin 12.5. Sodium 132. BUN 23. Creatinine 0.89. Indwelling urinary catheter is intact with clear margaux urine. ed manager contacted [employer] who states patients daughter is inquiring about hospice. Dr. Baron feels hospice is appropriate at this time given the patients history and current condition. ed manager to order hospice consult. 12/21/2017 Patient seen and examined at the bedside on rounds with Dr. Baron. Patient is awake and alert. She underwent paracentesis yesterday with removal of 12 L of fluid. Patient's abdomen remains distended but is much softer today. Patients urine culture is positive for Enterococcus faecalis. The patient was started on Levaquin. Dr. Baron discussed possibility of hospice with the patient at the bedside. Patient states she would like to discuss her condition with Dr. Cervantes, her neurologist at [facility]. She is open to speaking with hospice today. We will order hospice consult. 12/22/2017 Patient seen and examined at the bedside on rounds with Dr. Baron. Patient is awake and alert. She reports mild abdominal discomfort. She also reports some shortness of breath this morning. She states her appetite is fair. Denies nausea or vomiting. Vital signs are stable. Patients [facility] is [facility] today to complete financial assessment. Objective - Vital Signs Vital signs: Vital Signs Temp 98.2 F 12/22/17 07:00 Pulse 89 12/22/17 07:00 Resp 14 12/22/17 07:00 BP 100/60 12/22/17 07:00 Pulse Ox 95 12/22/17 07:00 Intake & Output 12/21/17 12/22/17 12/22/17 18:59 06:59 18:59 Intake Total 1062 500 Output Total 500 Balance 562 500 Weight 86.183 kg Intake: Oral 1062 500 Output: Urine 500 Other: Voiding Method Indwelling Catheter Indwelling Catheter # Voids 500 - Exam GENERAL: This is a 62-year-old female in no apparent distress at the time of examination. HEENT: Head is atraumatic, normocephalic. Pupils are equal, round, and reactive to light. Mucus membranes of the mouth are moist. Neck is supple. RESPIRATORY: Clear to auscultation, diminished. No wheezes, rales, or rhonchi. No use of accessory muscles. Patient maintaining oxygen saturation greater than 92%. CARDIOVASCULAR: Regular rate and rhythm. S1 and S2 noted. No JVD noted. No S3 or S4 noted. GASTROINTESTINAL: Distended ascites present. Abdomen soft. Bowel sounds auscultated x 4 quadrants. INTEGUMENTARY: No cyanosis. No jaundice. No rashes noted. No cellulitis noted. EXTREMITIES: 2+ peripheral pulses. No evidence of peripheral edema. No calf tenderness noted. NEUROLOGIC: Cranial nerves II-XII intact. Generalized weakness. PSYCHIATRIC: Awake, alert, and oriented X 3. Appropriate affect. - Labs CBC & Chem 7: 12/21/17 07:17 12/21/17 07:17 Labs: Abnormal Lab Results - Last 24 Hours (Table) 12/21/17 12/21/17 12/21/17 Range/Units 12:19 17:11 19:58 POC Glucose (mg/dL) 132 H 215 H 225 H (75-99) mg/dL 12/22/17 Range/Units 06:44 POC Glucose (mg/dL) 157 H (75-99) mg/dL Assessment and Plan Plan: ASSESSMENT: Acute decompensated liver failure Ascites, secondary to above, status post paracentesis with removal of 12 L fluid History of hereditary hemachromatosis, not awaiting liver transplant as per daughter Urinary tract infection, present on admission, culture positive for Enterococcus faecalis Diabetes mellitus, on insulin Neuropathy under investigation by neurologist outpatient Hypertension History of kidney stone History of coronary artery disease status post CABG PLAN: GI on consult. Appreciate recommendations and input Patient scheduled for paracentesis every 2 weeks per GI. Patient must be off aspirin for 7 days prior to paracentesis per GI service. Continue Zofran for nausea and vomiting Continue indwelling urinary catheter Continue Levaquin Home meds as appropriate Monitor labs GI prophylaxis: Pepcid 20 mg IV every 12 hours DVT prophylaxis: Heparin 5000 units subcu every 12 hours Monitor vital signs and address as appropriate Further recommendations pending patient's course Patients family is going to [facility] today to begin financial assessment Once hospice home arrangements are finalized, the patient may be discharged Nurse practitioner note has been reviewed by physician. Signing provider agrees with the documented findings, assessment, and plan of care.
[2017-12-22 12:04] LABS: Glucose,Whole Blood 206 mg/dL (75-99)
[2017-12-22] MEDS: LEVOFLOXACIN 500 MG TAB PO SCH (15:42)
[2017-12-22 17:18] LABS: Glucose,Whole Blood 271 mg/dL (75-99)
[2017-12-22 20:13] LABS: Glucose,Whole Blood 262 mg/dL (75-99)
[2017-12-22] MEDS: diphenhydrAMINE 25 MG CAP PO SCH (20:37)
[2017-12-23 07:19] LABS: Glucose,Whole Blood 135 mg/dL (75-99)
[2017-12-23] MEDS ORDERED: MORPHINE SULFATE 2 MG/ML SYRINGE IVP PRN (07:59)
[2017-12-23] MEDS: INSULIN DETEMIR 100 UNIT/ML 10 ML VIAL SQ SCH (08:48)
[2017-12-23] MEDS: traMADol 50 MG TAB PO SCH ×3 (08:49→17:00)
[2017-12-23] MEDS: LACTULOSE 20 GM/30 ML CUP PO SCH ×2 (08:49→13:20)
[2017-12-23] MEDS: NEOMYCIN 500 MG TAB PO SCH (08:49)
[2017-12-23] MEDS: SPIRONOLACTONE 25 MG TAB PO SCH (08:49)
[2017-12-23] MEDS: SENNOSIDES-DOCUSATE SODIUM 1 EACH TAB PO SCH (08:49)
[2017-12-23] MEDS: FUROSEMIDE 40 MG TAB PO SCH (08:49)
[2017-12-23] MEDS: HEPARIN SODIUM,PORCINE 5,000 UNIT/ML 1 ML VIAL SQ SCH (08:49)
[2017-12-23] MEDS: ASPIRIN 81 MG PO SCH (08:50)
[2017-12-23] MEDS: metroNIDAZOLE 500 MG TAB PO SCH ×2 (08:51→16:16)
[2017-12-23] MEDS: FAMOTIDINE 20 MG TAB PO SCH (08:51)
--- NOTE | 2017-12-23 10:12 | P.DS ---
Providers Date of admission: 12/19/17 20:12 Expected date of discharge: 12/23/17 Attending physician: Matias Baron Consults: 12/18/17 04:13 Consult Physician Routine Consulting Provider: Jon Cee Consult Reason/Comments: Paracentesis therapeutic Do you want consulting provider notified?: Yes Primary care physician: Matias Baron [facility] Course: On-call hospitalist covering for Dr. Baron over the weekend This is a pleasant 62 years old female with past medical history of diabetes mellitus, hypertension, kidney stone peripheral neuropathy, mostly diabetic neuropathy, hemachromatosis , she is a status post paracentesis about 2 weeks and 4 weeks ago at [facility]. She follow up with the gastroenterology team at [facility]. coronary artery disease status post cardiac cath. She presents because of abdominal discomfort and distention a few days duration. Patient she had paracentesis twice in the last month about 2 on 4 weeks ago. Now her abdominal distention is becoming more severe and causing her associated with abdominal pain generalized radiating to the back about 8/10 in severity however patient does not look in distress and pain can be controlled by Tylenol. Associated with nausea and vomiting so many times that patient cannot specify yesterday. However patient has no change in her bowel habits which is chronic constipation, as per patient and daughter at bedside usually she has to go by enema. In the emergency room her CBC and BMP were unremarkable except for mild hyponatremia at 134, INR 1.3, LFTs showing normal ALT, mildly elevated AST at 51 and alkaline phosphatase is days at 2:30. Bilirubin is normal at 1.0. Amylase and lipase are within normal limits. UA is nonsuspicious for infection. Vitals are stable and patient is afebrile however she wasn't tachycardic, currently at 102. Chest x-ray shows atelectasis with no heart failure. EKG shows sinus tachycardia at 161 with QTC [address] deviation, other EKG shows accelerated junctional rhythm. Of note patient's follow-up with Dr. Cervantes the neurologist at [facility] for her generalized weakness and tremor, the do not of investigation for her neuropathy with no specific diagnosis as per daughter and if the investigation will not show much she might be considered for hospice care by the patient and her daughter 12/19/2014 Patient still has ascites although it looks a little bit less today. She had stopped still about 3 bouts of vomiting since yesterday with no blood. However her breathing looks better and is pain is mildly controlled this coming down from 8 to 7/10 in severity. Will add Ultram when necessary. GI team will see the patient for recurrent ascites, as this is the third one in one month. Patient had Jhaveri catheter placed yesterday. And she looks fluid overload so give more diuresis. Above per Dr. Mesa (covering for Dr. Baron) 12/20/2017 Patient seen and examined at the bedside. Patient complains of generalized pain , but states most of her pain is in her abdomen and her back. Patient is scheduled for paracentesis today. Patient states she usually has paracentesis performed every 2 weeks with greater than 10 L of fluid removal. Patient states she has been worked up outpatient by neurology for her weakness and neuropathy. Patient denies vomiting this morning. She does report some nausea. She is afebrile. Heart rate is in the 90s. Blood pressure 127/74. WBC 8.6. Hemoglobin 12.5. Sodium 132. BUN 23. Creatinine 0.89. Indwelling urinary catheter is intact with clear margaux urine. pension fund manager contacted [employer] who states patients daughter is inquiring about hospice. Dr. Baron feels hospice is appropriate at this time given the patients history and current condition. pension fund manager to order hospice consult. 12/21/2017 Patient seen and examined at the bedside on rounds with Dr. Baron. Patient is awake and alert. She underwent paracentesis yesterday with removal of 12 L of fluid. Patient's abdomen remains distended but is much softer today. Patients urine culture is positive for Enterococcus faecalis. The patient was started on Levaquin. Dr. Baron discussed possibility of hospice with the patient at the bedside. Patient states she would like to discuss her condition with Dr. Cervantes, her neurologist at [facility]. She is open to speaking with hospice today. We will order hospice consult. 12/22/2017 Patient seen and examined at the bedside on rounds with Dr. Baron. Patient is awake and alert. She reports mild abdominal discomfort. She also reports some shortness of breath this morning. She states her appetite is fair. Denies nausea or vomiting. Vital signs are stable. Patients family is going to [facility] today to complete financial assessment. 12/23/2017 Patient states she is having a lot of back pain and the Ultram is not strong enough for her. She also reports difficulty sleeping and requesting sleeping pill at night. Her appetite is fair. Jhaveri catheter remains intact. Patients family did not go to hospice home yesterday. They are supposed to go there today. The patient is stable for discharge to hospice home when all arrangements are finalized. The patient may continue to take her lasix and aldactone to help in ease of her breathing. She may discontinue these medications at any time if she wishes. Patient is scheduled January 04 for palliative paracentesis. Patient is to have no aspirin 7 days prior to procedure , however her aspirin will be discontinued at the time of discharge. The patient's indwelling urinary catheter will remain intact for patient comfort. Patient requesting Fleet Enema every Wednesday. DISCHARGE DIAGNOSIS: Acute decompensated liver failure Ascites, secondary to above, status post paracentesis with removal of 12 L fluid History of hereditary hemachromatosis, not awaiting liver transplant as per daughter Urinary tract infection, present on admission, culture positive for Enterococcus faecalis Diabetes mellitus, on insulin Neuropathy under investigation by neurologist outpatient Hypertension History of kidney stone History of coronary artery disease status post CABG Nurse practitioner note has been reviewed by physician. Signing provider agrees with the documented findings, assessment, and plan of care. Patient Condition at Discharge: Fair Plan - Discharge Summary Discharge Rx Participant: Yes New Discharge Prescriptions: New Furosemide [Lasix] 40 mg PO DAILY tab LORazepam [Ativan] 0.5 mg PO TID PRN 3 Days #9 tab PRN Reason: Anxiety Morphine Sulfate Ir [MSIR] 15 mg PO Q3H PRN 3 Days #24 tab PRN Reason: Pain traMADol HCl [Ultram] 50 mg PO QID #12 tab Zolpidem [Ambien] 5 mg PO HS PRN 3 Days #3 tab PRN Reason: Insomnia Na Phos,M-B/Na Phos,Di-Ba [Fleet Adult] 1 dose RECTAL Q7DAYS #1 bottle Continue Ondansetron [Zofran] 4 mg PO BID Spironolactone 100 mg PO Q48H Sennosides/Docusate Sodium [Senna-S Laxative Tablet] 1 tab PO BID Furosemide [Lasix] 40 mg PO DAILY Colace 50mg 50 mg PO DAILY Spironolactone 50 mg PO DAILY Changed diphenhydrAMINE [Benadryl] 50 mg PO Q4H PRN #0 PRN Reason: Itching Discontinued Insulin Aspart [NovoLOG Flexpen] See Protocol SQ AC-TID Insulin Glargine,Hum.rec.anlog [Lantus Solostar] 30 unit SQ BID Furosemide [Lasix] 80 mg PO DAILY Aspirin EC [Ecotrin Low Dose] 81 mg PO DAILY Neomycin 1,000 mg PO BID metroNIDAZOLE [Flagyl] 500 mg PO TID Multivitamins, Thera [Multivitamin (formulary)] 1 tab PO DAILY Lactulose 20 gm PO QID Discharge Medication List Ondansetron [Zofran] 4 mg PO BID 11/03/16 [History] Spironolactone 100 mg PO Q48H 04/16/17 [History] Colace 50mg 50 mg PO DAILY 12/17/17 [History] Furosemide [Lasix] 40 mg PO DAILY 12/17/17 [History] Sennosides/Docusate Sodium [Senna-S Laxative Tablet] 1 tab PO BID 12/17/17 [ History] Spironolactone 50 mg PO DAILY 12/17/17 [History] Furosemide [Lasix] 40 mg PO DAILY tab 12/23/17 [Rx] LORazepam [Ativan] 0.5 mg PO TID PRN 3 Days #9 tab 12/23/17 [Rx] Morphine Sulfate Ir [MSIR] 15 mg PO Q3H PRN 3 Days #24 tab 12/23/17 [Rx] Na Phos,M-B/Na Phos,Di-Ba [Fleet Adult] 1 dose RECTAL Q7DAYS #1 bottle 12/23/17 [Rx] Zolpidem [Ambien] 5 mg PO HS PRN 3 Days #3 tab 12/23/17 [Rx] diphenhydrAMINE [Benadryl] 50 mg PO Q4H PRN #0 12/23/17 [Rx] traMADol HCl [Ultram] 50 mg PO QID #12 tab 12/23/17 [Rx] Follow up Appointment(s)/Referral(s): Matias Baron DO [Primary Care Provider] - As Needed Yolie Chahal MD [STAFF PHYSICIAN] - 01/17/18 12:00 pm Activity/Diet/Wound Care/Special Instructions: Patient may be discharged once final hospice home arrangements are completed January 04 at 1220 arrival for paracentesis NO ASPIRIN 7 days prior to paracentesis per radiology guidelines Continue Lasix and Aldactone as patient wishes for ease of breathing. Patient may discontinue these medications at any time. Continue indwelling urinary catheter for comfort Fleets enema every wednesday Discharge Disposition: DISCH TO HOSPICE [facility]
[2017-12-23 11:56] LABS: Glucose,Whole Blood 217 mg/dL (75-99)
[2017-12-23] MEDS: MULTIVITAMINS, THERA 1 EACH TAB PO SCH (13:19)
[2017-12-23 15:17] VITALS: BP 128/64; PULSE 80; RESP 16; TEMP 97.6
[2017-12-23] MEDS: LEVOFLOXACIN 500 MG TAB PO SCH (16:16)
[2017-12-23 17:10] LABS: Glucose,Whole Blood 245 mg/dL (75-99)
== END 2017-12-23 16:53 | disposition hospice, home (50) | DRG 442 ==
LOC: EC 23:00 → 4SSUR 12-18 04:08 → OBSVTOIN 12-19 20:12
PROVIDERS: ADMIT Family Medicine; ATTEND Family Medicine
PROC: 0W9G3ZX Drainage of Peritoneal Cavity, Percutaneous Approach, Diagnostic (ICD-10-PCS; principal; 2017-12-20)
DX: K72.00 Acute and subacute hepatic failure without coma (principal); R18.8 Other ascites; D68.4 Acquired coagulation factor deficiency; K76.6 Portal hypertension; N39.0 Urinary tract infection, site not specified; E87.1 Hypo-osmolality and hyponatremia; J98.11 Atelectasis; K72.90 Hepatic failure, unspecified without coma; E11.42 Type 2 diabetes mellitus with diabetic polyneuropathy; E87.70 Fluid overload, unspecified; E11.610 Type 2 diabetes mellitus with diabetic neuropathic arthropathy; K74.60 Unspecified cirrhosis of liver; E83.110 Hereditary hemochromatosis; B95.2 Enterococcus as the cause of diseases classified elsewhere; K59.09 Other constipation; I25.10 Atherosclerotic heart disease of native coronary artery without angina pectoris; R25.1 Tremor, unspecified; M54.9 Dorsalgia, unspecified; G47.9 Sleep disorder, unspecified; I10 Essential (primary) hypertension; L30.9 Dermatitis, unspecified; Z79.82 Long term (current) use of aspirin; Z79.4 Long term (current) use of insulin; Z79.899 Other long term (current) drug therapy; Z87.442 Personal history of urinary calculi; Z90.710 Acquired absence of both cervix and uterus; Z95.1 Presence of aortocoronary bypass graft; Z98.51 Tubal ligation status; Z98.42 Cataract extraction status, left eye; Z98.41 Cataract extraction status, right eye; Z88.0 Allergy status to penicillin
CPT/HCPCS: 36415; 49083; 71046; 76705; 80053; 81001; 81003; 82140; 82150; 82550; 82553; 83036; 83690; 83735; 84443; 84484; 85025; 85610; 85730; 87077; 87086; 87186; 88108; 88305; 93005; 96374; 96375; 99285